=== PATIENT | female | born 1955 ===

== ENCOUNTER 2017-02-05 18:25 | Emergency (ER) | payer SELFPAY ==
[2017-02-05 18:55] VITALS: BP 118/72; PULSE 72; RESP 16; TEMP 98.2; O2SAT 100
--- NOTE | 2017-02-05 19:53 | ED PDOC ---
HPI: Back Time Seen by Provider: 02/05/17 19:06 Chief Complaint (Nursing): Back Pain Chief Complaint (Provider): Back Pain History/Exam Limitations: no limitations Additional Complaint(s): 61 y/o female with a past medical history of chronic back pain, presents to the emergency department with a complaint of severe chronic pain after lifting a laundry bag that had detergent inside. Patient states she cannot lift anything heavy because it starts the pain back up. Reports taking Tramadol and Percocet throughout about 4 hours ago with minimal relief of pain. Denies nausea, vomiting, abdominal pain, urinary symptoms such as bleeding, pain while urinating, or bloody stools. Of note, patient has a history of 3 herniated discs located in the lower back for 7 years. States she had a total of 4 epidural completed but the fourth one affected her appetite and the way she felt. Patient's pain management was Dr. Rizo but due to insurance complications she is no longer his patient. Pain management: Will be scheduled soon. Past Medical History Reviewed: Historical Data, Nursing Documentation, Vital Signs Vital Signs: Last Vital Signs Temp 98.2 F 02/05/17 18:51 Pulse 72 02/05/17 18:51 Resp 16 02/05/17 18:51 BP 118/72 02/05/17 18:51 Pulse Ox 100 02/05/17 18:51 - Medical History PMH: HTN Other PMH: Chronic back pain - Family History Family History: States: Unknown Family Hx - Social History Current smoker - smoking cessation education provided: Yes (Light Smoker < 10 Cigarettes Daily ) Alcohol: None Drugs: Denies - Home Medications Home Medications: Ambulatory Orders Medication Instructions Recorded Ketorolac Tromethamine [Toradol] 10 mg PO TID #30 tab 02/05/17 - Allergies Allergies/Adverse Reactions: Allergies Allergy/AdvReac Type Severity Reaction Status Date / Time No Known Allergies Allergy Verified 02/05/17 18:51 Review of Systems ROS Statement: Except As Marked, All Systems Reviewed And Found Negative Gastrointestinal: Negative for: Nausea, Vomiting, Abdominal Pain, Hematochezia, Hematemesis Genitourinary Female: Negative for: Dysuria, Frequency, Incontinence, Hematuria Musculoskeletal: Positive for: Back Pain, Other (Difficulty walking) Physical Exam - Reviewed Nursing Documentation Reviewed: Yes Vital Signs Reviewed: Yes - Physical Exam Appears: Positive for: Non-toxic, No Acute Distress Head Exam: Positive for: ATRAUMATIC, NORMOCEPHALIC Skin: Positive for: Normal Color, Warm, Dry Gastrointestinal/Abdominal: Positive for: Normal Exam, Soft. Negative for: Tenderness Back: Negative for: Vertebral Tenderness, Other (No midline tenderness) Extremity: Positive for: Normal ROM (Full). Negative for: Other (Negative straigt leg test) Neurologic/Psych: Positive for: Alert, Oriented - ECG O2 Sat by Pulse Oximetry: 100 (RA) Pulse Ox Interpretation: Normal Medical Decision Making Medical Decision Making: Time: 19:06 Initial impression: Exacerbation of chronic back pain Initial plan: --Toradol 30 mg IM --Urinalysis Stat --Revaluation Time: 19:56 --Patient feels relief of pain after medication. Upon provider reevaluation patient is feeling better, is medically stable, and requires no further treatment in the ED at this time. Patient will be discharged home with Rx for Toradol 10 mg. Counseling was provided and all questions were answered regarding diagnosis and need for follow up with pain management. There is agreement to discharge plan. Return if symptoms persist or worsen. Clinical Impression: Exacerbation of chronic back pain Scribe Attestation: Documented by Bren Clark, acting as a scribe for Negra Medina PA-C. Provider Scribe Attestation: All medical record entries made by the Scribe were at my direction and personally dictated by me. I have reviewed the chart and agree that the record accurately reflects my personal performance of the history, physical exam, medical decision making, and the department course for this patient. I have also personally directed, reviewed, and agree with the discharge instructions and disposition. Disposition - Clinical Impression Clinical Impression: Back pain Counseled Patient/Family Regarding: Studies Performed, Rx Given - Disposition Disposition: Routine/Home Disposition Time: 20:00 Condition: STABLE Prescriptions: Ketorolac Tromethamine [Toradol] 10 mg PO TID #30 tab Instructions: Back Pain (ED), Back Exercises (ED)
[2017-02-05 20:42] LABS: RBC URINE 6 /hpf (0-3); URINE BACTERIA FEW (<OCC); URINE BILIRUBIN NEGATIVE (NEGATIVE); URINE BLOOD NEGATIVE (NEGATIVE); URINE COLOR YELLOW (YELLOW); URINE GLUCOSE (UA) NEG (Normal); URINE KETONE NEGATIVE (NEGATIVE); URINE LEUKOCYTE ESTERASE SMALL Leu/uL (Negative); URINE PROTEIN 30 mg/dL (NEGATIVE); URINE UROBILINOGEN 0.2-1.0 mg/dL (0.2-1.0); WBC URINE 16 /hpf (0-5)
== END 2017-02-05 20:22 | disposition home or self-care (01) ==
LOC: H.ER 18:25
DX: M54.9 Dorsalgia, unspecified (principal); G89.29 Other chronic pain; I10 Essential (primary) hypertension
CPT/HCPCS: 81003; 96372; 99282; J1885

== ENCOUNTER 2017-05-27 13:47 | Emergency (ER) | payer MEDICAID ==
[2017-05-27 14:01] VITALS: BP 107/65; PULSE 74; RESP 18; TEMP 96.8; O2SAT 99
== END 2017-05-27 17:52 | disposition left against medical advice (07) ==
LOC: H.ER 13:47
DX: Z02.89 Encounter for other administrative examinations (principal)

== ENCOUNTER 2017-07-28 11:41 | Emergency (ER) | payer MEDICAID ==
[2017-07-28 11:54] VITALS: BP 119/83; PULSE 63; RESP 18; TEMP 97; O2SAT 99
[2017-07-28] MEDS ORDERED: Oxycodone/Acetaminophen 5/325 mg Tab PO STA (12:15)
--- NOTE | 2017-07-28 12:38 | ED PDOC ---
HPI: Back Time Seen by Provider: 07/28/17 12:15 Chief Complaint (Nursing): Back Pain Chief Complaint (Provider): Back pain History Per: Patient History/Exam Limitations: no limitations Onset/Duration Of Symptoms: Hrs (8) Current Symptoms Are (Timing): Still Present Pain Scale Rating Of: 8 Previous Symptoms: Chronic Pain (back) Associated Symptoms: None Additional Complaint(s): Roberta Velasco is a 61 year old female, with a past medical history of herniated disc and HTN, who presents to the emergency department complaining of a worsening chronic back pain onset since 8 hrs ago. She states she has been prescribed Percocet for the pain. Patient reports she spent the whole night taking care of her sick daughter. She also reports stubbing her toe and is concerned of having an injury. She denies any fever or chills. No further medical complaints. PMD: None provided. Past Medical History Vital Signs: Last Vital Signs Temp 97 F L 07/28/17 11:52 Pulse 63 07/28/17 11:52 Resp 18 07/28/17 11:52 BP 119/83 07/28/17 11:52 Pulse Ox 99 07/28/17 11:52 - Medical History PMH: HTN - Family History Family History: States: Unknown Family Hx - Home Medications Home Medications: Ambulatory Orders Medication Instructions Recorded Ketorolac Tromethamine [Toradol] 10 mg PO TID #30 tab 02/05/17 Naproxen 1 tab PO Q12 PRN #10 tab 07/28/17 diaZEpam [Valium] 5 mg PO Q8 PRN #3 tab 07/28/17 - Allergies Allergies/Adverse Reactions: Allergies Allergy/AdvReac Type Severity Reaction Status Date / Time No Known Allergies Allergy Verified 02/05/17 18:51 Review of Systems ROS Statement: Except As Marked, All Systems Reviewed And Found Negative Constitutional: Negative for: Fever, Chills Musculoskeletal: Positive for: Back Pain (chronic lower), Foot Pain (stubbed toe ) Physical Exam - Reviewed Nursing Documentation Reviewed: Yes Vital Signs Reviewed: Yes - Physical Exam Appears: Positive for: Well, Non-toxic, No Acute Distress Head Exam: Positive for: ATRAUMATIC, NORMAL INSPECTION, NORMOCEPHALIC Skin: Positive for: Normal Color, Warm, Dry Eye Exam: Positive for: Normal appearance Neck: Positive for: Normal, Painless ROM, Supple Respiratory: Negative for: Respiratory Distress Back: Positive for: Vertebral Tenderness (mild paralumbar. ) Extremity: Positive for: Other (Ecchymosis noted on 5th right foot) Neurologic/Psych: Positive for: Alert, Oriented - ECG O2 Sat by Pulse Oximetry: 99 (RA) Pulse Ox Interpretation: Normal - Progress ED Course And Treament: xry of foot: no fx Medical Decision Making Medical Decision Making: Initial Impression: Chronic back pain Initial Plan: --Percocet 5/325 mg Tab --Foot right 5th digit (Toe) [RAD] --reevaluation Scribe Attestation: Documented by Anders Bravo, acting as a scribe for Liset PRICE. Provider Scribe Attestation: All medical record entries made by the Scribe were at my direction and personally dictated by me. I have reviewed the chart and agree that the record accurately reflects my personal performance of the history, physical exam, medical decision making, and the department course for this patient. I have also personally directed, reviewed, and agree with the discharge instructions and disposition. Disposition - Clinical Impression Clinical Impression: Chronic back pain, Toe contusion - Patient ED Disposition Is Patient to be Admitted: No - Disposition Referrals: [facility] [Outside] [facility] [Outside] Disposition: Routine/Home Disposition Time: 13:18 Condition: FAIR Prescriptions: diaZEpam [Valium] 5 mg PO Q8 PRN #3 tab PRN Reason: Muscle Spasm Naproxen 1 tab PO Q12 PRN #10 tab PRN Reason: Pain, Moderate (4-7) Instructions: Chronic Back Pain (ED), Foot Contusion (ED) Forms: [employer] (Macedonian), [facility] School/Work Excuse
[2017-07-28] MEDS ORDERED: Oxycodone/Acetaminophen 5/325 mg Tab ONE (13:04)
--- NOTE | 2017-07-28 13:44 | RAD ---
PROCEDURE: Radiographs of the right 5th toe INDICATION: COMPARISON: None. FINDINGS: Bone alignment is normal. There is no evidence of bone destruction or acute fracture. The joint spaces are preserved. The visualized soft tissues are unremarkable. IMPRESSION: No acute fracture or dislocation.
== END 2017-07-28 13:40 | disposition home or self-care (01) ==
LOC: H.ER 11:41
DX: M54.5 Low back pain (principal); S90.112A Contusion of left great toe without damage to nail, initial encounter; W22.8XXA Striking against or struck by other objects, initial encounter; Y92.89 Other specified places as the place of occurrence of the external cause; G89.29 Other chronic pain; I10 Essential (primary) hypertension

== ENCOUNTER 2017-11-29 21:03 | Emergency (ER) | payer MEDICAID ==
[2017-11-29 21:11] VITALS: BP 117/73; PULSE 72; RESP 18; TEMP 98.8; O2SAT 98
--- NOTE | 2017-11-29 21:44 | ED PDOC ---
HPI: General Adult Time Seen by Provider: 11/29/17 21:13 Chief Complaint (Nursing): Back Pain Chief Complaint (Provider): Back pain, left eye discomfort History Per: Patient History/Exam Limitations: no limitations Onset/Duration Of Symptoms: Persistent Have you had recent travel within the past 21 days to any of the following countries: [place], [place], [place] or [place]?: No Additional History Per: Patient Additional Complaint(s): 62yo female, with chronic low back pain, herniated disks, presents to ER complaining of lower back pain. Patient states she took a Percocet tab earlier today with relief of pain however, pain presented again when the "medication wore off." She denies any new trauma, injury, bowel or bladder dysfunction. Patient has a secondary complaint of left eye redness and blurry vision. No other complaints. Past Medical History Reviewed: Historical Data, Nursing Documentation, Vital Signs Vital Signs: Last Vital Signs Temp 98.8 F 11/29/17 21:07 Pulse 72 11/29/17 21:07 Resp 18 11/29/17 21:07 BP 117/73 11/29/17 21:07 Pulse Ox 98 11/29/17 21:49 - Medical History PMH: HTN - Surgical History Surgical History: No Surg Hx - Family History Family History: States: Unknown Family Hx - Home Medications Home Medications: Ambulatory Orders Medication Instructions Recorded Ketorolac Tromethamine [Toradol] 10 mg PO TID #30 tab 02/05/17 diaZEpam [Valium] 5 mg PO Q8 PRN #3 tab 07/28/17 Polymyxin/Trimethoprim Sulfate 1 drop XX Q6H 10 Days bottle 11/29/17 [Polytrim Ophth Soln] oxyCODONE/Acetaminophen [Percocet 1 ea PO Q6H PRN #10 tab 11/29/17 5/325 mg Tab] - Allergies Allergies/Adverse Reactions: Allergies Allergy/AdvReac Type Severity Reaction Status Date / Time No Known Allergies Allergy Verified 02/05/17 18:51 Review of Systems ROS Statement: Except As Marked, All Systems Reviewed And Found Negative Genitourinary Female: Negative for: Dysuria, Incontinence, Hematuria Musculoskeletal: Positive for: Back Pain (lower) Physical Exam - Reviewed Nursing Documentation Reviewed: Yes Vital Signs Reviewed: Yes - Physical Exam Appears: Positive for: Non-toxic, No Acute Distress Head Exam: Positive for: NORMAL INSPECTION Skin: Positive for: Normal Color Eye Exam: Positive for: Normal appearance, EOMI, PERRL. Negative for: Conjunctival injection Neck: Positive for: Supple Cardiovascular/Chest: Positive for: Regular Rate, Rhythm Respiratory: Positive for: Normal Breath Sounds. Negative for: Respiratory Distress Back: Positive for: Other (lower back tenderness, diffuse) Neurologic/Psych: Positive for: Alert, Oriented. Negative for: Motor/Sensory Deficits - ECG O2 Sat by Pulse Oximetry: 98 (RA) Pulse Ox Interpretation: Normal Medical Decision Making Medical Decision Making: Impression: Chronic low back pain Plan: -- Pain medication - Percocet 5/325mg 1045 - PT reports feeling much better on re-revaluation. No recnet Rx on [place] Rx Scribe Attestation: Documented by Ines Spencer acting as a scribe for ALBERT Jeong Provider Attestation: All medical record entries made by the Scribe were at my direction and personally dictated by me. I have reviewed the chart and agree that the record accurately reflects my personal performance of the history, physical exam, medical decision making, and the department course for this patient. I have also personally directed, reviewed, and agree with the discharge instructions and disposition. Disposition - Clinical Impression Clinical Impression: Conjunctivitis, Chronic back pain - Disposition Disposition: Routine/Home Disposition Time: 22:46 Condition: GOOD Prescriptions: oxyCODONE/Acetaminophen [Percocet 5/325 mg Tab] 1 ea PO Q6H PRN #10 tab PRN Reason: Pain, Severe (8-10) Polymyxin/Trimethoprim Sulfate [Polytrim Ophth Soln] 1 drop XX Q6H 10 Days bottle Instructions: Conjunctivitis ([place]), Chronic Pain (DC) Forms: [employer] (Greenlandic)
[2017-11-29] MEDS ORDERED: Oxycodone/Acetaminophen 5/325 mg Tab PO STA (22:02)
== END 2017-11-29 22:50 | disposition home or self-care (01) ==
LOC: H.ER 21:03
DX: M54.9 Dorsalgia, unspecified (principal); H10.9 Unspecified conjunctivitis; G89.29 Other chronic pain; I10 Essential (primary) hypertension

== ENCOUNTER 2017-12-02 12:40 | Emergency (ER) | payer MEDICAID ==
[2017-12-02 12:40] VITALS: BMI 19.8
[2017-12-02 12:47] VITALS: BP 93/60; PULSE 75; RESP 16; TEMP 98.2; O2SAT 100
--- NOTE | 2017-12-02 13:47 | ED PDOC ---
HPI: Back Time Seen by Provider: 12/02/17 12:42 Chief Complaint (Nursing): Back Pain Chief Complaint (Provider): Back pain History Per: Patient History/Exam Limitations: no limitations Onset/Duration Of Symptoms: Days, Persistent Current Symptoms Are (Timing): Still Present Additional Complaint(s): 62yo female, with chronic low back pain, herniated disks, presents to ER complaining of lower back pain. Patient states she took a Percocet tab earlier today with relief of pain however, pain presented again when the "medication wore off." She denies any new trauma, injury, bowel or bladder dysfunction. Patient was seen in this facility on 11/29/17 and was given Percocet 1 tab PO in ER with immediate relief of symptoms. She is currently requesting an injection stating that is what alleviates her pain the best. Past Medical History Reviewed: Historical Data, Nursing Documentation, Vital Signs Vital Signs: Last Vital Signs Temp 98.2 F 12/02/17 12:44 Pulse 75 12/02/17 12:44 Resp 16 12/02/17 12:44 BP 93/60 L 12/02/17 12:44 Pulse Ox 100 12/02/17 12:44 - Medical History PMH: Arthritis (chronic, left knee), Back Problems (herniated discs x3 (low back )), HIV, HTN, Hypercholesterolemia, Hyperlipidemia, Osteoporosis Denies: Diabetes (patient denies), Chronic Kidney Disease - Surgical History Surgical History: (x1) - Family History Family History: States: Unknown Family Hx, Diabetes, Hypertension - Home Medications Home Medications: Ambulatory Orders Medication Instructions Recorded DULoxetine [Cymbalta] 60 mg PO DAILY 11/14/16 Darunavir [Prezista] 800 mg PO HS 11/14/16 Emtricitabine/Tenofovir Diso 1 tab PO HS 11/14/16 [Truvada 200 MG-300 MG] Enalapril Maleate [Vasotec] 5 mg PO DAILY 11/14/16 Ritonavir [Norvir] 100 mg PO HS 11/14/16 Cyclobenzaprine [Flexeril] 10 mg PO TID PRN #20 tab 11/28/16 Ascorbic Acid [Vitamin C] 1 tab PO DAILY 01/14/17 Gabapentin [Neurontin] 800 mg PO TID 01/14/17 QUEtiapine [Seroquel] 100 mg PO HS 01/14/17 traMADol [Ultram] 50 mg PO BID PRN 01/14/17 Aspirin/Dipyridamole [Aggrenox 1 ea PO BID #60 cap 01/17/17 25-200 mg] Atorvastatin [Lipitor] 40 mg PO HS #30 tab 01/17/17 Nicotine 21 mg/24 hr [Nicoderm Cq] 1 patch TD DAILY #30 patch 01/17/17 Nicotine Gum [Nicorette Gum] 2 mg PO Q2H #60 gum 01/17/17 oxyCODONE/Acetaminophen [Percocet 1 ea PO Q4H PRN #10 tab 01/17/17 5/325 mg Tab] valACYclovir [Valtrex] 1 gm PO DAILY #30 tab 01/17/17 oxyCODONE/Acetaminophen [Percocet 1 ea PO Q6H PRN #5 tab 03/17/17 5/325 mg Tab] Cyclobenzaprine [Cyclobenzaprine 10 mg PO BID #14 tab 05/05/17 HCl] Lidocaine 5% [Lidoderm] 1 patch TOP DAILY #7 patch 05/05/17 Naproxen [Naprosyn] 500 mg PO Q12 PRN #20 tablet 05/05/17 Polymyxin/Trimethoprim Sulfate 1 drop XX Q6H 10 Days bottle 06/18/17 [Polytrim Ophth Soln] oxyCODONE/Acetaminophen [Percocet 1 ea PO Q6H PRN #5 tab 06/18/17 5/325 mg Tab] - Allergies Allergies/Adverse Reactions: Allergies Allergy/AdvReac Type Severity Reaction Status Date / Time No Known Allergies Allergy Verified 12/02/17 12:44 Review of Systems ROS Statement: Except As Marked, All Systems Reviewed And Found Negative Constitutional: Negative for: Fever Musculoskeletal: Positive for: Back Pain Neurological: Negative for: Weakness, Numbness Physical Exam - Reviewed Nursing Documentation Reviewed: Yes Vital Signs Reviewed: Yes - Physical Exam Appears: Positive for: Non-toxic, No Acute Distress Head Exam: Positive for: ATRAUMATIC, NORMAL INSPECTION, NORMOCEPHALIC Skin: Positive for: Normal Color Eye Exam: Positive for: Normal appearance Neck: Positive for: Supple Cardiovascular/Chest: Positive for: Regular Rate, Rhythm. Negative for: Murmur Respiratory: Positive for: Normal Breath Sounds. Negative for: Respiratory Distress Back: Positive for: Other (mild tenderness to bilateral paralumbar area) Extremity: Positive for: Normal ROM. Negative for: Deformity, Swelling Neurologic/Psych: Positive for: Alert, Oriented. Negative for: Motor/Sensory Deficits - ECG O2 Sat by Pulse Oximetry: 100 (RA) Pulse Ox Interpretation: Normal Medical Decision Making Medical Decision Making: Impression: Chronic back pain Plan: -- Toradol 30 mg IM Time: 1349 Patient wants to call a cab immediately after she got Toradol IM. She reports feeling better and is eager to go home. Scribe Attestation: Documented by Ines Spencer acting as a scribe for ALBERT Jeong Provider Attestation: All medical record entries made by the Scribe were at my direction and personally dictated by me. I have reviewed the chart and agree that the record accurately reflects my personal performance of the history, physical exam, medical decision making, and the department course for this patient. I have also personally directed, reviewed, and agree with the discharge instructions and disposition. Disposition - Clinical Impression Clinical Impression: Chronic back pain - Disposition Disposition Time: 13:52 Condition: STABLE Instructions: Chronic Pain Forms: [employer] (Citizen [place])
== END 2017-12-02 14:14 | disposition home or self-care (01) ==
LOC: H.ER 12:40 → MERGE 12:40 → H.ER 14:14
DX: G89.29 Other chronic pain (principal); M54.5 Low back pain; I12.9 Hypertensive chronic kidney disease with stage 1 through stage 4 chronic kidney disease, or unspecified chronic kidney disease; Z79.82 Long term (current) use of aspirin; M81.0 Age-related osteoporosis without current pathological fracture; N18.9 Chronic kidney disease, unspecified
CPT/HCPCS: 96372; 99282; J1885

== ENCOUNTER 2017-12-12 18:23 | Emergency (ER) | payer MEDICAID ==
[2017-12-12 18:23] VITALS: BMI 19.8
[2017-12-12 18:28] VITALS: BP 100/65; PULSE 72; RESP 20; TEMP 98.4; O2SAT 99
--- NOTE | 2017-12-12 19:28 | ED PDOC ---
HPI: Back Time Seen by Provider: 12/12/17 19:15 Chief Complaint (Nursing): Back Pain Chief Complaint (Provider): Back Pain History Per: Patient History/Exam Limitations: no limitations Onset/Duration Of Symptoms: Days Current Symptoms Are (Timing): Still Present Quality Of Discomfort: "Pain" Severity: None Previous Symptoms: Chronic Pain Associated Symptoms: None Exacerbating Factor(s): Movement Additional Complaint(s): 62 year old female with a past medical history of herniated disc presents to the emergency department complaining of back pain. The patient states that she was seen here in [place] in last week and was given a shot for pain. She reports that she took percocet at 8am for relief of her symptoms. The patient states that her pain was triggered when she tried to prevent herself from falling the night before. Denies numbness, tingling. Of note: Patient states she will be going to her primary care provider to schedule a time to get a shot of epidural. - Risk Factors AAA Risk Factors: Pos: Older Than 49 Years Of Age, Hypertension Past Medical History Reviewed: Historical Data, Nursing Documentation, Vital Signs Vital Signs: Last Vital Signs Temp 98.4 F 12/12/17 18:25 Pulse 72 12/12/17 18:25 Resp 20 12/12/17 18:25 BP 100/65 12/12/17 18:25 Pulse Ox 99 12/12/17 18:25 - Medical History PMH: Arthritis (chronic, left knee), Back Problems (herniated discs x3 (low back )), HIV, HTN, Hypercholesterolemia, Hyperlipidemia, Osteoporosis, TIA Denies: Diabetes (patient denies), Chronic Kidney Disease - Surgical History Surgical History: (x1) - Family History Family History: States: Unknown Family Hx, Diabetes, Hypertension - Social History Current smoker - smoking cessation education provided: Yes (Heavy Smoker > 10 Cigarettes Daily) Ex-Smoker (has not smoked in the last 12 months): Yes Alcohol: None Drugs: Denies - Home Medications Home Medications: Ambulatory Orders Medication Instructions Recorded DULoxetine [Cymbalta] 60 mg PO DAILY 11/14/16 Darunavir [Prezista] 800 mg PO HS 11/14/16 Emtricitabine/Tenofovir Diso 1 tab PO HS 11/14/16 [Truvada 200 MG-300 MG] Enalapril Maleate [Vasotec] 5 mg PO DAILY 11/14/16 Ritonavir [Norvir] 100 mg PO HS 11/14/16 Cyclobenzaprine [Flexeril] 10 mg PO TID PRN #20 tab 11/28/16 Ascorbic Acid [Vitamin C] 1 tab PO DAILY 01/14/17 Gabapentin [Neurontin] 800 mg PO TID 01/14/17 QUEtiapine [Seroquel] 100 mg PO HS 01/14/17 traMADol [Ultram] 50 mg PO BID PRN 01/14/17 Aspirin/Dipyridamole [Aggrenox 1 ea PO BID #60 cap 01/17/17 25-200 mg] Atorvastatin [Lipitor] 40 mg PO HS #30 tab 01/17/17 Nicotine 21 mg/24 hr [Nicoderm Cq] 1 patch TD DAILY #30 patch 01/17/17 Nicotine Gum [Nicorette Gum] 2 mg PO Q2H #60 gum 01/17/17 oxyCODONE/Acetaminophen [Percocet 1 ea PO Q4H PRN #10 tab 01/17/17 5/325 mg Tab] valACYclovir [Valtrex] 1 gm PO DAILY #30 tab 01/17/17 Ketorolac Tromethamine [Toradol] 10 mg PO TID #30 tab 02/05/17 oxyCODONE/Acetaminophen [Percocet 1 ea PO Q6H PRN #5 tab 03/17/17 5/325 mg Tab] Cyclobenzaprine [Cyclobenzaprine 10 mg PO BID #14 tab 05/05/17 HCl] Lidocaine 5% [Lidoderm] 1 patch TOP DAILY #7 patch 05/05/17 Naproxen [Naprosyn] 500 mg PO Q12 PRN #20 tablet 05/05/17 Polymyxin/Trimethoprim Sulfate 1 drop XX Q6H 10 Days bottle 06/18/17 [Polytrim Ophth Soln] oxyCODONE/Acetaminophen [Percocet 1 ea PO Q6H PRN #5 tab 06/18/17 5/325 mg Tab] diaZEpam [Valium] 5 mg PO Q8 PRN #3 tab 07/28/17 Polymyxin/Trimethoprim Sulfate 1 drop XX Q6H 10 Days bottle 11/29/17 [Polytrim Ophth Soln] oxyCODONE/Acetaminophen [Percocet 1 ea PO Q6H PRN #10 tab 11/29/17 5/325 mg Tab] - Allergies Allergies/Adverse Reactions: Allergies Allergy/AdvReac Type Severity Reaction Status Date / Time No Known Allergies Allergy Verified 02/05/17 18:51 Review of Systems ROS Statement: Except As Marked, All Systems Reviewed And Found Negative Cardiovascular: Negative for: Chest Pain Gastrointestinal: Negative for: Abdominal Pain Musculoskeletal: Positive for: Back Pain Physical Exam - Reviewed Nursing Documentation Reviewed: Yes Vital Signs Reviewed: Yes - Physical Exam Appears: Positive for: Non-toxic, No Acute Distress Head Exam: Positive for: NORMAL INSPECTION Skin: Positive for: Normal Color, Warm, Dry. Negative for: Rash Eye Exam: Positive for: Normal appearance, EOMI, PERRL. Negative for: Nystagmus Back: Positive for: Other (right lower lumbar tenderness). Negative for: L CVA Tenderness, R CVA Tenderness Neurologic/Psych: Positive for: Alert, Oriented - ECG O2 Sat by Pulse Oximetry: 99 (RA) Pulse Ox Interpretation: Normal Medical Decision Making Medical Decision Makin Initial Impression 62 year old female presenting with back pain Initial Plan: * Toradol 30mg IM * Percocet 3/325 mg 1 tab PO * Reevaluation Documented by Charisse Marino acting as a scribe for Liset Downing PA-C. All medical record entries made by the Scribe were at my direction and personally dictated by me. I have reviewed the chart and agree that the record accurately reflects my personal performance of the history, physical exam, medical decision making, and the department course for this patient. I have also personally directed, reviewed, and agree with the discharge instructions and disposition. Disposition - Clinical Impression Clinical Impression: Chronic back pain - Patient ED Disposition Is Patient to be Admitted: No - Disposition Disposition: Routine/Home Disposition Time: 19:58 Condition: FAIR Instructions: Chronic Pain (DC), Low Back Pain (DC) Forms: [employer] (Bahamian)
[2017-12-12] MEDS ORDERED: Oxycodone/Acetaminophen 5/325 mg Tab PO STA (19:30)
== END 2017-12-12 20:23 | disposition home or self-care (01) ==
LOC: H.ER 18:23
DX: M54.9 Dorsalgia, unspecified (principal); E78.00 Pure hypercholesterolemia, unspecified; G89.29 Other chronic pain; I12.9 Hypertensive chronic kidney disease with stage 1 through stage 4 chronic kidney disease, or unspecified chronic kidney disease; Z86.73 Personal history of transient ischemic attack (TIA), and cerebral infarction without residual deficits
CPT/HCPCS: 96372; 99283; J1885

== ENCOUNTER 2018-01-19 15:36 | Emergency (ER) | payer MEDICAID ==
[2018-01-19 15:36] VITALS: BMI 19.8
[2018-01-19 15:42] VITALS: BP 103/62; PULSE 60; RESP 16; TEMP 98.5; O2SAT 99
[2018-01-19] MEDS ORDERED: Oxycodone/Acetaminophen 5/325 mg Tab PO STA (16:10)
--- NOTE | 2018-01-19 16:14 | ED PDOC ---
Upper Extremity Pain/Injury Time Seen by Provider: 01/19/18 15:45 Chief Complaint (Nursing): Upper Extremity Problem/Injury Chief Complaint (Provider): Right Shoulder and Right Hip Pain History Per: Patient History/Exam Limitations: no limitations Onset/Duration Of Symptoms: Other (chronic) Current Symptoms Are (Timing): Still Present Additional Complaint(s): 62 y/o female with a pmhx of arthritis, HIV, HTN, hypercholesterolemia, cardiomegaly, carpal tunnel, radiculopathy, herniated disc, foot drop, and polio , who presents to the ED for evaluation of acute on chronic bursitis pain of the right shoulder and right hip. Patient states she took 3 Ibuprofen prior to arrival without relief. She denies any recent falls or trauma. She states her current symptoms are consistent with past flare ups. Patient states she is compliant with her HIV medication. She also reports her last viral load was checked 2-3 months ago and was undetectable. PMD: Dr. Rizo Past Medical History Reviewed: Historical Data, Nursing Documentation, Vital Signs Vital Signs: Last Vital Signs Temp 98.5 F 01/19/18 15:40 Pulse 60 01/19/18 15:40 Resp 16 01/19/18 15:40 BP 103/62 01/19/18 15:40 Pulse Ox 99 01/19/18 15:40 - Medical History PMH: Arthritis (chronic, left knee), Back Problems (herniated discs x3 (low back )), HIV, HTN, Hypercholesterolemia, Hyperlipidemia, Osteoporosis, TIA Denies: Diabetes (patient denies), Chronic Kidney Disease - Surgical History Surgical History: (x1) Other surgeries: Procedure for polio - Family History Family History: States: Unknown Family Hx, Diabetes, Hypertension - Social History Current smoker - smoking cessation education provided: Yes (7 cigarettes a day) Alcohol: None Drugs: Denies - Home Medications Home Medications: Ambulatory Orders Medication Instructions Recorded DULoxetine [Cymbalta] 60 mg PO DAILY 11/14/16 Darunavir [Prezista] 800 mg PO HS 11/14/16 Emtricitabine/Tenofovir Diso 1 tab PO HS 11/14/16 [Truvada 200 MG-300 MG] Enalapril Maleate [Vasotec] 5 mg PO DAILY 11/14/16 Ritonavir [Norvir] 100 mg PO HS 11/14/16 Cyclobenzaprine [Flexeril] 10 mg PO TID PRN #20 tab 11/28/16 Ascorbic Acid [Vitamin C] 1 tab PO DAILY 01/14/17 Gabapentin [Neurontin] 800 mg PO TID 01/14/17 QUEtiapine [Seroquel] 100 mg PO HS 01/14/17 traMADol [Ultram] 50 mg PO BID PRN 01/14/17 Aspirin/Dipyridamole [Aggrenox 1 ea PO BID #60 cap 01/17/17 25-200 mg] Atorvastatin [Lipitor] 40 mg PO HS #30 tab 01/17/17 Nicotine 21 mg/24 hr [Nicoderm Cq] 1 patch TD DAILY #30 patch 01/17/17 Nicotine Gum [Nicorette Gum] 2 mg PO Q2H #60 gum 01/17/17 oxyCODONE/Acetaminophen [Percocet 1 ea PO Q4H PRN #10 tab 01/17/17 5/325 mg Tab] valACYclovir [Valtrex] 1 gm PO DAILY #30 tab 01/17/17 Ketorolac Tromethamine [Toradol] 10 mg PO TID #30 tab 02/05/17 oxyCODONE/Acetaminophen [Percocet 1 ea PO Q6H PRN #5 tab 03/17/17 5/325 mg Tab] Cyclobenzaprine [Cyclobenzaprine 10 mg PO BID #14 tab 05/05/17 HCl] Lidocaine 5% [Lidoderm] 1 patch TOP DAILY #7 patch 05/05/17 Naproxen [Naprosyn] 500 mg PO Q12 PRN #20 tablet 05/05/17 Polymyxin/Trimethoprim Sulfate 1 drop XX Q6H 10 Days bottle 06/18/17 [Polytrim Ophth Soln] oxyCODONE/Acetaminophen [Percocet 1 ea PO Q6H PRN #5 tab 06/18/17 5/325 mg Tab] diaZEpam [Valium] 5 mg PO Q8 PRN #3 tab 07/28/17 Polymyxin/Trimethoprim Sulfate 1 drop XX Q6H 10 Days bottle 11/29/17 [Polytrim Ophth Soln] oxyCODONE/Acetaminophen [Percocet 1 ea PO Q6H PRN #10 tab 11/29/17 5/325 mg Tab] Acetaminophen [Acetaminophen 8 650 mg PO Q8 #24 tablet.er 01/19/18 Hour] Meloxicam [Mobic] 15 mg PO DAILY #14 tab 01/19/18 - Allergies Allergies/Adverse Reactions: Allergies Allergy/AdvReac Type Severity Reaction Status Date / Time No Known Allergies Allergy Verified 02/05/17 18:51 Review of Systems ROS Statement: Except As Marked, All Systems Reviewed And Found Negative Musculoskeletal: Positive for: Shoulder Pain (right), Other (right hip) Physical Exam - Reviewed Nursing Documentation Reviewed: Yes Vital Signs Reviewed: Yes - Physical Exam Comments: GENERAL APPEARANCE: Patient is awake, alert, oriented x 3, in no acute distress. SKIN: Warm, dry; (-) cyanosis. NECK: Supple, FROM ENT: Mucus membranes moist. CHEST AND RESPIRATORY: (-) chest wall tenderness. Lungs: (-) rales, (-) rhonchi , (-) wheezes; breath sounds equal bilaterally. Speaking in full sentences, respirations even and nonlabored. HEART AND CARDIOVASCULAR: (-) irregularity; (-) murmur, (-) gallop. ABDOMEN AND GI: Soft; (-) tenderness (-) guarding (-) distention. EXTREMITIES: Right shoulder: (+) diffuse tenderness, (+) slighty limited extension and abduction ROM secondary to pain (-) erythema (-) overlying skin changes (-) ecchymosis (-) deformity. Sensation intact. 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 Right Hip: tenderness to lateral right hip (+) slightly limited ROM on flexion secondary to pain (-) erythema (-) overlying skin changes (-) ecchymosis (-) deformity. Sensation intact. NEURO AND PSYCH: Mental status as above. No focal deficit (-) slurred speech (- ) facial droop (-) aphasia. Tongue and uvula midline; (-) facial asymmetry. EOMI and painless. - ECG O2 Sat by Pulse Oximetry: 99 (RA) Pulse Ox Interpretation: Normal Medical Decision Making Medical Decision Makin:10 Initial Impression: Acute on chronic joint pain, bursitis Plan: --Percocet 1 tab --Toradol 30mg IM --Reevaluation 17:29 On reevaluation, patient is complaining of persistent pain. Will administer 5mg Valium PO. Patient reports she is not driving home. 18:11 On re-evaluation, patient reports improvement of symptoms. On exam, patient remains AAOx3, in no acute distress. On exam, neck is supple, lungs CTA, cardiac RRR, abdomen is soft and non-tender, neuro exam shows no focal findings. VSS, Patient is stable for discharge. Based on history and exam results, plan will be for discharge and outpatient follow up. Advised to follow up with primary care physician / referred physician (delia-Dr Steel) in 1-2 days without fail. Advised to take medication as prescribed. Return to the emergency room at any time for any new or worsening symptoms. Patient states she fully agrees with and understands discharge instructions. States that she agrees with the plan and disposition. Verbalized and repeated discharge instructions and plan. I have given the patient opportunity to ask any additional questions. Scribe Attestation: Documented by Orlando Sadler, acting as a scribe for DWAIN Dolan. Provider Scribe Attestation: All medical record entries made by the Scribe were at my direction and personally dictated by me. I have reviewed the chart and agree that the record accurately reflects my personal performance of the history, physical exam, medical decision making, and the department course for this patient. I have also personally directed, reviewed, and agree with the discharge instructions and disposition. Disposition - Clinical Impression Clinical Impression: Chronic pain, Shoulder pain, acute, Hip pain - Patient ED Disposition Is Patient to be Admitted: No Counseled Patient/Family Regarding: Diagnosis, Need For Followup, Rx Given - Disposition Referrals: Miguelito Steel III, MD [Staff Provider] - Disposition: Routine/Home Disposition Time: 18:16 Condition: STABLE Prescriptions: Acetaminophen [Acetaminophen 8 Hour] 650 mg PO Q8 #24 tablet.er Meloxicam [Mobic] 15 mg PO DAILY #14 tab Instructions: Chronic Pain, Hip Pain in Older People, Shoulder Pain (DC) Forms: [employer] (Palauan) Print Language: SCOTTISH - POA Present On Arrival: None
[2018-01-19] MEDS ORDERED: Oxycodone/Acetaminophen 5/325 mg Tab ONE (16:16)
== END 2018-01-19 19:28 | disposition home or self-care (01) ==
LOC: H.ER 15:36
DX: M25.511 Pain in right shoulder (principal); M25.551 Pain in right hip; E78.00 Pure hypercholesterolemia, unspecified; I10 Essential (primary) hypertension; Z86.73 Personal history of transient ischemic attack (TIA), and cerebral infarction without residual deficits; B20 Human immunodeficiency virus [HIV] disease; M81.0 Age-related osteoporosis without current pathological fracture; G89.29 Other chronic pain; Z79.82 Long term (current) use of aspirin
CPT/HCPCS: 96372; 99283; J1885

== ENCOUNTER 2018-08-22 17:19 | Emergency (ER) | payer MEDICAID ==
[2018-08-22 17:19] VITALS: BMI 19.8
[2018-08-22 17:42] VITALS: BP 122/70; PULSE 74; RESP 18; TEMP 98.3; O2SAT 98
--- NOTE | 2018-08-22 18:16 | ED PDOC ---
HPI: Back Time Seen by Provider: 08/22/18 17:43 Chief Complaint (Nursing): Back Pain Chief Complaint (Provider): Chronic Back Pain History Per: Patient History/Exam Limitations: no limitations Onset/Duration Of Symptoms: Days (worsening x2 but chronic x years) Current Symptoms Are (Timing): Still Present Previous Symptoms: Back Pain, Chronic Pain Additional Complaint(s): 62 year old female with history of neuropathy and 3 lumbar disc herniations presents to the ED for acute on chronic lower back pain, worsening for the past 48 hours. Patient states she had no medications at home, prompting visit. She states that she was supposed to get an epidural for her current symptoms but never followed up or went to pain management. She has a history of multiple ED visits secondary to back pain. Patient reports pain is unchanged from past flares and describes pain as a 10 out of 10. She denies fever, chills, urinary problems, chest pain, abdominal pain, nausea, vomiting, diarrhea, shortness of breath, cough, saddle anesthesia, numbness/weakness, or incontinence. PMD: Darrius Past Medical History Reviewed: Historical Data, Nursing Documentation, Vital Signs Vital Signs: Last Vital Signs Temp 98.3 F 08/22/18 17:39 Pulse 74 08/22/18 17:39 Resp 18 08/22/18 17:39 BP 122/70 08/22/18 17:39 Pulse Ox 98 08/22/18 17:39 - Medical History PMH: Arthritis (chronic, left knee), Back Problems (herniated discs x3 (low back)), HIV, HTN, Hypercholesterolemia, Hyperlipidemia, Osteoporosis, TIA - Surgical History Surgical History: (x1) - Family History Family History: States: Unknown Family Hx, Diabetes, Hypertension - Social History Current smoker - smoking cessation education provided: Yes (everyday, half a pack) Alcohol: None Drugs: Denies - Home Medications Home Medications: Ambulatory Orders Medication Instructions Recorded RX: DULoxetine [Cymbalta] 60 mg PO DAILY 11/14/16 RX: Darunavir [Prezista] 800 mg PO HS 11/14/16 RX: Emtricitabine/Tenofovir Diso 1 tab PO HS 11/14/16 [Truvada 200 MG-300 MG] RX: Enalapril Maleate [Vasotec] 5 mg PO DAILY 11/14/16 RX: Ritonavir [Norvir] 100 mg PO HS 11/14/16 RX: Cyclobenzaprine [Flexeril] 10 mg PO TID PRN #20 tab 11/28/16 RX: Ascorbic Acid [Vitamin C] 1 tab PO DAILY 01/14/17 RX: Gabapentin [Neurontin] 800 mg PO TID 01/14/17 RX: QUEtiapine [Seroquel] 100 mg PO HS 01/14/17 RX: traMADol [Ultram] 50 mg PO BID PRN 01/14/17 Nicotine Gum [Nicorette Gum] 2 mg PO Q2H #60 gum 01/17/17 RX: Aspirin/Dipyridamole [Aggrenox 1 ea PO BID #60 cap 01/17/17 25-200 mg] RX: Atorvastatin [Lipitor] 40 mg PO HS #30 tab 01/17/17 RX: Nicotine 21 mg/24 hr [Nicoderm 1 patch TD DAILY #30 patch 01/17/17 Cq] oxyCODONE/Acetaminophen [Percocet 1 ea PO Q4H PRN #10 tab 01/17/17 5/325 mg Tab] valACYclovir [Valtrex] 1 gm PO DAILY #30 tab 01/17/17 Ketorolac Tromethamine [Toradol] 10 mg PO TID #30 tab 02/05/17 oxyCODONE/Acetaminophen [Percocet 1 ea PO Q6H PRN #5 tab 03/17/17 5/325 mg Tab] Cyclobenzaprine [Cyclobenzaprine 10 mg PO BID #14 tab 05/05/17 HCl] Lidocaine 5% [Lidoderm] 1 patch TOP DAILY #7 patch 05/05/17 RX: Naproxen [Naprosyn] 500 mg PO Q12 PRN #20 tablet 05/05/17 Polymyxin/Trimethoprim Sulfate 1 drop XX Q6H 10 Days bottle 06/18/17 [Polytrim Ophth Soln] oxyCODONE/Acetaminophen [Percocet 1 ea PO Q6H PRN #5 tab 06/18/17 5/325 mg Tab] diaZEpam [Valium] 5 mg PO Q8 PRN #3 tab 07/28/17 Polymyxin/Trimethoprim Sulfate 1 drop XX Q6H 10 Days bottle 11/29/17 [Polytrim Ophth Soln] oxyCODONE/Acetaminophen [Percocet 1 ea PO Q6H PRN #10 tab 11/29/17 5/325 mg Tab] Acetaminophen [Acetaminophen 8 650 mg PO Q8 #24 tablet.er 01/19/18 Hour] Meloxicam [Mobic] 15 mg PO DAILY #14 tab 01/19/18 - Allergies Allergies/Adverse Reactions: Allergies Allergy/AdvReac Type Severity Reaction Status Date / Time No Known Allergies Allergy Verified 02/05/17 18:51 Review of Systems ROS Statement: Except As Marked, All Systems Reviewed And Found Negative Musculoskeletal: Positive for: Back Pain (lower) Physical Exam - Reviewed Nursing Documentation Reviewed: Yes Vital Signs Reviewed: Yes - Physical Exam Comments: GENERAL APPEARANCE: Patient is awake, alert, oriented x 3, in no acute distress. SKIN: Warm, dry; (-) cyanosis. ENMT: Mucous membranes moist. Airway patent, (-) stridor. NECK: Supple, FROM CHEST AND RESPIRATORY: (-) rales, (-) rhonchi, (-) wheezes; breath sounds equal bilaterally. Respirations even and nonlabored, speaking in full sentences. HEART AND CARDIOVASCULAR: (-) irregularity ABDOMEN AND GI: Soft; (-) tenderness (-) distention (-) guarding (-) palpable mass. BACK: (+) right paralumbar and sciatic notch tenderness, (-) spasm, (-) direct bony tenderness, (-) deformity. Straight leg raising (+) 15 degrees bilaterally. EXTREMITIES: (-) deformity. Distal pulses good bilaterally. NEURO AND PSYCH: Mental status as above. Intact sensation bilaterally; normal strength in extension of the knees, plantar and dorsiflexion of the toes. Gait: steady. Speech: clear. (-) facial asymmetry. - ECG O2 Sat by Pulse Oximetry: 98 (RA) Pulse Ox Interpretation: Normal Medical Decision Making Medical Decision Making: Time: 1799 Initial Impression: acute on chronic back pain Initial Plan: --Toradol 30 mg IM --Ultram 50 mg PO (not driving) --Re-evaluation 1849 On re-evaluation, patient with persistent pain. Tylenol 650mg PO ordered. 1914 Patient seen ambulating to and from the bathroom without difficulty. 1924 Patient found to have left ED prior to receiving Tylenol PO. Multiple attempts by ED staff to locate patient unsuccessful. Scribe Attestation: Documented by Kelly Du, acting as a scribe for Yoana Eldridge PA-C. Provider Scribe Attestation: All medical record entries made by the Scribe were at my direction and personally dictated by me. I have reviewed the chart and agree that the record accurately reflects my personal performance of the history, physical exam, medical decision making, and the department course for this patient. I have also personally directed, reviewed, and agree with the discharge instructions and disposition. Disposition - Clinical Impression Clinical Impression: Chronic back pain - Patient ED Disposition Is Patient to be Admitted: No - Disposition Disposition: Left W/O Treatment Disposition Time: 19:25 Condition: UNKNOWN - POA Present On Arrival: None
== END 2018-08-22 19:20 | disposition home or self-care (01) ==
LOC: H.ER 17:19
DX: M54.9 Dorsalgia, unspecified (principal)
CPT/HCPCS: 96372; 99282; J1885

== ENCOUNTER 2018-08-25 17:24 | Emergency (ER) | payer MEDICAID ==
[2018-08-25 17:24] VITALS: BMI 19.8
[2018-08-25 17:39] VITALS: RESP 16; O2SAT 100
[2018-08-25] MEDS ORDERED: Morphine 4 MG/ML VIAL IM ONE (18:46)
--- NOTE | 2018-08-25 18:49 | ED PDOC ---
HPI: General Adult Time Seen by Provider: 08/25/18 18:47 Chief Complaint (Nursing): Back Pain Chief Complaint (Provider): right hip pain History Per: Patient (62 y/o female here with right hip/gluteal region pain noted recent return x 1 week. Denies any falls. States she has h/o herniated lumbar discs but also has h/o bursitis trochanteric intermittent that reoccurs. Took tramadol today without relief.) Past Medical History Reviewed: Historical Data, Nursing Documentation, Vital Signs Vital Signs: Last Vital Signs Temp 96.8 F L 08/25/18 17:36 Pulse 83 08/25/18 17:36 Resp 16 08/25/18 17:36 BP 143/79 08/25/18 17:36 Pulse Ox 100 08/25/18 17:36 - Medical History PMH: Arthritis (chronic, left knee), Back Problems (herniated discs x3 (low back)), HIV, HTN, Hypercholesterolemia, Hyperlipidemia, Osteoporosis, TIA Denies: Diabetes (patient denies), Chronic Kidney Disease - Surgical History Surgical History: (x1) - Family History Family History: States: Unknown Family Hx, Diabetes, Hypertension - Home Medications Home Medications: Ambulatory Orders Medication Instructions Recorded DULoxetine [Cymbalta] 60 mg PO DAILY 11/14/16 Darunavir [Prezista] 800 mg PO HS 11/14/16 Emtricitabine/Tenofovir Diso 1 tab PO HS 11/14/16 [Truvada 200 MG-300 MG] Enalapril Maleate [Vasotec] 5 mg PO DAILY 11/14/16 Ritonavir [Norvir] 100 mg PO HS 11/14/16 Cyclobenzaprine [Flexeril] 10 mg PO TID PRN #20 tab 11/28/16 Ascorbic Acid [Vitamin C] 1 tab PO DAILY 01/14/17 Gabapentin [Neurontin] 800 mg PO TID 01/14/17 QUEtiapine [Seroquel] 100 mg PO HS 01/14/17 traMADol [Ultram] 50 mg PO BID PRN 01/14/17 Aspirin/Dipyridamole [Aggrenox 1 ea PO BID #60 cap 01/17/17 25-200 mg] Atorvastatin [Lipitor] 40 mg PO HS #30 tab 01/17/17 Nicotine 21 mg/24 hr [Nicoderm Cq] 1 patch TD DAILY #30 patch 01/17/17 Nicotine Gum [Nicorette Gum] 2 mg PO Q2H #60 gum 01/17/17 oxyCODONE/Acetaminophen [Percocet 1 ea PO Q4H PRN #10 tab 01/17/17 5/325 mg Tab] valACYclovir [Valtrex] 1 gm PO DAILY #30 tab 01/17/17 Ketorolac Tromethamine [Toradol] 10 mg PO TID #30 tab 02/05/17 oxyCODONE/Acetaminophen [Percocet 1 ea PO Q6H PRN #5 tab 03/17/17 5/325 mg Tab] Cyclobenzaprine [Cyclobenzaprine 10 mg PO BID #14 tab 05/05/17 HCl] Lidocaine 5% [Lidoderm] 1 patch TOP DAILY #7 patch 05/05/17 Naproxen [Naprosyn] 500 mg PO Q12 PRN #20 tablet 05/05/17 Polymyxin/Trimethoprim Sulfate 1 drop XX Q6H 10 Days bottle 06/18/17 [Polytrim Ophth Soln] oxyCODONE/Acetaminophen [Percocet 1 ea PO Q6H PRN #5 tab 06/18/17 5/325 mg Tab] diaZEpam [Valium] 5 mg PO Q8 PRN #3 tab 07/28/17 Polymyxin/Trimethoprim Sulfate 1 drop XX Q6H 10 Days bottle 11/29/17 [Polytrim Ophth Soln] oxyCODONE/Acetaminophen [Percocet 1 ea PO Q6H PRN #10 tab 11/29/17 5/325 mg Tab] Acetaminophen [Acetaminophen 8 650 mg PO Q8 #24 tablet.er 01/19/18 Hour] Meloxicam [Mobic] 15 mg PO DAILY #14 tab 01/19/18 Meloxicam [Mobic] 7.5 mg PO BID PRN #14 tab 08/25/18 - Allergies Allergies/Adverse Reactions: Allergies Allergy/AdvReac Type Severity Reaction Status Date / Time No Known Allergies Allergy Verified 02/05/17 18:51 Review of Systems ROS Statement: Except As Marked, All Systems Reviewed And Found Negative Physical Exam - Reviewed Nursing Documentation Reviewed: Yes Vital Signs Reviewed: Yes - Physical Exam Appears: Positive for: Well, Non-toxic, No Acute Distress Head Exam: Positive for: ATRAUMATIC, NORMAL INSPECTION, NORMOCEPHALIC Skin: Positive for: Normal Color, Warm, DRY Eye Exam: Positive for: EOMI, Normal appearance, PERRL ENT: Positive for: Normal ENT Inspection Neck: Positive for: Normal, Painless ROM Cardiovascular/Chest: Positive for: Regular Rate, Rhythm Respiratory: Positive for: CNT, Normal Breath Sounds Gastrointestinal/Abdominal: Positive for: Normal Exam, Soft Back: Positive for: Normal Inspection Extremity: Positive for: Normal ROM Neurologic/Psych: Positive for: Alert, Oriented - ECG O2 Sat by Pulse Oximetry: 100 - Progress ED Course And Treament: Morphine 4 mg IM x 1 dose PELVIC XRY: NO FX NOTED Disposition - Clinical Impression Clinical Impression: Hip pain - Patient ED Disposition Is Patient to be Admitted: No - Disposition Disposition: Routine/Home Disposition Time: 19:36 Condition: STABLE Prescriptions: Meloxicam [Mobic] 7.5 mg PO BID PRN #14 tab PRN Reason: Pain, Moderate (4-7) Instructions: Hip Pain
[2018-08-25] MEDS ORDERED: Morphine 4 MG/ML VIAL ONE (19:01)
[2018-08-25] MEDS ORDERED: Lidocaine 5% Patch TD STA (21:08)
[2018-08-25] MEDS ORDERED: Lidocaine 5% Patch TD ONE (21:50)
[2018-08-25 21:57] VITALS: BP 126/77; PULSE 60; TEMP 98.4
--- NOTE | 2018-08-26 13:59 | RAD ---
PROCEDURE: Right Hip Radiographs. HISTORY: right hip pain COMPARISON: None. FINDINGS: BONES: Normal. No fracture. JOINTS: Normal. SOFT TISSUES: Normal. OTHER FINDINGS: None. IMPRESSION: Normal radiographs of right hip.
== END 2018-08-25 22:08 | disposition home or self-care (01) ==
LOC: H.ER 17:24
DX: M25.551 Pain in right hip (principal)
CPT/HCPCS: 73502; 96372; 99283; J1885; J2270

== ENCOUNTER 2019-01-12 16:07 | Emergency (ER) | payer MEDICAID ==
[2019-01-12 16:07] VITALS: BMI 19.8
[2019-01-12 16:15] VITALS: RESP 16; O2SAT 97
[2019-01-12 18:13] LABS: ALB/GLOB RATIO 1.3 (1.0-2.1); ALBUMIN 4.4 g/dL (3.5-5.0); ALT/SGPT 23 U/L (9-52); AST/SGOT 30 U/L (14-36); BLOOD UREA NITROGEN 18 mg/dl (7-17); CALCIUM 9.6 mg/dL (8.4-10.2); GFR NON-AFRICAN AMERICAN > 60
[2019-01-12 18:15] LABS: BASO % 0.4 % (0.0-2.0); EOS % 0.3 % (0.0-4.0); HEMOGLOBIN 13.1 g/dL (12.0-16.0); LYMPH # 1.5 K/uL (1.0-4.3); LYMPH % 16.4 % (20.0-40.0); MEAN CELL VOLUME 100.2 fl (81.0-99.0); MEAN CORPUSCULAR HEMOGLOBIN 33.1 pg (27.0-31.0); MEAN PLATELET VOLUME 8.9 fl (7.2-11.7); NEUT # 6.7 K/uL (1.8-7.0); NEUT % 71.9 % (50.0-75.0); RBC 3.96 Mil/uL (3.80-5.20); RED CELL DISTRIBUTION WIDTH 15.7 % (11.5-14.5); WHITE BLOOD COUNT 9.3 K/uL (4.8-10.8)
--- NOTE | 2019-01-12 18:38 | ED PDOC ---
Lower Extremity Pain/Injury Time Seen by Provider: 01/12/19 17:12 Chief Complaint (Nursing): Lower Extremity Problem/Injury History Per: Patient History/Exam Limitations: no limitations Onset/Duration Of Symptoms: Days Additional Complaint(s): 63 yo F with h/o HTN, arthritis, pinched nerves presents for right foot pain, swelling and redness for 5 days. Originally started out as just pain, then got swollen, then red and has continues to get worse. Pt denies any injury, cuts, abrasions or falls. She reports the pain has been so bad she has trouble bearing weight and has to use a walker. She has been taking Advil with minimal improvement. Pt reports surgery to the foot when she was 9yo for polio, but no problems since. Denies fever, chills, numbness or tingling PMD: Dr. Rizo Past Medical History Reviewed: Historical Data, Nursing Documentation, Vital Signs Vital Signs: Last Vital Signs Temp 98.2 F 01/12/19 16:13 Pulse 57 L 01/12/19 16:13 Resp 16 01/12/19 16:13 BP 126/92 H 01/12/19 16:13 Pulse Ox 97 01/12/19 16:13 - Medical History PMH: Arthritis (chronic, left knee), Back Problems (herniated discs x3 (low back)), HIV, HTN, Hypercholesterolemia, Hyperlipidemia, Osteoporosis, TIA Denies: Diabetes (patient denies), Chronic Kidney Disease - Surgical History Surgical History: (x1) Other surgeries: R foot surgery - Family History Family History: States: Unknown Family Hx, Diabetes, Hypertension - Home Medications Home Medications: Ambulatory Orders Medication Instructions Recorded DULoxetine [Cymbalta] 60 mg PO DAILY 11/14/16 Darunavir [Prezista] 800 mg PO HS 11/14/16 Emtricitabine/Tenofovir Diso 1 tab PO HS 11/14/16 [Truvada 200 MG-300 MG] Enalapril Maleate [Vasotec] 5 mg PO DAILY 11/14/16 Ritonavir [Norvir] 100 mg PO HS 11/14/16 Cyclobenzaprine [Flexeril] 10 mg PO TID PRN #20 tab 11/28/16 Ascorbic Acid [Vitamin C] 1 tab PO DAILY 01/14/17 Gabapentin [Neurontin] 800 mg PO TID 01/14/17 QUEtiapine [Seroquel] 100 mg PO HS 01/14/17 traMADol [Ultram] 50 mg PO BID PRN 01/14/17 Aspirin/Dipyridamole [Aggrenox 1 ea PO BID #60 cap 01/17/17 25-200 mg] Atorvastatin [Lipitor] 40 mg PO HS #30 tab 01/17/17 Nicotine 21 mg/24 hr [Nicoderm Cq] 1 patch TD DAILY #30 patch 01/17/17 Ketorolac Tromethamine [Toradol] 10 mg PO TID #30 tab 02/05/17 Lidocaine 5% [Lidoderm] 1 patch TOP DAILY #7 patch 05/05/17 Naproxen [Naprosyn] 500 mg PO Q12 PRN #20 tablet 05/05/17 Polymyxin/Trimethoprim Sulfate 1 drop XX Q6H 10 Days bottle 06/18/17 [Polytrim Ophth Soln] diaZEpam [Valium] 5 mg PO Q8 PRN #3 tab 07/28/17 Acetaminophen [Acetaminophen 8 650 mg PO Q8 #24 tablet.er 01/19/18 Hour] Meloxicam [Mobic] 15 mg PO DAILY #14 tab 01/19/18 Meloxicam [Mobic] 7.5 mg PO BID PRN #14 tab 08/25/18 Cephalexin [Keflex] 500 mg PO BID 7 Days #14 capsule 01/12/19 Naproxen 500 mg PO BID #20 tab 01/12/19 - Allergies Allergies/Adverse Reactions: Allergies Allergy/AdvReac Type Severity Reaction Status Date / Time No Known Allergies Allergy Verified 01/12/19 16:13 Physical Exam - Reviewed Nursing Documentation Reviewed: Yes Vital Signs Reviewed: Yes - Physical Exam Comments: GENERAL APPEARANCE: Patient is awake, alert, oriented x 3, in mild-moderate obvious discomfort SKIN: Warm, dry; (-) cyanosis. LOWER EXTREMITY: pulses + 2, capillary refill <2sec, RLE: (+) mild to moderate swelling and tenderness to diffuse top of foot (+) erythema to diffuse top of foot (+)warm to touch, (+)decrease ROM due to pain, no abrasions/lacerations (+) well healed scar to posterior heel, Achilles tendon intact and nontender. Knee and foot: (-) injury (+)FROM, NVI CARDIOVASCULAR: (+) distal pulse. NEUROLOGIC: (+) distal sensation. - Laboratory Results Result Diagrams: 01/12/19 17:57 01/12/19 17:57 Lab Results: Total Bilirubin 0.7 mg/dl (0.2-1.3) 01/12/19 17:57 AST 30 U/L (14-36) 01/12/19 17:57 ALT 23 U/L (9-52) 01/12/19 17:57 Alkaline Phosphatase 91 U/L (38-126) 01/12/19 17:57 Total Protein 7.9 G/DL (6.3-8.2) 01/12/19 17:57 Albumin 4.4 g/dL (3.5-5.0) 01/12/19 17:57 Globulin 3.5 gm/dL (2.2-3.9) 01/12/19 17:57 Albumin/Globulin Ratio 1.3 (1.0-2.1) 01/12/19 17:57 - ECG O2 Sat by Pulse Oximetry: 97 Medical Decision Making Medical Decision Makin 63 yo F with foot pain, swelling, redness, likely cellulitis -- labs -- xray --toradol IV -- re eval 1829 XR reviewed by me - no acute fx, dislocation or concerns for osteo call placed to podiatry 1844 spoke to podiatry, recommends ESR be sent, and will come here shortly 1939 pt seen by podiatry, surgical shoe applied, ESR 42 so possible soft tissue infection vs gout, recommends keflex and Naproxen, f/u outpt with clinic or with pt's own automatic pilot mechanic Discussed results, diagnosis, treatment, return precautions and f/u with pt who is understanding, in agreement and stable for dc Disposition - Clinical Impression Clinical Impression: Cellulitis of foot - Patient ED Disposition Is Patient to be Admitted: No Counseled Patient/Family Regarding: Studies Performed, Diagnosis, Need For Followup, Rx Given - Disposition Referrals: Podiatry Clinic [Outside] Ned Man, [facility] [[facility]] - Frederick Gonzalez DPM [Non-Staff] - Disposition: Routine/Home Disposition Time: 19:42 Condition: IMPROVED Additional Instructions: Take medications as prescribed. Follow up with your automatic pilot mechanic or the one as referred. Thank you for letting us take care of you today. The emergency medical care you received today was directed at your acute symptoms. If you were prescribed any medication, please fill it and take as directed. It may take several days for your symptoms to resolve. Return to the Emergency Department if your symptoms worsen, do not improve, or if you have any other problems. Please contact your doctor in 2 days for re-evaluation and follow up / or call one of the physicians/clinics you have been referred to that are listed on the Patient Visit Information form that is included in your discharge packet. Bring any paperwork you were given at discharge with you along with any medications you are taking to your follow up visit. Our treatment cannot replace ongoing medical care by a primary care provider (PCP) outside of the emergency department. Prescriptions: Cephalexin [Keflex] 500 mg PO BID 7 Days #14 capsule Naproxen 500 mg PO BID #20 tab Instructions: Cellulitis (Skin Infection), Adult (DC) Forms: [employer] ([place]) Print Language: ROMANIAN - POA Present On Arrival: None
[2019-01-12 20:39] VITALS: BP 109/59; PULSE 72; TEMP 99.2
--- NOTE | 2019-01-13 07:34 | CP.PCM.CON ---
History of Present Illness - History of Present Illness History of Present Illness: Podiatry consult note for Dr. Man 63 year old female with PMHx of HTN, arthritis, pinched nerves presents for right foot pain, swelling and redness for 5 days. Patient states her pain originally started in the ankle and then moved to her toes. Patient reports the erythema gradually worsened. Pt denies any injury, cuts, abrasions or falls. She reports the pain has been so bad she has trouble bearing weight and has to use a walker. She has been taking Advil with minimal improvement. Pt reports surgery to the foot when she was 9yo for polio, but no problems since. 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 Rizo Review of Systems - Review of Systems All systems: reviewed and no additional remarkable complaints except Review of Systems: As per HPI Past Patient History - Infectious Disease Hx of Infectious Diseases: None - Tetanus Immunizations Tetanus Immunization: Unknown - Past Medical History & Family History Past Medical History?: Yes - Past Social History Smoking Status: Heavy Smoker > 10 Cigarettes Daily - CARDIAC Hx Hypercholesterolemia: Yes Hx Hypertension: Yes - PULMONARY Hx Respiratory Disorders: No - NEUROLOGICAL Hx Transient Ischemic Attacks (TIA): Yes - HEENT Hx HEENT Problems: Yes Other/Comment: Use contact lenses - RENAL Hx Chronic Kidney Disease: No - ENDOCRINE/METABOLIC Hx Endocrine Disorders: No - HEMATOLOGICAL/ONCOLOGICAL Hx Human Immunodeficiency Virus (HIV): Yes - INTEGUMENTARY Hx Dermatological Problems: No - MUSCULOSKELETAL/RHEUMATOLOGICAL Hx Arthritis: Yes (chronic, left knee) Hx Osteoporosis: Yes - GASTROINTESTINAL Hx Gastrointestinal Disorders: No - GENITOURINARY/GYNECOLOGICAL Hx Genitourinary Disorders: No - PSYCHIATRIC Hx Psychophysiologic Disorder: No Hx Substance Use: No - SURGICAL HISTORY Hx Surgeries: Yes Hx Section: Yes (x1) Hx Orthopedic Surgery: Yes - ANESTHESIA Hx Anesthesia: Yes Hx Anesthesia Reactions: No Hx Malignant Hyperthermia: No Meds Home Medications: Home Medication List Medication Instructions Recorded Confirmed Type Cephalexin [Keflex] 500 mg PO BID 7 Days #14 capsule 01/12/19 Rx Naproxen 500 mg PO BID #20 tab 01/12/19 Rx Allergies/Adverse Reactions: Allergies Allergy/AdvReac Type Severity Reaction Status Date / Time No Known Allergies Allergy Verified 01/12/19 16:13 Physical Exam - Constitutional Appears: Well, Non-toxic, No Acute Distress - Head Exam Head Exam: ATRAUMATIC, NORMOCEPHALIC - Extremities Exam Additional comments: lower Extremity Exam VASC: DP and PT 2/4 bilaterally, CFT less than 3 seconds X 10, TG warm to warm R, within normal limits on the left, no edema NEURO: grossly intact DERM: erythema noted from the level of the ankle and going distally to the digits, increased warmth noted, no wound, no open lesions, no purulence, no malodor, signs of skin infection noted ORTHO: diffuse pain on palpation to the right foot, no pain with ankle range of motion, MSK not assessed as patient guarding due to pain - Neurological Exam Neurological exam: Alert, Oriented x3 - Psychiatric Exam Psychiatric exam: Normal Affect, Normal Mood Results - Vital Signs Recent Vital Signs: Last Vital Signs Temp 99.2 F 01/12/19 20:00 Pulse 72 01/12/19 20:00 Resp 16 01/12/19 20:00 BP 109/59 L 01/12/19 20:00 Pulse Ox 97 01/12/19 20:06 - Labs Result Diagrams: 01/12/19 17:57 01/12/19 17:57 Labs: Laboratory Results - last 24 hr 01/12/19 01/12/19 01/12/19 17:57 17:57 18:58 WBC 9.3 RBC 3.96 Hgb 13.1 Hct 39.7 MCV 100.2 H MCH 33.1 H MCHC 33.0 RDW 15.7 H Plt Count 250 MPV 8.9 Neut % (Auto) 71.9 Lymph % (Auto) 16.4 L [place] % (Auto) 11.0 H Eos % (Auto) 0.3 Baso % (Auto) 0.4 Neut # (Auto) 6.7 Lymph # (Auto) 1.5 [place] # (Auto) 1.0 H Eos # (Auto) 0.0 Baso # (Auto) 0.0 ESR 42 H Sodium 135 Potassium 3.9 Chloride 101 Carbon Dioxide 26 Anion Gap 12 BUN 18 H Creatinine 0.6 L Est GFR ( Amer) > 60 Est GFR (Non-Af Amer) > 60 Random Glucose 103 Calcium 9.6 Total Bilirubin 0.7 AST 30 ALT 23 Alkaline Phosphatase 91 Total Protein 7.9 Albumin 4.4 Globulin 3.5 Albumin/Globulin Ratio 1.3 Assessment & Plan - Assessment and Plan (Free Text) Assessment: 63 y/o female seen and evaluated for right foot pain, gout vs. cellulitis Plan: Patient seen and evaluated Plan discussed with Dr. Man Chart, labs and vitals reviewed- afebrile, absent leukocytosis Patient explained symptoms secondary to either gout or cellulitis Patient will be discharged home on Rx Kelfex 500 mg BID 7 days and Naproxen for inflammation/pain Patient agreeable with plan Patient provided with surgical shoe for ambulation Patient advised she must follow up with Casing Worker within 1 week Patient to return to Ed if any signs of infection noted Patient demonstrated understanding Thank you for the consult - Date & Time Date: 01/13/19 Time: 14:52
--- NOTE | 2019-01-13 10:01 | RAD ---
Date of service: 01/12/2019 PROCEDURE: Right Foot Radiographs. HISTORY: cellulitis, r/o osteo COMPARISON: None. TECHNIQUE: 3 views obtained. FINDINGS: BONES: Bone alignment and mineralization are normal. There is no acute displaced fracture or bone destruction. JOINTS: Normal. SOFT TISSUES: There is linear calcification at the calcaneal attachment of the Achilles tendon. OTHER FINDINGS: None. IMPRESSION: No acute displaced fracture or dislocation. No radiographic evidence for osteomyelitis. Linear calcification at the calcaneal attachment of Achillis tendon.
== END 2019-01-12 20:00 | disposition home or self-care (01) ==
LOC: H.ER 16:07
DX: L03.115 Cellulitis of right lower limb (principal); B20 Human immunodeficiency virus [HIV] disease; E78.00 Pure hypercholesterolemia, unspecified; F17.210 Nicotine dependence, cigarettes, uncomplicated; I10 Essential (primary) hypertension; M81.0 Age-related osteoporosis without current pathological fracture; Z86.73 Personal history of transient ischemic attack (TIA), and cerebral infarction without residual deficits
CPT/HCPCS: 73630; 80053; 85025; 85651; 96374; 99285; J1885

== ENCOUNTER 2019-01-23 00:15 | Inpatient (IN) | payer MEDICAID ==
[2019-01-23 00:15] VITALS: BMI 19.8
[2019-01-23] MEDS ORDERED: DiphenhydrAMINE 50 mg/ml Inj IVP STA (00:51)
[2019-01-23] MEDS ORDERED: DiphenhydrAMINE 50 mg/ml Inj ONE (01:01)
--- NOTE | 2019-01-23 01:09 | ED PDOC ---
HPI: General Adult Time Seen by Provider: 01/23/19 00:40 Chief Complaint (Nursing): ENT Problem Chief Complaint (Provider): ENT Problem History Per: Patient History/Exam Limitations: no limitations, other Onset/Duration Of Symptoms: Hrs (@330pm ) Current Symptoms Are (Timing): Still Present Additional Complaint(s): Patient is a 63 year old female with a past medical history of HIV, HTN, and HLD, who presents to the emergency department complaining of swelling of her tongue and jaw with difficulty speaking and swallowing. She states at around 330pm she looked in the mirror and noticed that the right side of her tongue was inflamed and at around 5pm she noticed to have more swelling. Later in the day, she started to see it spread to her jaw. Patient then states that swelling went down on the right side but moved to the left side of her tongue and jaw that spread down her neck as well. She states it has become hard for her to swallow or speak. Patient states that she was here on Thursday complaining about her foot and was discharged with antibiotics. She has been taking Keflax that was prescribed to her but states that she stopped taking the drug a day or two ago. She denies having any other complaints. PMD: Dr. Rizo, infectious disease specialist Past Medical History Reviewed: Historical Data, Nursing Documentation, Vital Signs Vital Signs: Last Vital Signs Temp 98.3 F 01/23/19 00:37 Pulse 89 01/23/19 00:37 Resp 18 01/23/19 00:37 BP 156/83 H 01/23/19 00:37 Pulse Ox 100 01/23/19 00:37 - Medical History PMH: Arthritis (chronic, left knee), Back Problems (herniated discs x3 (low back)), HIV, HTN, Hypercholesterolemia, Hyperlipidemia, Osteoporosis, TIA Denies: Diabetes (patient denies), Chronic Kidney Disease - Surgical History Surgical History: (x1) - Family History Family History: States: Unknown Family Hx, Diabetes, Hypertension - Home Medications Home Medications: Ambulatory Orders Medication Instructions Recorded DULoxetine [Cymbalta] 60 mg PO DAILY 11/14/16 Darunavir [Prezista] 800 mg PO HS 11/14/16 Emtricitabine/Tenofovir Diso 1 tab PO HS 11/14/16 [Truvada 200 MG-300 MG] Enalapril Maleate [Vasotec] 5 mg PO DAILY 11/14/16 Ritonavir [Norvir] 100 mg PO HS 11/14/16 Ascorbic Acid [Vitamin C] 1 tab PO DAILY 01/14/17 Gabapentin [Neurontin] 800 mg PO TID 01/14/17 QUEtiapine [Seroquel] 100 mg PO HS 01/14/17 Aspirin/Dipyridamole [Aggrenox 1 ea PO BID #60 cap 01/17/17 25-200 mg] Atorvastatin [Lipitor] 40 mg PO HS #30 tab 01/17/17 Nicotine 21 mg/24 hr [Nicoderm Cq] 1 patch TD DAILY #30 patch 01/17/17 Meloxicam [Mobic] 15 mg PO DAILY #14 tab 01/19/18 Cephalexin [Keflex] 500 mg PO BID 7 Days #14 capsule 01/12/19 Cyclobenzaprine [Flexeril] 10 mg PO DAILY 01/23/19 - Allergies Allergies/Adverse Reactions: Allergies Allergy/AdvReac Type Severity Reaction Status Date / Time No Known Allergies Allergy Verified 01/23/19 00:36 Review of Systems ROS Statement: Except As Marked, All Systems Reviewed And Found Negative ENT: Positive for: Mouth Swelling, Throat Swelling, Other (difficulty speaking and swallowing) Physical Exam - Reviewed Nursing Documentation Reviewed: Yes Vital Signs Reviewed: Yes - Physical Exam Appears: Positive for: Non-toxic, No Acute Distress Head Exam: Positive for: ATRAUMATIC, NORMOCEPHALIC Skin: Positive for: Normal Color, Warm, Dry Eye Exam: Positive for: Normal appearance, EOMI, PERRL ENT: Positive for: Pharynx Is (clear with no pooling of secretion), Other (left side of tongue and soft tissue submandibular positive for swelling; (+) fluctuance and swelling ot the anterior neck) Neck: Positive for: Normal, Painless ROM, Supple Cardiovascular/Chest: Positive for: Regular Rate, Rhythm. Negative for: Murmur Respiratory: Positive for: Normal Breath Sounds. Negative for: Respiratory Distress Extremity: Positive for: Normal ROM. Negative for: Pedal Edema, Deformity Neurological/Psych: Positive for: Alert, Oriented - Laboratory Results Result Diagrams: 01/24/19 04:50 01/24/19 04:50 - ECG O2 Sat by Pulse Oximetry: 100 (RA) Pulse Ox Interpretation: Normal - Critical Care Total Time (In Min): 120 Notes:: Critical Care: The high probability of sudden, clinically significant deterioration in the patient's condition required the highest level of my preparedness to intervene urgently. The services I provided to this patient were to treat and/or prevent clinically significant deterioration that could result in: respiratory failure. Services included the following: chart data review, reviewing nursing notes and/or old charts, documentation time, clinical education consultant collaboration regarding findings and treatment options, medication orders and management, direct patient care, re-evaluations, vital sign assessments and ordering, interpreting and reviewing diagnostic studies/lab tests. Aggregate critical care time was 120 minutes which includes only time during which I was engaged in work directly related to the patient's care, as described above, whether at the bedside or elsewhere in the Emergency Department. It did not include time spent performing other reported procedures or the services of residents, students, nurses or physician assistants. Medical Decision Making Medical Decision Making: Time: 0049 A/P: Work up for changing swelling of the face. Located initially on the right side and now is only on the left side with anterior neck involvement. No signs of infection. Not typical anaphylactic picture with no signs of infection such as fever or erythema. Will get labs, CT maxillofacial and soft tissue neck. Pos sible ductile involvement. Will reassess patient. Patient will most likely be admitted for observation. --Venous blood gas --CT neck soft tissue with contrast --EKG --BMP --CBC with differential --Chest xray --Benadryl 50 mg IVP --SOLU-Medrol 125 mg IVP Time: 0358 CT neck soft tissue with contrast findings: PHARYNX: There is prominent soft tissue swelling and hypodensity in the right tonsillar region and right oropharynx and right nasopharynx, with deviation of the airway to the left. There is at least a question of right-sided thickening at the level of the vocal cords as well. There is retropharyngeal soft tissue swelling as well. It is difficult to exclude abscess, including the possibility of retropharyngeal abscess. However, a very well defined fluid collection is not seen. Therefore, this could simply represent retropharyngeal cellulitis. Surgical explanation could be considered if clinically indicated. LARYNX: Normal appearance of the larynx. Unremarkable epiglottis. RETROPHARYNGEAL SPACE: The retropharyngeal soft tissues appear within normal limits. SALIVARY GLANDS: Unremarkable appearance of the parotid, submandibular, and sublingual glands. LYMPH NODES: No significant neck adenopathy. THYROID: The thyroid gland is unremarkable. No nodule is evident. BONES: No acute osseous abnormality. No aggressive appearing osseous lesion. MISCELLANEOUS: There is mucosal thickening of multiple bilateral ethmoid air cells. Mucosal thickening of the right maxillary sinus with questionable tiny air fluid level in the right maxillary sinus. As noted above, there is moderate narrowing of the airway at the supraglottic and glottic levels. Please correlate clinically and if indicated intubation could be performed. IMPRESSION: 1. There is prominent soft tissue swelling and hypodensity in the right tonsillar region and right oropharynx and right nasopharynx, with deviation of the airway to the left. There is at least a question of right-sided thickening at the level of the vocal cords as well. There is retropharyngeal soft tissue swelling as well. It is difficult to exclude abscess, including the possibility of retropharyngeal abscess. However, a very well defined fluid collection is not seen. Therefore, this could simply represent retropharyngeal cellulitis. Surgical explanation could be considered if clinically indicated. 2. As noted above, there is moderate narrowing of the airway at the supraglottic and glottic levels. Please correlate clinically and if indicated intubation could be performed. 3. These findings are being telephoned to the referring clinician's at the time of interpretation. Time: 408 --Discussed findings with patient and patient states that she is now having difficulty swallowing secretions. Patient agrees for elective intubation. Time: 411 --Discussed case with Dr. Lea. Pt intubated with 7.5 ET tube and post sedation initiated with Propofol. BP dropped with inadequate sedation on Propofol so Fentanyl was added with improved sedation. CXR confirmed ET tube placement as well as good waveform on ETCO2 Capnography. Dr. Lea was present through intubation and agreed with the need for intubation and ICU admission. Pt started on clindamycin for possible infectious source of swelling and cultures sent. Pt to be admitted to the ICU and ENT consult has been placed. Scribe Attestation: Documented by Rishabh Willis, acting as a scribe Thad Hart MD. Provider Scribe Attestation: All medical record entries made by the Scribe were at my direction and personally dictated by me. I have reviewed the chart and agree that the record accurately reflects my personal performance of the history, physical exam, medical decision making, and the department course for this patient. I have also personally directed, reviewed, and agree with the discharge instructions and disposition. Procedures - Intubation Time of Intubation: 04:36 Intubation Method: orotracheal Tube Size (cm): 7.5 Medications: Succinylcholine Breath Sounds after Intubation: equal Intubation Complications: no complications (difficult intubation as right sided swelling from oropharynx to chords made ET tube placement challenging, however, no complications. ) Post Intubation Xray: Yes Disposition - Clinical Impression Clinical Impression: Dysphagia - Disposition Disposition Time: 04:55 Condition: GUARDED
[2019-01-23 01:14] LABS: BASO # 0.1 K/uL (0.0-0.2); BASO % 0.5 % (0.0-2.0); EOS % 0.1 % (0.0-4.0); HEMOGLOBIN 14.1 g/dL (12.0-16.0); LYMPH # 1.3 K/uL (1.0-4.3); LYMPH % 11.8 % (20.0-40.0); MEAN CELL VOLUME 97.4 fl (81.0-99.0); MEAN CORPUSCULAR HEMOGLOBIN 32.9 pg (27.0-31.0); MEAN CORPUSCULAR HGB CONC 33.8 g/dL (33.0-37.0); MEAN PLATELET VOLUME 8.4 fl (7.2-11.7); MONO # 0.8 K/uL (0.0-0.8); MONO % 6.7 % (0.0-10.0); NEUT # 9.2 K/uL (1.8-7.0); NEUT % 80.9 % (50.0-75.0); RBC 4.27 Mil/uL (3.80-5.20); RED CELL DISTRIBUTION WIDTH 15.2 % (11.5-14.5); WHITE BLOOD COUNT 11.3 K/uL (4.8-10.8)
[2019-01-23 01:26] LABS: VENOUS BLOOD GAS BASE EXCESS 3.2 mmol/L (0.0-2.0); VENOUS BLOOD GAS PCO2 45 mmHg (40-60); VENOUS BLOOD GAS PO2 22 mm/Hg (30-55); VENOUS BLOOD PH 7.41 (7.32-7.43)
[2019-01-23 01:26] LABS: BLOOD UREA NITROGEN 21 mg/dl (7-17); CALCIUM 10.1 mg/dL (8.4-10.2); GFR NON-AFRICAN AMERICAN > 60
[2019-01-23] MEDS ORDERED: Iohexol 300 100 ML IJ ONE (02:35)
[2019-01-23] MEDS ORDERED: Sodium Chloride 0.9% 50 ML IV ONE (02:35)
[2019-01-23] MEDS ORDERED: Succinylcholine 200 mg/10 ml Inj IV ONE ×2 (04:16→04:19)
[2019-01-23] MEDS ORDERED: Etomidate 20 mg/10ml Inj IV ONE ×2 (04:16→04:19)
[2019-01-23] MEDS ORDERED: Propofol 10 mg/ml 1,000 MG/100 ML VIAL ONE ×2 (04:22→21:38)
[2019-01-23] MEDS ORDERED: Propofol 10 mg/ml 1,000 MG/100 ML VIAL IV SCH ×2 (04:30→05:00)
[2019-01-23] MEDS ORDERED: Midazolam 2 MG/2 ML VIAL ONE (04:46)
[2019-01-23] MEDS ORDERED: Midazolam 2 MG/2 ML VIAL IV STA (04:50)
[2019-01-23] MEDS ORDERED: Clindamycin in NS 300 MG/50 ML BAG IVPB STA (04:57)
[2019-01-23] MEDS: Fentanyl Citrate 2,500 MCG in Dextrose 5% In Water 200 ML IV SCH (05:26)
[2019-01-23] MEDS ORDERED: Sodium Chloride 0.9% 1,000 ML IV STA (05:35)
--- NOTE | 2019-01-23 08:54 | CP.PCM.HP ---
<Govind Fernando - Last Filed: 01/23/19 10:32> History of Present Illness - History of Present Illness History of Present Illness: Hx taken from chart since patient is intubated and sedated at time of exam PMD: Dr Rizo [facility] 63 y/o F with Hx if HIV, Systolic CHF, HTN, Smoker, TIA presented to ED c/o tongue swelling and difficulty swallowing. Clinic notes reviewed and patient last CD4/Viral load were 864/<20 on Sep 2018, neg Hep C, GC/Chl and RPR. It seems also that patient was c/o tongue ulcer for the past few weeks. On ED WBC was 11s with slight left shift and a BMP was unremarkable. Neck CT report: There is prominent soft tissue swelling and hypodensity in the right tonsillar region and right oropharynx and right nasopharynx, with deviation of the airway to the left. There is at least a question of right-sided thickening at the level of the vocal cords as well. There is retropharyngeal soft tissue swelling as well. As per ER note patient started c/o difficulty swallowing saliva and agreed to elective intubation. Patient was given one dose of IV Clindamycin and posteriorly intubated and admitted to ICU. Vital signs were stable and patient was afebrile. Present on Admission - Present on Admission Any Indicators Present on Admission: No Review of Systems - Review of Systems Review of Systems: Deferred due to patient intubated Past Patient History - Infectious Disease Hx of Infectious Diseases: None - Tetanus Immunizations Tetanus Immunization: Unknown - Past Medical History & Family History Past Medical History?: Yes - Past Social History Smoking Status: Heavy Smoker > 10 Cigarettes Daily - CARDIAC Hx Cardiac Disorders: Yes Hx Hypercholesterolemia: Yes Hx Hypertension: Yes - PULMONARY Hx Respiratory Disorders: Yes Hx Emphysema: Yes - NEUROLOGICAL Hx Neurological Disorder: Yes - HEENT Hx HEENT Problems: Yes Hx Difficulty Chewing: Yes - RENAL Hx Chronic Kidney Disease: Yes Other/Comment: chronic kidney disease - ENDOCRINE/METABOLIC Hx Endocrine Disorders: No - HEMATOLOGICAL/ONCOLOGICAL Hx Blood Disorders: Yes Hx Human Immunodeficiency Virus (HIV): Yes - INTEGUMENTARY Hx Dermatological Problems: No - MUSCULOSKELETAL/RHEUMATOLOGICAL Hx Musculoskeletal Disorders: Yes Hx Arthritis: Yes Hx Back Pain: Yes Hx Herniated Disk: Yes - GASTROINTESTINAL Hx Gastrointestinal Disorders: No - GENITOURINARY/GYNECOLOGICAL Hx Genitourinary Disorders: No - PSYCHIATRIC Hx Psychophysiologic Disorder: No - SURGICAL HISTORY Hx Surgeries: Yes Hx Section: Yes (x1) Hx Orthopedic Surgery: Yes - ANESTHESIA Hx Anesthesia: Yes Hx Anesthesia Reactions: No (unable assess) Hx Malignant Hyperthermia: No (unable assess) Has any member of the family had a problem w/ anesthesia?: No Meds Allergies/Adverse Reactions: Allergies Allergy/AdvReac Type Severity Reaction Status Date / Time No Known Allergies Allergy Verified 01/23/19 00:36 Physical Exam - Constitutional Appears: Other (Intubated) - Eye Exam Eye Exam: PERRL - ENT Exam ENT Exam: Mucous Membranes Moist - Respiratory Exam Respiratory Exam: Clear to Auscultation Bilateral - Cardiovascular Exam Cardiovascular Exam: +S1, +S2. absent: Gallop - GI/Abdominal Exam GI & Abdominal Exam: Normal Bowel Sounds, Soft - Extremities Exam Extremities exam: Positive for: normal capillary refill. Negative for: pedal edema - Neurological Exam Additional comments: Responds slightly to verbal stimuli and pain. Intubated and sedated - Skin Skin Exam: Normal Color, Warm Results - Vital Signs Recent Vital Signs: Last Vital Signs Temp 96.4 F L 01/23/19 08:00 Pulse 54 L 01/23/19 08:00 Resp 12 01/23/19 08:00 BP 93/52 L 01/23/19 08:00 Pulse Ox 100 01/23/19 08:00 - Labs Result Diagrams: 01/23/19 01:05 01/23/19 01:05 Labs: Laboratory Results - last 24 hr 01/23/19 01/23/19 01/23/19 01:05 01:05 01:22 WBC 11.3 H RBC 4.27 Hgb 14.1 Hct 41.6 MCV 97.4 D MCH 32.9 H MCHC 33.8 RDW 15.2 H Plt Count 329 MPV 8.4 Neut % (Auto) 80.9 H Lymph % (Auto) 11.8 L Jerome % (Auto) 6.7 Eos % (Auto) 0.1 Baso % (Auto) 0.5 Neut # (Auto) 9.2 H Lymph # (Auto) 1.3 Jerome # (Auto) 0.8 Eos # (Auto) 0.0 Baso # (Auto) 0.1 pO2 22 L VBG pH 7.41 VBG pCO2 45 VBG HCO3 25.8 VBG Total CO2 29.9 H VBG O2 Sat (Calc) 38.5 L VBG Base Excess 3.2 H VBG Potassium 4.0 Glucose 150 H Lactate 1.5 FiO2 21.0 Sodium 136 137.0 Potassium 4.1 Chloride 99 99.0 Carbon Dioxide 28 Anion Gap 13 BUN 21 H Creatinine 0.9 Est GFR ( Amer) > 60 Est GFR (Non-Af Amer) > 60 Random Glucose 149 H Calcium 10.1 Venous Blood Potassium 4.0 Assessment & Plan - Assessment and Plan (Free Text) Assessment: -Retropharingeal abscess vs cellulitis Acute/Suspected CT: There is prominent soft tissue swelling and hypodensity in the right tonsillar region and right oropharynx and right nasopharynx, with deviation of the airway to the left. There is at least a question of right-sided thickening at the level of the vocal cords as well. There is retropharyngeal soft tissue swelling as well. Intubated last night Start Vanco and Unasyn IV ENT consulted: Recs appreciated ID consulted: Recs appreciated -HIV without AIDS Clinic notes reviewed Last CD4/Viral load 09/2018: 864/<20 Neg Hep C Ab, GC/Chl and RPR -Systolic congestive heart failure, unspecified congestive heart failure chronicity c/w same medications Last Echo 2017 EF 35 % Last stress test Lexicon 2017. Recently seen by Cardio as outpatient -Hypertension controlled with lisinopril 2,5 mg daily. -Pulmonary emphysema, unspecified emphysema type chronic, controlled c/w combivent respimat. -Hx of TIA Hold aggrenox for now -DVT prophylaxis Lovenox 40 mg daily <Muriel Domingo - Last Filed: 01/23/19 13:17> Results - Vital Signs Recent Vital Signs: Last Vital Signs Temp 96.8 F L 01/23/19 12:00 Pulse 50 L 01/23/19 12:00 Resp 12 01/23/19 12:00 BP 93/52 L 01/23/19 12:00 Pulse Ox 100 01/23/19 12:00 - Labs Result Diagrams: 01/23/19 01:05 01/23/19 01:05 Labs: Laboratory Results - last 24 hr 01/23/19 01/23/19 01/23/19 01:05 01:05 01:22 WBC 11.3 H RBC 4.27 Hgb 14.1 Hct 41.6 MCV 97.4 D MCH 32.9 H MCHC 33.8 RDW 15.2 H Plt Count 329 MPV 8.4 Neut % (Auto) 80.9 H Lymph % (Auto) 11.8 L Jerome % (Auto) 6.7 Eos % (Auto) 0.1 Baso % (Auto) 0.5 Neut # (Auto) 9.2 H Lymph # (Auto) 1.3 Jerome # (Auto) 0.8 Eos # (Auto) 0.0 Baso # (Auto) 0.1 pO2 22 L VBG pH 7.41 VBG pCO2 45 VBG HCO3 25.8 VBG Total CO2 29.9 H VBG O2 Sat (Calc) 38.5 L VBG Base Excess 3.2 H VBG Potassium 4.0 Glucose 150 H Lactate 1.5 FiO2 21.0 Sodium 136 137.0 Potassium 4.1 Chloride 99 99.0 Carbon Dioxide 28 Anion Gap 13 BUN 21 H Creatinine 0.9 Est GFR ( Amer) > 60 Est GFR (Non-Af Amer) > 60 Random Glucose 149 H Calcium 10.1 Venous Blood Potassium 4.0 Attending/Attestation - Attestation I have personally seen and examined this patient.: Yes I have fully participated in the care of the patient.: Yes I have reviewed all pertinent clinical information: Yes Notes (Text): Pharyngeal/Tonsillar and Retropharyngeal Swelling r/o Abscess -Hx obtained from med records as pt was intubated in ED . Pt was intubated for airway protection , unable to swallow saliva -start IV Vancitz Unasyn - ENT consult - Dr Gonsalves - rec to add IV Steroids - ID consult Dr Cowan - rec to add IV Clinda - will d/c JESSICA inhibitor in case it is contributing to edema Chronic CHF systolic dysfunction with EF 35% - Hold JESSICA inhibitor as may cause angioedema HIV asymptomatic - last CD4 count 800s with undetectable viral load - restart HAART Hx of TIA - hold Aggrenox as pt may need to undergo surgical drainage Depression - cont Cymbalta and Seroquel DVT proph - SCD for now
[2019-01-23] MEDS ORDERED: methylPREDNISolone 60 MG in Sodium Chloride 0.9% 50 ML IV SCH (09:00)
[2019-01-23] MEDS: Potassium Chl 20 mEq in NS 1,000 ML IV SCH (09:40)
[2019-01-23] MEDS: DiphenhydrAMINE 50 mg/ml Inj IVP SCH ×2 (09:47→16:16)
--- NOTE | 2019-01-23 12:20 | CT ---
Date of service: 01/23/2019 PROCEDURE: CT NECK WITH CONTRAST HISTORY: Anterior neck swelling. COMPARISON: None available. TECHNIQUE: CT of the neck with intravenous contrast. Coronal and sagittal reformats generated. Intravenous contrast dose: Radiation dose: Total exam DLP = 246.48 mGy-cm. This CT exam was performed using one or more of the following dose reduction techniques: Automated exposure control, adjustment of the mA and/or kV according to patient size, and/or use of iterative reconstruction technique. FINDINGS: Note that the examination is limited with obscuration of portions of the oral cavity due to significant streak and beam hardening artifact arising from multiple dental implants. NASOPHARYNX: Unremarkable. SUPRAHYOID NECK: There are nonspecific soft tissue swelling-edematous appearing changes seen in the region of the right palatine tonsil extending superiorly for short distance into the right posterior nasopharyngeal soft tissues the and inferiorly into the right retropharyngeal soft tissues including parapharyngeal. The changes result in compressive effects on the airway which is displaced to the right-side. There is also asymmetry of the vallecula and pyriform sinus on the right which are compressed.. Edema appears to cross midline at the level of the lingual tonsils and. Rule out angioedema. A diffuse cellulitis wall with retropharyngeal involvement cannot be excluded. Clinical correlation recommended. There is also slight medial position of the right true vocal cord possibly due to edematous changes as well.. Questionable left-sided sublingual-submandibular edema Mild infiltration seen within the anterior subcutaneous tissues of the neck at the submandibular region. There are multiple small to medium-sized bilateral level 1 and level 2 lymph nodes. GLANDS: Parotid and submandibular glands unremarkable. Normal size thyroid gland, without nodule. LYMPH NODES: There are multiple small to medium-sized level 1 and level 2 lymph nodes. CERVICAL SPINE: There is mild reversal of the normal cervical lordosis possibly due to patient positioning in the gantry however underlying element of muscle spasm may contribute. Clinical correlation recommended. VASCULAR STRUCTURES: There is calcified atherosclerotic plaque seen at the level of the distal aspect left common carotid artery extending superiorly into the posteromedial aspect of the carotid bifurcation and proximal internal carotid artery. Changes result in narrowing of the proximal internal carotid artery estimated at approximately the 65 % Mild calcified plaque seen at the right carotid bifurcation and proximal internal carotid artery with estimated narrowing at approximately 30% OTHER FINDINGS: Mild biapical pleural thickening and parenchymal scarring right greater than left.. Small bleb changes seen in the right lung apex IMPRESSION: There are nonspecific soft tissue swelling-edematous appearing changes seen in the region of the right palatine tonsil extending superiorly for short distance into the right posterior nasopharyngeal soft tissues the and inferiorly into the right retropharyngeal soft tissues including parapharyngeal. The changes result in compressive effects on the airway which is displaced to the right-side. There is also asymmetry of the vallecula and pyriform sinus on the right which are compressed.. Edema appears to cross midline at the level of the lingual tonsils and. Rule out angioedema. A diffuse cellulitis wall with retropharyngeal involvement cannot be excluded. Clinical correlation recommended. There is also slight medial position of the right true vocal cord possibly due to edematous changes as well. Questionable left-sided sublingual-submandibular edema.
[2019-01-23] MEDS ORDERED: Chlorhexidine Gluconate 1 APPL/PKT TP ONE (12:26)
--- NOTE | 2019-01-23 14:52 | RAD ---
Date of service: 01/23/2019 HISTORY: NGT tube COMPARISON: Comparison made with prior study 01/23/2019. TECHNIQUE: 1 view obtained. FINDINGS: In situ ETT, tip of which lies approximately 4.7 cm above grady. NGT is present,, the tip of which has not been included on this film though distal aspect does appear lie below EG junction. LUNGS: No active pulmonary disease. PLEURA: No significant pleural effusion identified, no pneumothorax apparent. CARDIOVASCULAR: Mild aortic atherosclerotic calcification present. Borderline cardiomegaly. No pulmonary vascular congestion. OSSEOUS STRUCTURES: No significant abnormalities. VISUALIZED UPPER ABDOMEN: Normal. OTHER FINDINGS: None. IMPRESSION: ETT and NGT as above. No acute consolidation.
--- NOTE | 2019-01-23 14:55 | RAD ---
Date of service: 01/23/2019 HISTORY: possible admission COMPARISON: Comparison chest dated 09/10/2017. TECHNIQUE: 1 view obtained. FINDINGS: LUNGS: No active pulmonary disease. PLEURA: No significant pleural effusion identified, no pneumothorax apparent. Minor biapical pleural thickening CARDIOVASCULAR: Mild aortic atherosclerotic calcification present. Borderline/mild cardiomegaly. No pulmonary vascular congestion. OSSEOUS STRUCTURES: No significant abnormalities. VISUALIZED UPPER ABDOMEN: Normal. OTHER FINDINGS: None. IMPRESSION: No acute consolidation
--- NOTE | 2019-01-23 14:56 | RAD ---
Date of service: 01/23/2019 HISTORY: post intubation COMPARISON: Comparison made with prior chest radiograph dated 01/23/2019 at 0158 hr TECHNIQUE: 1 view obtained. FINDINGS: Interval 5.2 cm above grady. Placement ETT, the tip of which lies approximately LUNGS: Low lung volumes common crowded bronchovascular markings and mild bibasilar atelectasis. PLEURA: No significant pleural effusion identified, no pneumothorax apparent. CARDIOVASCULAR: Mild aortic atherosclerotic calcification present. Heart size borderline enlarged no pulmonary vascular congestion. OSSEOUS STRUCTURES: No significant abnormalities. VISUALIZED UPPER ABDOMEN: Normal. OTHER FINDINGS: None. IMPRESSION: Interval placement ETT as described. Low lung volumes common crowded bronchovascular markings and mild bibasilar atelectasis.
--- NOTE | 2019-01-23 15:25 | CARD ---
APPROVED REPORT Date of service: 01/23/2019 EKG Measurement Heart [id number] <Conclusion> Sinus rhythm with frequent premature ventricular complexes Left axis deviation Abnormal ECG
[2019-01-23 16:55] LABS: ABG ALLEN TEST YES; ARTERIAL BLOOD GAS HCO3 24.5 mmol/L (21-28); ARTERIAL BLOOD GAS HEMOGLOBIN 12.3 g/dL (11.7-17.4); ARTERIAL BLOOD GAS O2 CAPACITY 17.7 mL/dL (16-24); ARTERIAL BLOOD GAS O2 CONTENT 17.3 ML/dL (15-23); ARTERIAL BLOOD GAS O2 SAT 97.5 % (95-98); ARTERIAL BLOOD GAS PCO2 46 mm/Hg (35-45); ARTERIAL BLOOD GAS PH 7.35 (7.35-7.45); ARTERIAL BLOOD GAS PO2 227 mm/Hg (80-100); ARTERIAL BLOOD GAS TCO2 26.8 mmol/L (22-28)
[2019-01-23] MEDS: Clindamycin 600mg/50ml NS 600 MG/50 ML BAG IVPB SCH (17:31)
--- NOTE | 2019-01-23 21:19 | PN ---
PROCEDURE DATE: 01/23/2019 CRITICAL CARE PROGRESS NOTE SUBJECTIVE: The patient is seen and evaluated at the bedside. PAST MEDICAL, SURGICAL, FAMILY AND SOCIAL HISTORY: Reviewed as noted in the history and physical. A 63-year-old female with history significant for HIV positive, hypertension, non-ischemic cardiomyopathy with an EF around 35%, normal CD4 count, undetected viral load, negative hepatitis C, and RPR. Was seen in ER on Thursday for infection in the foot, given Keflex, took medications for 2 days and returned to ER early this morning complaining of swelling of her tongue and jaw with difficulty speaking and swallowing. The patient was electively intubated for airway protection after a CAT scan of soft tissue and neck obtained showed prominent soft tissue swelling and hypodensity in the right tonsillar region, right oropharynx, and right nasopharynx with deviation of the airway to the left and admitted to ICU. Sedated on Diprivan drip and fentanyl and given IV fluids x1 liter. ALLERGIES: NONE DOCUMENTED. MEDICATIONS: Her medications at home reviewed and include lisinopril and Keflex in addition to the antiretrovirals medications. PHYSICAL EXAMINATION: GENERAL: Middle-aged female, orally intubated on mechanical ventilation. AC/PRBC rate 12, tidal volume 400 mL, FIO2 of 40%, saturating 100%, minute ventilation 5.1 liters, observed rate tidal volume 430, observed respiratory rate 12, peak airway pressure of 14, end-tidal CO2 32. VITAL SIGNS: Temperature 96.8, heart rate 50-58 regular, blood pressure 93/52, mean arterial pressure of 65. Intake and output to be done. Weight 123 pounds. HEAD, EYES, EARS, NOSE, AND THROAT: Endotracheal tube in place and position. NG tube placed. Repeat chest x-ray pending. CHEST: Bilateral breath sounds clear to auscultation. HEART: Rhythm regular. S1, S2 normal. ABDOMEN: Bowel sounds present. Soft. EXTREMITIES: No clubbing, cyanosis, or edema. Capillary refill less than 2 seconds. DP palpable. NEUROLOGIC: Intubated on mechanical ventilation, off the sedation now, and response to verbal commands. CURRENT MEDICATIONS: Ampicillin 1.5 g IV every 6 hours, vancomycin 1 g IV every 12 hours, clindamycin 600 mg IV every 8 hours, Darunavir 800 mg NG b.i.d., Benadryl 25 mg IV every 8 hours, Cymbalta 60 mg NG daily, Truvada 1 tablet p.o./NG tube daily, Lovenox 40 mg subcu daily, Pepcid 20 mg IV every 12 hours, fentanyl drip 2 mcg/kg per hour, Solu-Medrol 60 mg IV every 8 hours, nicotine patch one patch daily, potassium chloride, IV fluids, sodium chloride with 20 mEq KCl at 100 mL/hour, Seroquel 100 mg p.o. h.s., and Norvir 100 mg p.o. h.s. LABORATORY DATA: WBC 11.3, hemoglobin 14.1, hematocrit 41.6, platelet count 329 with neutrophils 80.9, lymphocytes 11.8, and monocytes 6.7. ABG; pH of 7.4, pO2 22, pCO2 of 45, lactate 1.5. SMA-7; sodium 136, potassium 4.1, chloride 99, CO2 28, blood urine nitrogen 21, creatinine 0.9, random glucose 149, calcium 10.1, and potassium 4. Microbiology none reported. DIAGNOSTIC DATA: Chest x-ray; endotracheal tube in place. No new infiltrate. A soft tissue neck CT report from in-hospital shows nonspecific soft tissue swelling, edematous appearing, changes seen in the region of the right palatine tonsil extending superiorly for short distance into the right posterior nasopharyngeal soft tissue and inferiorly into the right retropharyngeal soft tissues including parapharyngeal. The changes result in a compressive effects of the airway, which is displaced to the right. There is also asymmetry of the vallecula and piriform sinus on the right, which are compressed and edematous appears to cross midline at the level of the lingular tonsil. Rule out angioedema. Diffuse cellulitis wall with retropharyngeal involvement cannot be excluded. IMPRESSION: 1. Neurologic: Alert and awake with difficulty to swallow secretions at the presentation. Currently intubated and on mechanical ventilation and nonsedated. 2. Pulmonary: Intubated for airway protection. 3. Cardiac: History of HIV related cardiomyopathy. Negative ischemic heart disease with a EF of 35% on enalapril in the past. We will hold the enalapril until the angioedema or the anaphylaxis related to JESSICA inhibitor is ruled out. Once we resume, we will start with ARB. 4. Infectious Disease: To rule out retropharyngeal cellulitis versus the angioedema. Seen by ID consult. On vancomycin, clindamycin, and ampicillin empirically. HIV positive with good CD4 count and low viral load, on antiretrovirals medications. 5. Hematology: Mild leukocytosis likely reactive and due to steroids. Hemoglobin and hematocrit stable with normal platelet count and normal lactate level. 6. Chemistry: Normal. 7. Renal: No acute issues. Normal anion gap. No acute electrolyte abnormalities noted. 8. GI: No acute issues. Keep head of bed 30 degrees[address] in [address] for adequate intake and output. Continue DVT prophylaxis. Discussed with ENT and recommend a followup CT of the soft tissue neck in the morning. Toño Treviño MD
[2019-01-23] MEDS: Propofol 10 mg/ml 1,000 MG/100 ML VIAL IV SCH (21:44)
[2019-01-23] MEDS: Emtricitabine-Tenofovir 200 mg-300 mg Tab PO SCH (21:53)
[2019-01-24] MEDS: Clindamycin 600mg/50ml NS 600 MG/50 ML BAG IVPB SCH ×3 (00:04→16:29)
[2019-01-24] MEDS: DiphenhydrAMINE 50 mg/ml Inj IVP SCH ×3 (00:08→16:27)
[2019-01-24] MEDS: Fentanyl Citrate 2,500 MCG in Dextrose 5% In Water 200 ML IV SCH ×2 (00:21→17:53)
[2019-01-24] MEDS: Potassium Chl 20 mEq in NS 1,000 ML IV SCH (00:31)
--- NOTE | 2019-01-24 02:03 | CON ---
DATE: 01/23/2019 REASON FOR CONSULTATION: Possible throat abscess. HISTORY OF PRESENT ILLNESS: This is a 63-year-old female, admitted to the hospital yesterday with swelling of the throat and dysphagia. The patient had a CAT scan done, which revealed phlegmonous changes in the throat. The patient is currently intubated and cannot answer any questions. PAST MEDICAL HISTORY: As noted in the chart by me. MEDICATIONS: As noted in the chart by me. ALLERGIES: As noted in the chart by me. PHYSICAL EXAMINATION: HEAD: Atraumatic and normocephalic. FACE: Cannot be assessed since the patient is intubated and not following commands. CONSTITUTIONAL: Well fed, well nourished. COMMUNICATION: The patient cannot communicate secondary to ET tube. EXTERNAL NOSE AND EARS: No masses, no lesions, no erythema, no edema. INTERNAL NOSE AND EARS: Deviated septum, limited exam secondary to NG tube. No masses, no lesions, no erythema, no edema. ORAL CAVITY AND OROPHARYNX: Limited exam secondary to ET tube. No masses, no lesions. Mild erythema of the throat, almost no erythema. LIPS AND GUMS: No masses, no lesions, no erythema, no edema. NECK: Supple. THYROID: No thyromegaly, no goiter. LYMPH NODES: No lymphadenopathy of the neck. LABORATORY DATA: CAT scan was reviewed by me and revealed phlegmonous changes. No definite collection noted. ASSESSMENT: 1. Dysphagia. 2. Possible airway obstruction which is why the patient was intubated. 3. Deviated septum. 4. Possible allergic reaction. PLAN: We will continue steroids and IV antibiotics for now. We will redo the CAT scan tomorrow to see if the patient's throat has improved or not. If there is no improvement, the patient has to go to the operating room for exploration. If the patient's edema has subsided, then the patient can be extubated and discharged home on antibiotics and steroids. Tyrel Gonsalves MD
--- NOTE | 2019-01-24 03:40 | CON ---
DATE: 01/23/2019 INFECTIOUS DISEASE CONSULT HISTORY OF PRESENT ILLNESS: The patient is a 63-year-old female with history of HIV, congestive heart failure, HTN, smoker, and a past history of TIA. She came to the emergency room complaining of tongue swelling and difficulty swallowing. The patient had been in the ER previously in a week for some peripheral extremity difficulty and was put on antibiotics. This history was taken from the notes as the patient was intubated. There was always some complaint of a tongue ulcer for the past few weeks. The most recent CD4 count was 864 and viral load was less than 20 or undetectable. PAST MEDICAL HISTORY: Includes previously no HIV. She is being seen at the [facility], has problem with a herniated disc and is taking HIV medications, will be given to her later. ALLERGIES: SHE DOES NOT HAVE ANY ALLERGIES NOTED. PHYSICAL EXAMINATION: GENERAL: The patient was intubated. NECK: Noted on the CT report, there is a trauma and soft tissue swelling and hypodensity in the right tonsillar region and right oropharynx and also in the right nasopharynx with deviation of the airway to the left. There is at least a question of right sided thickening at the level of the vocal cords as well. There is a retropharyngeal soft tissue swelling as well. Noted in the emergency room notes, it shows that she started having difficult swallowing saliva and agreed to be intubated. The patient was given a dose of clindamycin in the ER and intubated and is in the ICU. LUNGS: There are some decreased breath sounds bilaterally. HEART: Regular sinus rhythm. ABDOMEN: Soft, positive bowel sounds. EXTREMITIES: No CCE. NEUROLOGIC: The patient responds to verbal stimuli even though she is intubated. LABORATORY DATA: There is no cultures from this admission. Previous one to that are positive. Creatinine is 0.9. GFR is greater than 60. White count 11.3 with a left shift. Platelets are 329. CT has already been noted. IMPRESSION AND PLAN: Retropharyngeal abscess versus cellulitis versus possibility of acute immune reaction or allergic reaction. She has been started on vancomycin, Unasyn, and I have added clindamycin to the treatment. Await discussion with Otolaryngology. She also has hypertension, congestive heart failure, and chronic obstructive pulmonary disease. Also, with history of transient ischemic attack. The patient is also on antiretroviral therapy. Rubén Cowan MD
[2019-01-24 05:38] LABS: BASO % 0.1 % (0.0-2.0); LYMPH # 0.6 K/uL (1.0-4.3); LYMPH % 6.4 % (20.0-40.0); MEAN CELL VOLUME 100.4 fl (81.0-99.0); MEAN CORPUSCULAR HGB CONC 32.8 g/dL (33.0-37.0); MEAN PLATELET VOLUME 8.6 fl (7.2-11.7); MONO # 0.3 K/uL (0.0-0.8); MONO % 3.1 % (0.0-10.0); NEUT # 8.5 K/uL (1.8-7.0); NEUT % 90.4 % (50.0-75.0); NRBC % 0.1 % (0.0-0.0); PLATELET COUNT 261 K/uL (130-400); RBC 3.59 Mil/uL (3.80-5.20); RED CELL DISTRIBUTION WIDTH 15.7 % (11.5-14.5); WHITE BLOOD COUNT 9.5 K/uL (4.8-10.8)
[2019-01-24 05:40] LABS: PROTHROMBIN TIME 11.2 Seconds (9.8-13.1)
[2019-01-24 05:43] LABS: PARTIAL THROMBOPLASTIN TIME 26.2 Seconds (25.6-37.1)
[2019-01-24 05:45] LABS: HEMOGLOBIN 11.8 g/dL (12.0-16.0)
[2019-01-24 05:45] LABS: ABG ALLEN TEST YES; ARTERIAL BLOOD GAS HCO3 24.9 mmol/L (21-28); ARTERIAL BLOOD GAS HEMOGLOBIN 11.4 g/dL (11.7-17.4); ARTERIAL BLOOD GAS O2 CAPACITY 16.3 mL/dL (16-24); ARTERIAL BLOOD GAS O2 CONTENT 15.8 ML/dL (15-23); ARTERIAL BLOOD GAS O2 SAT 97.2 % (95-98); ARTERIAL BLOOD GAS PCO2 40 mm/Hg (35-45); ARTERIAL BLOOD GAS PO2 174 mm/Hg (80-100)
[2019-01-24 05:51] LABS: ALB/GLOB RATIO 1.2 (1.0-2.1); ALBUMIN 3.8 g/dL (3.5-5.0); ALT/SGPT 28 U/L (9-52); AST/SGOT 30 U/L (14-36); BLOOD UREA NITROGEN 17 mg/dl (7-17); CALCIUM 8.9 mg/dL (8.4-10.2); GFR NON-AFRICAN AMERICAN > 60
--- NOTE | 2019-01-24 07:38 | RAD ---
Date of service: 01/24/2019 HISTORY: ETT placement COMPARISON: No prior. TECHNIQUE: 1 view obtained. FINDINGS: LUNGS: Endotracheal tube is unchanged in position with orogastric tube identified placed terminating at the left upper quadrant abdomen. No airspace disease identified bilaterally on acute basis. PLEURA: No significant pleural effusion identified, no pneumothorax apparent. CARDIOVASCULAR: No aortic atherosclerotic calcification present. Normal cardiac size. No pulmonary vascular congestion. OSSEOUS STRUCTURES: No significant abnormalities. VISUALIZED UPPER ABDOMEN: Normal. OTHER FINDINGS: None. IMPRESSION: Stable endotracheal intubation as well as orogastric tube placement. No acute cardiopulmonary disease in the interval.
--- NOTE | 2019-01-24 07:40 | CP.CCUPN ---
CCU Subjective - Physician Review Events Since Last Encounter (Free Text): 01/24/19 The patient was Seen and examined by me at the bedside during ICU round, Medical records reviewed and Management issues were discussed and formulated with the house staff. Events reviewed Patient is a 63 years old female with past medical history of hypertension, hyperlipidemia, nonischemic cardiomyopathy, HIV positive Who presented to the emergency room with complaint of tongue and jaw swelling with difficulty speaking and swallowing Patient was electively intubated with 7.5 ET tube in ER for airway protection Neck soft tissue CT scan revealed prominent soft tissue swelling and hypodensity in the right tonsillar region and right oropharynx and right nasopharynx, with deviation of the airway to the left. concerning for cellulitis Vs retropharyngeal abscess She is currently sedated and orally intubated Afebrile on broad-spectrum antibiotic coverage Scheduled for repeat CT scan of the neck today Due to possibility of angioedema as contributing to facial swelling, JESSICA inhibitor discontinued 01/24/19 18:[address] scan reviewed, would like to get ENT follow-up prior to extubation We will start tube feeding Critical Care Time Spent (in minutes): 45 CCU Objective - Vital Signs / Intake & Output Vital Signs (Last 4 hours): Vital Signs Temp Pulse Resp BP Pulse Ox 01/24/19 07:00 52 L 12 108/54 L 100 01/24/19 06:00 53 L 13 112/61 100 01/24/19 05:00 53 L 12 122/65 100 01/24/19 04:00 98.1 F 53 L 12 111/59 L 100 Intake and Output (Last 8hrs): Intake & Output 01/23/19 01/24/19 01/24/19 22:59 06:59 14:59 Intake Total 2146 1084 Output Total 9002 1000 Balance -6856 84 Intake: IV 1196 884 Intake, Piggyback 850 200 Oral 0 Tube Feeding 100 Output: Urine 9002 1000 Urethral (Dick) 9002 1000 Other: # Bowel Movements 0 - Physical Exam Physical Exam Limitations: Positive for: Clinical Condition Head: Positive for: Atraumatic, Normocephalic Pupils: Positive for: PERRL. Negative for: Sluggish, Non-Reactive Extroacular Muscles: Positive for: EOMI. Negative for: Gaze Palsy, Entrapment Conjunctiva: Positive for: Normal. Negative for: Injected, Icteric Ears: Positive for: Normal Mouth: Positive for: Moist Mucous Membranes Nose (Internal): Positive for: Normal Inspection Neck: Positive for: Normal Range of Motion, Trachea Midline. Negative for: Meningeal Signs, MIDLINE TENDERNESS, Paraspinal Tenderness, JVD, Lymphadenopathy, Bruit, Other Respiratory/Chest: Positive for: Clear to Auscultation, Good Air Exchange. Negative for: Respiratory Distress, Accessory Muscle Use, Rales, Rhonchi Cardiovascular: Positive for: Regular Rate and Rhythm, Normal S1, S2, Peripheal Pulses Present. Negative for: Murmurs, Tachycardic Abdomen: Positive for: Normal Bowel Sounds. Negative for: Tenderness, Distention Psychiatric: Positive for: Alert - Medications Active Medications: Active Medications Generic Name Dose Route Start Last Admin Trade Name Freq PRN Reason Stop Dose Admin Atorvastatin Calcium 40 mg 01/23/19 22:00 01/23/19 21:45 Lipitor PO 40 mg HS ELMER Administration Darunavir 800 mg 01/23/19 22:00 01/23/19 21:51 Prezista PO 800 mg HS ELMER Administration Protocol Diphenhydramine HCl 25 mg 01/23/19 09:00 01/24/19 00:08 Benadryl IVP 25 mg Q8 ELMER Administration Duloxetine HCl 60 mg 01/24/19 09:00 Cymbalta PO DAILY ELMER Emtricitabine/Tenofovir 1 tab 01/23/19 22:00 01/23/19 21:53 Truvada 200 Mg-300 Mg PO 1 tab HS ELMER Administration Protocol Enoxaparin Sodium 40 mg 01/24/19 09:00 Lovenox SC DAILY ELMER Protocol Famotidine 20 mg 01/23/19 09:00 01/23/19 20:14 Pepcid IVP 20 mg Q12 ELMER Administration Fentanyl Citrate 2,500 mcg/ 250 mls @ 10.7 mls/hr 01/23/19 05:15 01/24/19 00:21 Dextrose IV 3 mcg/kg/hr .[id number] ELMER 16.06 mls/hr Administration Protocol 2 MCG/KG/HR Ampicillin Sodium/Sulbactam 100 mls @ 100 mls/hr 01/23/19 10:00 01/24/19 04:16 Sodium 1.5 gm/ Sodium Chloride IVPB 100 mls/hr Q6 ELMER Administration Protocol Vancomycin HCl 1 gm/ Sodium 250 mls @ 166.667 mls/hr 01/23/19 09:00 01/23/19 20:08 Chloride IVPB 166.667 mls/hr Q12 ELMER Administration Protocol Potassium Chloride/Sodium Chloride 1,000 mls @ 100 mls/hr 01/23/19 08:45 01/24/19 00:31 Potassium Chl 20 Meq In Ns IV 01/24/19 08:36 100 mls/hr .Q10H [facility] Administration Clindamycin Phosphate 600 mg in 50 mls @ 100 mls/hr 01/23/19 17:00 01/24/19 00:04 Cleocin 600mg/50ml Ns IVPB 100 mls/hr Q8 ELMER Administration Protocol Propofol 1,000 mg in 100 mls @ 1.674 mls/hr 01/23/19 21:45 01/24/19 00:14 Diprivan IV 01/24/19 21:33 10 mcg/kg/min .Q24H ELMER 3.348 mls/hr Titration Protocol 5 MCG/KG/MIN Methylprednisolone 60 mg 01/23/19 09:00 01/24/19 00:29 Solu-Medrol IV 60 mg Q8 ELMER Administration Nicotine 1 patch 01/23/19 12:30 01/23/19 14:06 Nicoderm Cq TD 1 patch DAILY ELMER Administration Quetiapine Fumarate 100 mg 01/23/19 22:00 01/23/19 21:52 Seroquel PO 100 mg HS ELMER Administration Ritonavir 100 mg 01/23/19 22:00 01/23/19 21:51 Norvir PO 100 mg HS ELMER Administration Protocol - Patient Studies Lab Studies: Lab Studies 01/24/19 01/24/19 01/24/19 Range/Units 05:05 04:50 04:50 WBC (4.8-10.8) K/uL RBC (3.80-5.20) Mil/uL Hgb (12.0-16.0) g/dL Hct (34.0-47.0) % MCV (81.0-99.0) fl MCH (27.0-31.0) pg MCHC (33.0-37.0) g/dL RDW (11.5-14.5) % Plt Count (130-400) K/uL MPV (7.2-11.7) fl Neut % (Auto) (50.0-75.0) % Lymph % (Auto) (20.0-40.0) % [place] % (Auto) (0.0-10.0) % Eos % (Auto) (0.0-4.0) % Baso % (Auto) (0.0-2.0) % Neut # (Auto) (1.8-7.0) K/uL Lymph # (Auto) (1.0-4.3) K/uL [place] # (Auto) (0.0-0.8) K/uL Eos # (Auto) (0.0-0.7) K/uL Baso # (Auto) (0.0-0.2) K/uL PT 11.2 (9.8-13.1) Seconds INR 1.0 APTT 26.2 (25.6-37.1) Seconds pCO2 40 (35-45) mm/Hg pO2 174 H (80-100) mm/Hg HCO3 24.9 (21-28) mmol/L ABG pH 7.40 (7.35-7.45) ABG Total CO2 26.0 (22-28) mmol/L ABG O2 Saturation 97.2 (95-98) % ABG O2 Content 15.8 (15-23) ML/dL ABG Base Excess 0 (-2.0-3.0) mmol/L ABG Hemoglobin 11.4 L (11.7-17.4) g/dL ABG Carboxyhemoglobin 0 L (0.5-1.5) % POC ABG HHb (Measured) 2.8 (0.0-5.0) % ABG Methemoglobin 0.7 (0.0-3.0) % ABG O2 Capacity 16.3 (16-24) mL/dL Pancho Test Yes A-a O2 Difference 61.0 mm/Hg Hgb O2 Saturation 96.5 (95.0-98.0) % Vent Mode A/c Mechanical Rate 12 FiO2 40.0 % Tidal Volume 400 PEEP 5 Sodium 136 (132-148) mmol/l Potassium 4.6 (3.6-5.0) MMOL/L Chloride 106 (98-107) mmol/L Carbon Dioxide 25 (22-30) mmol/L Anion Gap 10 (10-20) BUN 17 (7-17) mg/dl Creatinine 0.6 L (0.7-1.2) mg/dl Est GFR ( Amer) > 60 Est GFR (Non-Af Amer) > 60 POC Glucose (mg/dL) (65-110) mg/dL Random Glucose 175 H (65-105) mg/dL Calcium 8.9 (8.4-10.2) mg/dL Total Bilirubin 0.3 (0.2-1.3) mg/dl AST 30 (14-36) U/L ALT 28 (9-52) U/L Alkaline Phosphatase 67 (38-126) U/L Total Protein 6.8 (6.3-8.2) G/DL Albumin 3.8 (3.5-5.0) g/dL Globulin 3.0 (2.2-3.9) gm/dL Albumin/Globulin Ratio 1.2 (1.0-2.1) 01/24/19 01/23/19 01/23/19 Range/Units 04:50 11:13 10:17 WBC 9.5 (4.8-10.8) K/uL RBC 3.59 L (3.80-5.20) Mil/uL Hgb 11.8 L D (12.0-16.0) g/dL Hct 36.0 (34.0-47.0) % MCV 100.4 H D (81.0-99.0) fl MCH 33.0 H (27.0-31.0) pg MCHC 32.8 L (33.0-37.0) g/dL RDW 15.7 H (11.5-14.5) % Plt Count 261 (130-400) K/uL MPV 8.6 (7.2-11.7) fl Neut % (Auto) 90.4 H (50.0-75.0) % Lymph % (Auto) 6.4 L (20.0-40.0) % [place] % (Auto) 3.1 (0.0-10.0) % Eos % (Auto) 0.0 (0.0-4.0) % Baso % (Auto) 0.1 (0.0-2.0) % Neut # (Auto) 8.5 H (1.8-7.0) K/uL Lymph # (Auto) 0.6 L (1.0-4.3) K/uL [place] # (Auto) 0.3 (0.0-0.8) K/uL Eos # (Auto) 0.0 (0.0-0.7) K/uL Baso # (Auto) 0.0 (0.0-0.2) K/uL PT (9.8-13.1) Seconds INR APTT (25.6-37.1) Seconds pCO2 46 H (35-45) mm/Hg pO2 227 H (80-100) mm/Hg HCO3 24.5 (21-28) mmol/L ABG pH 7.35 (7.35-7.45) ABG Total CO2 26.8 (22-28) mmol/L ABG O2 Saturation 97.5 (95-98) % ABG O2 Content 17.3 (15-23) ML/dL ABG Base Excess -0.6 (-2.0-3.0) mmol/L ABG Hemoglobin 12.3 (11.7-17.4) g/dL ABG Carboxyhemoglobin 0 L (0.5-1.5) % POC ABG HHb (Measured) 2.5 (0.0-5.0) % ABG Methemoglobin 0.7 (0.0-3.0) % ABG O2 Capacity 17.7 (16-24) mL/dL Pancho Test Yes A-a O2 Difference 72.0 mm/Hg Hgb O2 Saturation 96.8 (95.0-98.0) % Vent Mode Prvc/ac Mechanical Rate 12 FiO2 50.0 % Tidal Volume 400 PEEP 5 Sodium (132-148) mmol/l Potassium (3.6-5.0) MMOL/L Chloride (98-107) mmol/L Carbon Dioxide (22-30) mmol/L Anion Gap (10-20) BUN (7-17) mg/dl Creatinine (0.7-1.2) mg/dl Est GFR ( Amer) Est GFR (Non-Af Amer) POC Glucose (mg/dL) 190 H (65-110) mg/dL Random Glucose (65-105) mg/dL Calcium (8.4-10.2) mg/dL Total Bilirubin (0.2-1.3) mg/dl AST (14-36) U/L ALT (9-52) U/L Alkaline Phosphatase (38-126) U/L Total Protein (6.3-8.2) G/DL Albumin (3.5-5.0) g/dL Globulin (2.2-3.9) gm/dL Albumin/Globulin Ratio (1.0-2.1) Laboratory Results - last 24 hr 01/23/19 01/23/19 01/24/19 10:17 11:13 04:50 WBC 9.5 RBC 3.59 L Hgb 11.8 L D Hct 36.0 MCV 100.4 H D MCH 33.0 H MCHC 32.8 L RDW 15.7 H Plt Count 261 MPV 8.6 Neut % (Auto) 90.4 H Lymph % (Auto) 6.4 L [place] % (Auto) 3.1 Eos % (Auto) 0.0 Baso % (Auto) 0.1 Neut # (Auto) 8.5 H Lymph # (Auto) 0.6 L [place] # (Auto) 0.3 Eos # (Auto) 0.0 Baso # (Auto) 0.0 PT INR APTT pCO2 46 H pO2 227 H HCO3 24.5 ABG pH 7.35 ABG Total CO2 26.8 ABG O2 Saturation 97.5 ABG O2 Content 17.3 ABG Base Excess -0.6 ABG Hemoglobin 12.3 ABG Carboxyhemoglobin 0 L POC ABG HHb (Measured) 2.5 ABG Methemoglobin 0.7 ABG O2 Capacity 17.7 Pancho Test Yes A-a O2 Difference 72.0 Hgb O2 Saturation 96.8 Vent Mode Prvc/ac Mechanical Rate 12 FiO2 50.0 Tidal Volume 400 PEEP 5 Sodium Potassium Chloride Carbon Dioxide Anion Gap BUN Creatinine Est GFR ( Amer) Est GFR (Non-Af Amer) POC Glucose (mg/dL) 190 H Random Glucose Calcium Total Bilirubin AST ALT Alkaline Phosphatase Total Protein Albumin Globulin Albumin/Globulin Ratio 01/24/19 01/24/19 01/24/19 04:50 04:50 05:05 WBC RBC Hgb Hct MCV MCH MCHC RDW Plt Count MPV Neut % (Auto) Lymph % (Auto) [place] % (Auto) Eos % (Auto) Baso % (Auto) Neut # (Auto) Lymph # (Auto) [place] # (Auto) Eos # (Auto) Baso # (Auto) PT 11.2 INR 1.0 APTT 26.2 pCO2 40 pO2 174 H HCO3 24.9 ABG pH 7.40 ABG Total CO2 26.0 ABG O2 Saturation 97.2 ABG O2 Content 15.8 ABG Base Excess 0 ABG Hemoglobin 11.4 L ABG Carboxyhemoglobin 0 L POC ABG HHb (Measured) 2.8 ABG Methemoglobin 0.7 ABG O2 Capacity 16.3 Pancho Test Yes A-a O2 Difference 61.0 Hgb O2 Saturation 96.5 Vent Mode A/c Mechanical Rate 12 FiO2 40.0 Tidal Volume 400 PEEP 5 Sodium 136 Potassium 4.6 Chloride 106 Carbon Dioxide 25 Anion Gap 10 BUN 17 Creatinine 0.6 L Est GFR ( Amer) > 60 Est GFR (Non-Af Amer) > 60 POC Glucose (mg/dL) Random Glucose 175 H Calcium 8.9 Total Bilirubin 0.3 AST 30 ALT 28 Alkaline Phosphatase 67 Total Protein 6.8 Albumin 3.8 Globulin 3.0 Albumin/Globulin Ratio 1.2 Radiology Impressions: Radiology Impressions Chest X-Ray 01/23/19 00:49 IMPRESSION: No acute consolidation Soft Tissue Neck CT 01/23/19 00:55 IMPRESSION: There are nonspecific soft tissue swelling-edematous appearing changes seen in the region of the right palatine tonsil extending superiorly for short distance into the right posterior nasopharyngeal soft tissues the and inferiorly into the right retropharyngeal soft tissues including parapharyngeal. The changes result in compressive effects on the airway which is displaced to the right-side. There is also asymmetry of the vallecula and pyriform sinus on the right which are compressed.. Edema appears to cross midline at the level of the lingual tonsils and. Rule out angioedema. A diffuse cellulitis wall with retropharyngeal involvement cannot be excluded. Clinical correlation recommended. There is also slight medial position of the right true vocal cord possibly due to edematous changes as well. Questionable left-sided sublingual-submandibular edema. Chest X-Ray 01/23/19 05:10 IMPRESSION: Interval placement ETT as described. Low lung volumes common crowded bronchovascular markings and mild bibasilar atelectasis. Chest X-Ray 01/23/19 12:39 IMPRESSION: ETT and NGT as above. No acute consolidation. Chest X-Ray 01/24/19 06:00 IMPRESSION: Stable endotracheal intubation as well as orogastric tube placement. No acute cardiopulmonary disease in the interval. Review of Systems - Review of Systems Systems not reviewed;Unavailable: Intubated Critical Care Progress Note - Ventilator Checklist Head of Bed 30 Degrees: Yes Daily Sedation Vacation: Yes Daily Assessment of Readiness to Wean: Yes Daily Spontaneous Breathing Trial: Yes PUD Prophalyxis: Yes DVT Prophylaxis: Yes Oral Care with Chlorhexidine Gluconate {CHG}: Yes - Extremities/Vascular Does the Patient have a Central Venous Catheter?: No Does the Patient need a Central Venous Catheter?: No - Nutrition Nutrition: Nutrition Category Date Time Status NPO Diet [DIET] Diets 01/23/19 Breakfast Active Assessment/Plan (1) Retropharyngeal abscess Current Visit: Yes Status: Acute Priority: High Comment: Patient currently orally intubated for airway protection, patient with facial swelling inability to handle respiratory secretion on presentation Scheduled for repeat next CT scan today ENT and ID consultation appreciated Continue broad-spectrum antibiotic coverage with IV vancomycin, Unasyn and clindamycin Also JESSICA inhibitor discontinued (2) Systolic heart failure Current Visit: Yes Status: Chronic Priority: High (3) HIV infection, asymptomatic Current Visit: Yes Status: Chronic Priority: High Comment: Patient with history of HIV positive, Last CD4 count 864 and Viral load <20 on Sep 2018 Continue HAART (4) Cardiomyopathy Current Visit: Yes Status: Chronic Priority: Medium Comment: Nonischemic cardiomyopathy, possibly related to HIV status No evidence of fluid overload on exam Continue home medications Lipitor (5) Essential (primary) hypertension Current Visit: No Status: Chronic Priority: Medium
[2019-01-24 08:20] LABS: LYMPHOCYTE 8 % (20-50); MONOCYTE 3 % (0-10); NEUTROPHIL 89 % (42-75); PLATELET ESTIMATE NORMAL (NORMAL); TOTAL CELLS COUNTED 100
[2019-01-24 08:21] LABS: ANISOCYTOSIS SLIGHT; LARGE PLATELETS PRESENT; OVALOCYTES MODERATE
--- NOTE | 2019-01-24 09:29 | CP.PCM.PN ---
<Govind Fernando - Last Filed: 01/24/19 10:58> Subjective - Date & Time of Evaluation Date of Evaluation: 01/24/19 Time of Evaluation: 08:50 - Subjective Subjective: Seen at bedside. Intubated. No acute events overnight. Sedated and responsive to verbal commands opening eyes. Afebrile. No acute changes in urinatio or stools. Objective - Vital Signs/Intake and Output Vital Signs (last 24 hours): Temp Pulse Resp BP Pulse Ox 98.1 F 50 L 12 116/56 L 100 01/24/19 08:00 01/24/19 09:00 01/24/19 09:00 01/24/19 09:00 01/24/19 09:00 Intake and Output: 01/24/19 01/24/19 06:59 18:59 Intake Total 2078 20 Output Total 1000 Balance 1078 20 - Medications Medications: Current Medications Atorvastatin Calcium (Lipitor) 40 mg PO HS ELMER Last Admin: 01/23/19 21:45 Dose: 40 mg Darunavir (Prezista) 800 mg PO HS ELMER; Protocol Last Admin: 01/23/19 21:51 Dose: 800 mg Diphenhydramine HCl (Benadryl) 25 mg IVP Q8 ELMER Last Admin: 01/24/19 00:08 Dose: 25 mg Duloxetine HCl (Cymbalta) 60 mg PO DAILY ELMER Emtricitabine/Tenofovir (Truvada 200 Mg-300 Mg) 1 tab PO HS ELMER; Protocol Last Admin: 01/23/19 21:53 Dose: 1 tab Enoxaparin Sodium (Lovenox) 40 mg SC DAILY ELMER; Protocol Famotidine (Pepcid) 20 mg IVP Q12 ELMER Last Admin: 01/24/19 09:27 Dose: 20 mg Fentanyl Citrate 2,500 mcg/ (Dextrose) 250 mls @ 10.7 mls/hr IV .[id number] ELMER; Protocol Last Titration: 01/24/19 07:42 Dose: 2.5 mcg/kg/hr, 13.38 mls/hr Ampicillin Sodium/Sulbactam (Sodium 1.5 gm/ Sodium Chloride) 100 mls @ 100 mls/hr IVPB Q6 ELMER; Protocol Last Admin: 01/24/19 04:16 Dose: 100 mls/hr Vancomycin HCl 1 gm/ Sodium (Chloride) 250 mls @ 166.667 mls/hr IVPB Q12 ELMER; Protocol Last Admin: 01/23/19 20:08 Dose: 166.667 mls/hr Clindamycin Phosphate (Cleocin 600mg/50ml Ns) 600 mg in 50 mls @ 100 mls/hr IVPB Q8 ELMER; Protocol Last Admin: 01/24/19 00:04 Dose: 100 mls/hr Propofol (Diprivan) 1,000 mg in 100 mls @ 1.674 mls/hr IV .Q24H ELMER; Protocol Stop: 01/24/19 21:33 Last Titration: 01/24/19 00:14 Dose: 10 mcg/kg/min, 3.348 mls/hr Methylprednisolone (Solu-Medrol) 60 mg IV Q8 ELMER Last Admin: 01/24/19 00:29 Dose: 60 mg Nicotine (Nicoderm Cq) 1 patch TD DAILY [facility]MER Last Admin: 01/23/19 14:06 Dose: 1 patch Quetiapine Fumarate (Seroquel) 100 mg PO HS ELMER Last Admin: 01/23/19 21:52 Dose: 100 mg Ritonavir (Norvir) 100 mg PO HS ELMER; Protocol Last Admin: 01/23/19 21:51 Dose: 100 mg - Labs Labs: 01/24/19 04:50 01/24/19 04:50 PT 11.2 Seconds (9.8-13.1) 01/24/19 04:50 INR 1.0 01/24/19 04:50 APTT 26.2 Seconds (25.6-37.1) 01/24/19 04:50 - Constitutional Appears: Non-toxic, Other (Intubated.) - Head Exam Head Exam: ATRAUMATIC - Eye Exam Eye Exam: EOMI - ENT Exam ENT Exam: Mucous Membranes Moist - Respiratory Exam Respiratory Exam: Clear to Ausculation Bilateral Additional comments: Intubated. - Cardiovascular Exam Cardiovascular Exam: REGULAR RHYTHM, +S1, +S2. absent: Gallop - GI/Abdominal Exam GI & Abdominal Exam: Soft, Normal Bowel Sounds - Extremities Exam Extremities Exam: Normal Capillary Refill. absent: Pedal Edema - Neurological Exam Additional comments: Sedated but responds to verbal command opening her eyes. - Skin Skin Exam: Warm Assessment and Plan - Assessment and Plan (Free Text) Assessment: -Retropharingeal edema. Celullitis vs angioedema. Less likely abscess Acute CT: There are nonspecific soft tissue swelling-edematous appearing changes seen in the region of the right palatine tonsil extending superiorly for short distance into the right posterior nasopharyngeal soft tissues the and inferiorly into the right retropharyngeal soft tissues including parapharyngeal. The changes result in compressive effects on the airway which is displaced to the right-side. There is also asymmetry of the vallecula and pyriform sinus on the right which are compressed. Please see full report ID recs appreciated: Started on Clinda IV day 2 C/w Vanco and Unasyn IV day 2 ENT consulted: Recs appreciated F/U repeat CT neck today Intubated and sedated as per ICU. Management expectant pending CT results DC ACEi Vent settings as per ICU -HIV without AIDS Clinic notes reviewed Last CD4/Viral load 09/2018: 864/<20 Neg Hep C Ab, GC/Chl and RPR c/w home meds -Systolic congestive heart failure, unspecified congestive heart failure chronicity c/w same medications Last Echo 2017 EF 35 % Last stress test Lexicon 2017. Recently seen by Cardio as outpatient -Hypertension controlled with lisinopril 2,5 mg daily. -Pulmonary emphysema, unspecified emphysema type chronic, controlled monitor VS -Hx of TIA Hold aggrenox for now -DVT prophylaxis Lovenox 40 mg daily <Muriel Domingo - Last Filed: 01/24/19 14:44> Objective - Vital Signs/Intake and Output Vital Signs (last 24 hours): Temp Pulse Resp BP Pulse Ox 98.8 F 53 L 12 143/62 100 01/24/19 12:00 01/24/19 14:00 01/24/19 14:00 01/24/19 14:00 01/24/19 14:00 Intake and Output: 01/24/19 01/24/19 06:59 18:59 Intake Total 2078 540 Output Total 1000 Balance 1078 540 - Medications Medications: Current Medications Artificial Tears (Artificial Tears) 2 drop OU Q4 PRN PRN Reason: Dry eyes Last Admin: 01/24/19 10:59 Dose: 2 d Atorvastatin Calcium (Lipitor) 40 mg PO HS ELMER Last Admin: 01/23/19 21:45 Dose: 40 mg Darunavir (Prezista) 800 mg PO HS ELMER; Protocol Last Admin: 01/23/19 21:51 Dose: 800 mg Diphenhydramine HCl (Benadryl) 25 mg IVP Q8 [facility] Last Admin: 01/24/19 09:29 Dose: 25 mg Duloxetine HCl (Cymbalta) 60 mg PO DAILY ELMER Emtricitabine/Tenofovir (Truvada 200 Mg-300 Mg) 1 tab PO HS ELMER; Protocol Last Admin: 01/23/19 21:53 Dose: 1 tab Enoxaparin Sodium (Lovenox) 40 mg SC DAILY ELMER; Protocol Last Admin: 01/24/19 09:30 Dose: 40 mg Famotidine (Pepcid) 20 mg IVP Q12 [facility]MER Last Admin: 01/24/19 09:27 Dose: 20 mg Fentanyl Citrate 2,500 mcg/ (Dextrose) 250 mls @ 10.7 mls/hr IV .[id number] [facility]; Protocol Last Titration: 01/24/19 07:42 Dose: 2.5 mcg/kg/hr, 13.38 mls/hr Ampicillin Sodium/Sulbactam (Sodium 1.5 gm/ Sodium Chloride) 100 mls @ 100 mls/hr IVPB Q6 [facility]MER; Protocol Last Admin: 01/24/19 10:34 Dose: 100 mls/hr Vancomycin HCl 1 gm/ Sodium (Chloride) 250 mls @ 166.667 mls/hr IVPB Q12 [facility]; Protocol Last Admin: 01/24/19 12:18 Dose: 166.667 mls/hr Clindamycin Phosphate (Cleocin 600mg/50ml Ns) 600 mg in 50 mls @ 100 mls/hr IVPB Q8 [facility]MER; Protocol Last Admin: 01/24/19 09:34 Dose: 100 mls/hr Propofol (Diprivan) 1,000 mg in 100 mls @ 1.674 mls/hr IV .Q24H [facility]; Protocol Stop: 01/24/19 21:33 Last Titration: 01/24/19 00:14 Dose: 10 mcg/kg/min, 3.348 mls/hr Methylprednisolone (Solu-Medrol) 60 mg IV Q8 [facility] Last Admin: 01/24/19 11:18 Dose: 60 mg Nicotine (Nicoderm Cq) 1 patch TD DAILY [facility] Last Admin: 01/24/19 09:30 Dose: 1 patch Quetiapine Fumarate (Seroquel) 100 mg PO HS ELMER Last Admin: 01/23/19 21:52 Dose: 100 mg Ritonavir (Norvir) 100 mg PO HS ELMER; Protocol Last Admin: 01/23/19 21:51 Dose: 100 mg - Labs Labs: 01/24/19 04:50 01/24/19 04:50 PT 11.2 Seconds (9.8-13.1) 01/24/19 04:50 INR 1.0 01/24/19 04:50 APTT 26.2 Seconds (25.6-37.1) 01/24/19 04:50 Attending/Attestation - Attestation I have personally seen and examined this patient.: Yes I have fully participated in the care of the patient.: Yes I have reviewed all pertinent clinical information, including history, physical exam and plan: Yes Notes (Text): Pharyngeal/Tonsillar and Retropharyngeal Swelling r/o Abscess -Pt was intubated for airway protection , was unable to swallow saliva - awake , alert , and able to communicate by writing - remains intubated on Vent -Cont IV Vanco , Unasyn and Clinda - ENT consult - Dr Gonsalves - rec to add IV Steroids- cont IV Solumedrol 60 mg q 8 - ID consulted- Dr Cowan - will d/c JESSICA inhibitor in case it is contributing to edema -rpt CT scan of the Neck :Likely stable parapharyngeal edema without abscess evident. Artifact from dental hardware as well as endotracheal and nasogastric tubes limit evaluation somewhat. Trace upper retropharyngeal soft tissue edema is not completely exclude but is minimal if present. Limited lower facial subcutaneous edema again evident suggestive of cellulitis. Chronic CHF systolic dysfunction with EF 35% - Hold JESSICA inhibitor as may cause angioedema HIV asymptomatic - last CD4 count 800s with undetectable viral load - cont HAART Hx of TIA - hold Aggrenox for now as pt may need to undergo surgical drainage Depression - cont Cymbalta and Seroquel DVT proph - SCD for now
[2019-01-24] MEDS: Enoxaparin 40 mg Syringe SC SCH (09:30)
[2019-01-24] MEDS ORDERED: Artificial Tears Opht Soln OU PRN (10:00)
[2019-01-24] MEDS ORDERED: Iohexol 300 100 ML IJ ONE (11:18)
[2019-01-24] MEDS ORDERED: Sodium Chloride 0.9% 50 ML IV ONE (11:19)
--- NOTE | 2019-01-24 12:22 | CT ---
Date of service: 01/24/2019 PROCEDURE: CT NECK WITH CONTRAST HISTORY: Retropharingeal edema COMPARISON: None available. TECHNIQUE: CT of the neck with intravenous contrast. Coronal and sagittal reformats generated. Intravenous contrast dose: Radiation dose: Total exam DLP = 282.42 mGy-cm. This CT exam was performed using one or more of the following dose reduction techniques: Automated exposure control, adjustment of the mA and/or kV according to patient size, and/or use of iterative reconstruction technique. FINDINGS: Repeat CT of the neck with contrast remarkable for interval endotracheal intubation with right nasogastric tube insertion with the tip of the endotracheal tube terminating in the lower trachea well above the grady. Nasogastric tube termination is not identified but is identified within the esophagus at the right side of the pharynx. Prior marked right-sided parapharyngeal edematous soft tissue changes are obscured by extensive dental hardware related artifacts as well as the aforementioned tubes with limited persistent edema felt to be present. Trace upper retropharyngeal edema is not completely excluded. Reticular changes in the subcutaneous fat of the submandibular skin and superficial soft tissues is reiterated and is not significantly changed in the interval. GLANDS: Parotid and submandibular glands unremarkable. Normal size thyroid gland, without nodule. LYMPH NODES: No significant lymphadenopathy appreciable denopathy. CERVICAL SPINE: No fracture or focal lesion. VASCULAR STRUCTURES: Unremarkable. OTHER FINDINGS: Biapical fibrotic changes reiterated including limited bilateral emphysema. IMPRESSION: Likely stable parapharyngeal edema without abscess evident. Artifact from dental hardware as well as endotracheal and nasogastric tubes limit evaluation somewhat. Trace upper retropharyngeal soft tissue edema is not completely exclude but is minimal if present. Limited lower facial subcutaneous edema again evident suggestive of cellulitis.
[2019-01-24] MEDS: Propofol 10 mg/ml 1,000 MG/100 ML VIAL IV SCH ×2 (16:56→20:39)
[2019-01-24] MEDS: Emtricitabine-Tenofovir 200 mg-300 mg Tab PO SCH (21:21)
[2019-01-25] MEDS: Clindamycin 600mg/50ml NS 600 MG/50 ML BAG IVPB SCH ×3 (00:12→16:09)
[2019-01-25] MEDS: DiphenhydrAMINE 50 mg/ml Inj IVP SCH ×3 (00:40→16:09)
[2019-01-25 05:19] LABS: ABG ALLEN TEST YES; ARTERIAL BLOOD GAS HCO3 28.5 mmol/L (21-28); ARTERIAL BLOOD GAS HEMOGLOBIN 9.8 g/dL (11.7-17.4); ARTERIAL BLOOD GAS O2 CAPACITY 14.2 mL/dL (16-24); ARTERIAL BLOOD GAS O2 CONTENT 13.9 ML/dL (15-23); ARTERIAL BLOOD GAS O2 SAT 97.6 % (95-98); ARTERIAL BLOOD GAS PCO2 23 mm/Hg (35-45); ARTERIAL BLOOD GAS PH 7.64 (7.35-7.45); ARTERIAL BLOOD GAS PO2 195 mm/Hg (80-100); ARTERIAL BLOOD GAS TCO2 25.5 mmol/L (22-28)
[2019-01-25 05:20] LABS: MEAN CELL VOLUME 100.1 fl (81.0-99.0); MEAN CORPUSCULAR HEMOGLOBIN 32.6 pg (27.0-31.0); MEAN CORPUSCULAR HGB CONC 32.6 g/dL (33.0-37.0); RBC 3.37 Mil/uL (3.80-5.20); RED CELL DISTRIBUTION WIDTH 15.1 % (11.5-14.5); WHITE BLOOD COUNT 8.7 K/uL (4.8-10.8)
[2019-01-25 05:56] LABS: BLOOD UREA NITROGEN 21 mg/dl (7-17); CALCIUM 9.1 mg/dL (8.4-10.2); GFR NON-AFRICAN AMERICAN > 60
[2019-01-25] MEDS: Enoxaparin 40 mg Syringe SC SCH (08:27)
--- NOTE | 2019-01-25 09:15 | RAD ---
Date of service: 01/25/2019 HISTORY: ETT placement COMPARISON: 01/24/2019 at 5:04 a.m.l TECHNIQUE: 1 view obtained. FINDINGS: LUNGS: No active pulmonary disease. PLEURA: No significant pleural effusion identified, no pneumothorax apparent. CARDIOVASCULAR: No aortic atherosclerotic calcification present. Normal cardiac size. ET tube tip approximately 6.3 cm above the tracheal grady. Nasogastric tube extends to the left upper quadrant of the abdomen. OSSEOUS STRUCTURES: No significant abnormalities. VISUALIZED UPPER ABDOMEN: Normal. OTHER FINDINGS: None. IMPRESSION: ET tube positioned with its tip 6.3 cm above the tracheal grady.
--- NOTE | 2019-01-25 09:29 | CP.PCM.PN ---
<Govind Fernando - Last Filed: 01/25/19 10:36> Subjective - Date & Time of Evaluation Date of Evaluation: 01/25/19 Time of Evaluation: 08:30 - Subjective Subjective: Seen on ICU ventilated and sedated. Alert at times as per nurse. Stable. No events overnight. No BM yesterday. Possible balance. Afebrile. Objective - Vital Signs/Intake and Output Vital Signs (last 24 hours): Temp Pulse Resp BP Pulse Ox 99.7 F H 56 L 12 106/56 L 98 01/25/19 08:00 01/25/19 08:00 01/25/19 08:00 01/25/19 08:00 01/25/19 08:00 Intake and Output: 01/25/19 01/25/19 06:59 18:59 Intake Total 995 Balance 995 - Medications Medications: Current Medications Artificial Tears (Artificial Tears) 2 drop OU Q4 PRN PRN Reason: Dry eyes Last Admin: 01/24/19 10:59 Dose: 2 d Atorvastatin Calcium (Lipitor) 40 mg PO HS [facility] Last Admin: 01/24/19 21:12 Dose: 40 mg Darunavir (Prezista) 800 mg PO HS [facility]; Protocol Last Admin: 01/24/19 21:25 Dose: 800 mg Diphenhydramine HCl (Benadryl) 25 mg IVP Q8 [facility] Last Admin: 01/25/19 08:33 Dose: 25 mg Duloxetine HCl (Cymbalta) 60 mg PO DAILY [facility] Last Admin: 01/25/19 08:27 Dose: 60 mg Emtricitabine/Tenofovir (Truvada 200 Mg-300 Mg) 1 tab PO HS [facility]; Protocol Last Admin: 01/24/19 21:21 Dose: 1 tab Enoxaparin Sodium (Lovenox) 40 mg SC DAILY [facility]; Protocol Last Admin: 01/25/19 08:27 Dose: 40 mg Famotidine (Pepcid) 20 mg IVP Q12 [facility] Last Admin: 01/25/19 08:33 Dose: 20 mg Fentanyl Citrate 2,500 mcg/ (Dextrose) 250 mls @ 10.7 mls/hr IV .[id number] [facility]; Protocol Last Admin: 01/24/19 17:53 Dose: 2.5 mcg/kg/hr, 13.38 mls/hr Ampicillin Sodium/Sulbactam (Sodium 1.5 gm/ Sodium Chloride) 100 mls @ 100 mls/hr IVPB Q6 [facility]; Protocol Last Admin: 01/25/19 04:41 Dose: 100 mls/hr Vancomycin HCl 1 gm/ Sodium (Chloride) 250 mls @ 166.667 mls/hr IVPB Q12 [facility]; Protocol Last Admin: 01/24/19 20:13 Dose: 166.667 mls/hr Clindamycin Phosphate (Cleocin 600mg/50ml Ns) 600 mg in 50 mls @ 100 mls/hr IVPB Q8 [facility]; Protocol Last Admin: 01/25/19 08:27 Dose: 100 mls/hr Propofol (Diprivan) 1,000 mg in 100 mls @ 3.361 mls/hr IV .Q24H [facility]; Protocol Stop: 01/25/19 19:48 Last Admin: 01/24/19 20:39 Dose: 10 mcg/kg/min, 3.361 mls/hr Methylprednisolone (Solu-Medrol) 60 mg IV Q8 [facility] Last Admin: 01/25/19 08:28 Dose: 60 mg Nicotine (Nicoderm Cq) 1 patch TD DAILY [facility] Last Admin: 01/25/19 08:28 Dose: 1 patch Quetiapine Fumarate (Seroquel) 100 mg PO HS [facility] Last Admin: 01/24/19 21:14 Dose: 100 mg Ritonavir (Norvir) 100 mg PO HS [facility]; Protocol Last Admin: 01/24/19 21:17 Dose: 100 mg - Labs Labs: 01/25/19 04:38 01/25/19 04:38 PT 11.2 Seconds (9.8-13.1) 01/24/19 04:50 INR 1.0 01/24/19 04:50 APTT 26.2 Seconds (25.6-37.1) 01/24/19 04:50 - Constitutional Appears: Non-toxic, Other (Intubated/sedated) - Eye Exam Eye Exam: PERRL - ENT Exam ENT Exam: Mucous Membranes Moist - Respiratory Exam Respiratory Exam: Clear to Ausculation Bilateral, NORMAL BREATHING PATTERN - Cardiovascular Exam Cardiovascular Exam: Bradycardia, REGULAR RHYTHM, +S1, +S2. absent: Gallop - GI/Abdominal Exam GI & Abdominal Exam: Soft, Normal Bowel Sounds - Neurological Exam Additional comments: Intubated/sedated - Skin Skin Exam: Normal Color, Warm Assessment and Plan - Assessment and Plan (Free Text) Assessment: -Retropharingeal edema. Celullitis vs angioedema. Less likely abscess Acute Continues intubated/ventilated/sedated Responds to stimuli and alert at times. Repeat neck CT Yesterday no significant changes compared to initial. Please see full report ID recs appreciated: Clinda IV day 3 C/w Vanco and Unasyn IV day 3 ENT consulted: Recs appreciated Intubated and sedated as per ICU: Case discussed today with Dr Treviño. Plan is to wait for ENT recs regarding possible extubation trial today. C/w Solumedrol q8h -HIV without AIDS Clinic notes reviewed Last CD4/Viral load 09/2018: 864/<20 Neg Hep C Ab, GC/Chl and RPR c/w home meds -Systolic congestive heart failure, unspecified congestive heart failure chronicity c/w same medications Last Echo 2017 EF 35 % Last stress test Lexicon 2017. Recently seen by Cardio as outpatient -Hypertension controlled with lisinopril 2,5 mg daily. -Pulmonary emphysema, unspecified emphysema type chronic, controlled monitor VS -Hx of TIA Hold aggrenox for now -DVT prophylaxis Lovenox 40 mg daily <Muriel Domingo - Last Filed: 01/25/19 17:13> Objective - Vital Signs/Intake and Output Vital Signs (last 24 hours): Temp Pulse Resp BP Pulse Ox 99.3 F 54 L 12 129/70 100 01/25/19 16:00 01/25/19 16:00 01/25/19 16:00 01/25/19 16:00 01/25/19 16:00 Intake and Output: 01/25/19 01/25/19 06:59 18:59 Intake Total 995 1196 Balance 995 1196 - Medications Medications: Current Medications Acetaminophen (Tylenol 325mg Tab) 650 mg NG Q6 PRN PRN Reason: Fever >100.4 F Last Admin: 01/25/19 10:47 Dose: 650 mg Artificial Tears (Artificial Tears) 2 drop OU Q4 PRN PRN Reason: Dry eyes Last Admin: 01/24/19 10:59 Dose: 2 d Atorvastatin Calcium (Lipitor) 40 mg PO HS [facility] Last Admin: 01/24/19 21:12 Dose: 40 mg Darunavir (Prezista) 800 mg PO HS [facility]; Protocol Last Admin: 01/24/19 21:25 Dose: 800 mg Diphenhydramine HCl (Benadryl) 25 mg IVP Q8 [facility] Last Admin: 01/25/19 16:09 Dose: 25 mg Duloxetine HCl (Cymbalta) 60 mg PO DAILY [facility] Last Admin: 01/25/19 08:27 Dose: 60 mg Emtricitabine/Tenofovir (Truvada 200 Mg-300 Mg) 1 tab PO HS [facility]; Protocol Last Admin: 01/24/19 21:21 Dose: 1 tab Enoxaparin Sodium (Lovenox) 40 mg SC DAILY [facility]; Protocol Last Admin: 01/25/19 08:27 Dose: 40 mg Famotidine (Pepcid) 20 mg IVP Q12 [facility] Last Admin: 01/25/19 08:33 Dose: 20 mg Fentanyl Citrate 2,500 mcg/ (Dextrose) 250 mls @ 10.7 mls/hr IV .[id number] [facility]; Protocol Last Admin: 01/25/19 10:02 Dose: 2.5 mcg/kg/hr, 13.38 mls/hr Ampicillin Sodium/Sulbactam (Sodium 1.5 gm/ Sodium Chloride) 100 mls @ 100 mls/hr IVPB Q6 [facility]; Protocol Last Admin: 01/25/19 16:10 Dose: 100 mls/hr Vancomycin HCl 1 gm/ Sodium (Chloride) 250 mls @ 166.667 mls/hr IVPB Q12 [facility]; Protocol Last Admin: 01/25/19 10:02 Dose: 166.667 mls/hr Clindamycin Phosphate (Cleocin 600mg/50ml Ns) 600 mg in 50 mls @ 100 mls/hr IVPB Q8 [facility]; Protocol Last Admin: 01/25/19 16:09 Dose: 100 mls/hr Propofol (Diprivan) 1,000 mg in 100 mls @ 3.361 mls/hr IV .Q24H [facility]; Protocol Stop: 01/25/19 19:48 Last Admin: 01/24/19 20:39 Dose: 10 mcg/kg/min, 3.361 mls/hr Methylprednisolone (Solu-Medrol) 40 mg IVP Q12H [facility] Nicotine (Nicoderm Cq) 1 patch TD DAILY [facility] Last Admin: 01/25/19 08:28 Dose: 1 patch Quetiapine Fumarate (Seroquel) 100 mg PO HS [facility] Last Admin: 01/24/19 21:14 Dose: 100 mg Ritonavir (Norvir) 100 mg PO HS [facility]; Protocol Last Admin: 01/24/19 21:17 Dose: 100 mg - Labs Labs: 01/25/19 04:38 01/25/19 04:38 PT 11.2 Seconds (9.8-13.1) 01/24/19 04:50 INR 1.0 01/24/19 04:50 APTT 26.2 Seconds (25.6-37.1) 01/24/19 04:50 Attending/Attestation - Attestation I have personally seen and examined this patient.: Yes I have fully participated in the care of the patient.: Yes I have reviewed all pertinent clinical information, including history, physical exam and plan: Yes Notes (Text): Pharyngeal/Tonsillar and Retropharyngeal Swelling r/o Abscess -Pt was intubated for airway protection , she came with neck swelling and was unable to swallow saliva - had dental works done in the [facility] 2 week prior to admission accdg to a pt's ssister who visited today - sedated - remains intubated on Vent -Cont IV Vanco , Unasyn and Clinda - ENT consult - Dr Gonsalves - rec to add IV Steroids- cont IV Solumedrol - slowly taper - ID consulted- Dr Cowan - will d/c JESSICA inhibitor in case it is contributing to edema -rpt CT scan of the Neck :Likely stable parapharyngeal edema without abscess evident. Artifact from dental hardware as well as endotracheal and nasogastric tubes limit evaluation somewhat. Trace upper retropharyngeal soft tissue edema is not completely exclude but is minimal if present. Limited lower facial subcutaneous edema again evident suggestive of cellulitis. Chronic CHF systolic dysfunction with EF 35% - Hold JESSICA inhibitor as may cause angioedema - no BB due to bradycardia HIV asymptomatic - last CD4 count 800s with undetectable viral load - cont HAART Hx of TIA - restart Aggrenox if no plan for any surgical intervention Depression - cont Cymbalta and Seroquel DVT proph -Lovenox 01/25/19 17:09 01/25/19 17:10
[2019-01-25] MEDS: Fentanyl Citrate 2,500 MCG in Dextrose 5% In Water 200 ML IV SCH (10:02)
[2019-01-25] MEDS ORDERED: MethylPREDNISolone 40 mg Vial IVP SCH (10:30)
[2019-01-25] MEDS ORDERED: methylPREDNISolone 40 MG in Sodium Chloride 0.9% 50 ML IVPB SCH (10:30)
--- NOTE | 2019-01-25 15:59 | PN ---
DATE: 01/25/2019 CRITICAL CARE PROGRESS NOTE LOCATION: The patient in ICU, bed 426. TIME SPENT: 35 minutes. SUBJECTIVE: The patient is seen, evaluated at the bedside. Past medical, surgical, family and social history reviewed. Case was discussed in multidisciplinary ICU rounds this morning. A 63-year-old female with history significant for HIV positive, hypertension, known ischemic cardiomyopathy, normal CD 4 cell count, undetected viral load, negative hepatitis C and RPR; admitted through emergency room on 01/23/2019; reported complaining of swelling of the tongue and jaw with difficulty speaking and swallowing. CT scan of the soft tissue and neck obtained on admission showed prominent soft tissue swelling, hypodensity in the right tonsillar region, right oropharynx, right nasopharynx with deviation of the airway to left, intubated for airway protection and admitted to ICU. Sedated on Diprivan drip and fentanyl. On steroid, Benadryl and Pepcid. Overnight, afebrile, normotensive, telemetry sinus rhythm, no distress noted. Alert and awake, opens eyes on request. Vent setting, AC/PRVC, rate 12 with tidal volume 400, FiO2 of 40%, observed rate 12, observed tidal volume 320, minute ventilation 4.7 liters, end-tidal CO2 47, peak airway pressure 40. PHYSICAL EXAMINATION: VITAL SIGNS: Temperature 99.7, heart rate 56-58 regular, blood pressure 106-115/56-64. Mean arterial pressure 72-81, saturation 98%, FiO2 40%. Intake 2774, output 700, positive balance 2074. Urine output 700. HEAD, EYES, EARS, NOSE AND THROAT: Pupils are reactive. Conjunctivae pink. Sclerae are white. NECK: Supple. Trachea central. Endotracheal tube in place. No secretions noted. CHEST: Bilateral breath sounds. Clear to auscultation anteriorly and laterally. HEART: Rhythm regular. S1, S2 normal intensity. No S3 or S4 gallop. No audible murmur or rub. ABDOMEN: Bowel sounds present. Soft. Liver and spleen not palpable. Bladder not distended. EXTREMITIES: Trace dependent edema. DP palpable. SKIN: Without any drug rash. NEUROLOGIC: Sedated on Diprivan, being weaned off, also on fentanyl drip. CURRENT MEDICATIONS: Tylenol 650 every 6 hours p.r.n. clindamycin 600 mg IV every 8 hours, ampicillin with sulbactam 1.5 g IV every 6 hours, vancomycin 1 g IV every 12 hours, ritonavir 100 mg at night, Seroquel 100 mg p.o. at bedtime, Diprivan titrated to [place] scale sedation, nicotine patch daily, Solu-Medrol 40 mg IV every 12 hours, fentanyl drip at 2 mcg/Kg per hour, Pepcid 20 mg IV every 12 hours, Lovenox 40 mg subcutaneous daily, Truvada 1 tablet p.o. at bedtime, Cymbalta 60 mg p.o. daily, Benadryl 25 mg IV every 8 hours, Darunavir 800 mg p.o. at bedtime, Lipitor 40 mg daily, artificial tears two drops OU every four hours p.r.n. LABORATORY DATA: WBC 8.7, hemoglobin 11, hematocrit 33.8, platelet count of 262. PT 11.2, INR 1, PTT 26.2. ABG; pH 7.64, pCO2 of 23, pO2 of 195, saturation 97.6 on AC 12, 400, 40% with a PEEP of 5 consistent with respiratory alkalosis. SMA-7; sodium 136, potassium 4.4, chloride 104, CO2 of 25, blood urea nitrogen 21, creatinine 0.5, random glucose 185, calcium 9.1. Microbiology, nasal smear methicillin-resistant Staphylococcus aureus negative. Blood culture, no growth reported. DIAGNOSTIC DATA: Chest x-ray done this morning, ET tube 6.3 cm above the grady, pleura; no significant pleural effusion. Lungs, no active pulmonary disease. CT of soft tissue neck repeated on 01/24/2019, stable parapharyngeal edema without abscess, evident artifact from dental hardware as well as endotracheal and nasogastric tubes limit evaluation, trace upper retropharyngeal soft tissue edema not completely excluded, minimal limited lower facial subcutaneous edema evident, suggestive of cellulitis. IMPRESSION AND PLAN: 1. Neuro: Alert, awake, intubated, sedated on Diprivan drip and fentanyl. Repeat CT soft tissue neck still with retropharyngeal edema and edema suggesting possible cellulitis. Continue Diprivan to facilitate the mechanical ventilation. After seen by ENT, if feasible, try spontaneous breathing trial and extubation. 2. Pulmonary: Intubated for airway protection. X-ray without any acute infiltrate. 3. Cardiac: History of human immunodeficiency virus related cardiomyopathy. Repeat echo shows normal ejection fraction. No history of ischemic heart disease. The patient was on enalapril, on hold now. Her blood pressure is stable. 4. Infectious Disease: To rule out retropharyngeal cellulitis versus angioedema, seen by ID consult. Recommended vancomycin, clindamycin and Unasyn empirically. The soft tissue swelling/edema improved on steroid, Pepcid and Benadryl. Human immunodeficiency virus positive with good CD-4 count and low viral load. Continue antiretroviral medications. 5. Hematology: Leukocytosis improved. Still on Solu-Medrol. 6. Gastroenterology: Normal liver enzymes, on feeding through the NG tube. No diarrhea noted. 7. Renal, no acute issues. Keep head of bed at [address] in [address] for adequate measurement of intake and output. Toño Treviño MD
[2019-01-25] MEDS ORDERED: Neostigmine 1:1000 (1 mg/ml) Inj ONE (19:09)
[2019-01-25] MEDS ORDERED: Propofol 10 mg/ml Inj (20 ML) ONE (19:09)
[2019-01-25] MEDS ORDERED: Rocuronium 10 mg/ml (5 ml) ONE (19:09)
[2019-01-25] MEDS: MethylPREDNISolone 40 mg Vial IVP SCH (20:17)
[2019-01-25] MEDS: Emtricitabine-Tenofovir 200 mg-300 mg Tab PO SCH (21:03)
[2019-01-26] MEDS: DiphenhydrAMINE 50 mg/ml Inj IVP SCH ×3 (00:19→16:30)
[2019-01-26] MEDS: Clindamycin 600mg/50ml NS 600 MG/50 ML BAG IVPB SCH ×3 (00:19→16:31)
[2019-01-26] MEDS: Propofol 10 mg/ml 1,000 MG/100 ML VIAL IV SCH (01:12)
[2019-01-26] MEDS: Fentanyl Citrate 2,500 MCG in Dextrose 5% In Water 200 ML IV SCH (03:03)
--- NOTE | 2019-01-26 05:03 | OP ---
PROCEDURE DATE: 01/25/2019 PREOPERATIVE DIAGNOSIS: Possible airway obstruction. POSTOPERATIVE DIAGNOSIS: Possible airway obstruction. PROCEDURE: Direct laryngoscopy. SIGNIFICANT FINDINGS: No masses, no lesions. DESCRIPTION OF PROCEDURE: The patient was brought into the room, placed in the supine position. Anesthesia was initiated through an ET tube. Shoulder roll was placed. Neck extended. The patient was draped in usual manner. The patient was re-intubated. The patient was already intubated in the ICU and anesthesia was initiated. The patient had her neck extended. Tooth guard was placed over the upper teeth in order to protect them and removed at the end of the case. Direct laryngoscope was inserted into the oral cavity and passed through the oropharynx and hypopharynx, and pharyngeal wall, space of tongue, vallecula, AE folds, false cords, true cords, arytenoids. Piriform sinuses were brought into view. No masses or lesions were noted. No erythema or edema were noted. The direct laryngoscope was removed. Tyrel Gonsalves MD
[2019-01-26 05:09] LABS: ABG ALLEN TEST YES; ARTERIAL BLOOD GAS HCO3 31.3 mmol/L (21-28); ARTERIAL BLOOD GAS O2 SAT 97.5 % (95-98); ARTERIAL BLOOD GAS PCO2 58 mm/Hg (35-45); ARTERIAL BLOOD GAS PH 7.39 (7.35-7.45); ARTERIAL BLOOD GAS PO2 141 mm/Hg (80-100); ARTERIAL BLOOD GAS TCO2 36.9 mmol/L (22-28)
[2019-01-26 05:36] LABS: HEMOGLOBIN 11.2 g/dL (12.0-16.0); LYMPH # 0.2 K/uL (1.0-4.3); MEAN CELL VOLUME 99.6 fl (81.0-99.0); MEAN CORPUSCULAR HEMOGLOBIN 33.1 pg (27.0-31.0); MEAN CORPUSCULAR HGB CONC 33.2 g/dL (33.0-37.0); MEAN PLATELET VOLUME 9.1 fl (7.2-11.7); MONO # 0.3 K/uL (0.0-0.8); NEUT # 5.2 K/uL (1.8-7.0); RBC 3.39 Mil/uL (3.80-5.20); RED CELL DISTRIBUTION WIDTH 15.1 % (11.5-14.5); WHITE BLOOD COUNT 5.7 K/uL (4.8-10.8)
[2019-01-26 05:52] LABS: BLOOD UREA NITROGEN 22 mg/dl (7-17); CALCIUM 8.9 mg/dL (8.4-10.2); GFR NON-AFRICAN AMERICAN > 60
[2019-01-26] MEDS: Enoxaparin 40 mg Syringe SC SCH (08:13)
[2019-01-26] MEDS: MethylPREDNISolone 40 mg Vial IVP SCH ×2 (08:14→21:25)
--- NOTE | 2019-01-26 10:07 | CP.CCUPN ---
<Aurelia Mi - Last Filed: 01/26/19 12:27> CCU Subjective - Physician Review Events Since Last Encounter (Free Text): Pt discussed on rounds today and seen and examined at bedside. She was admitted on 01/23/19 for throat swelling of unknown etiology. CT showed prominent soft tissue swelling and possible cellulitis, and patient was having trouble swallowing secretions. She was electively intubated in ED for airway protection and she is sedated with propofol and fentanyl. Repeat CT showed continued edema, after which direct laryngoscopy was done by ENT Dr. Gonsalves yesterday; reported as no edema/erythema visualized (see full separate report). This am, pt intubated and sedated. Vent settings: PRVC/AC, TV 400, Rate 12, FiO2 40%, PEEP 5. Physical Exam: General: thin female, intubated and sedated HEENT: atraumatic, normocephalic, no visible edema seen from inspection of face/neck Cardiovascular: S1S2, RRR Resp: clear to auscultation bilaterally Abd: soft, nondistended, +BS Ext: no edema, venodyne boots in place Assessment: 63 yo F with medical hx HIV, hypertension, hyperlipidemia, non-ischemic cardiomyopathy, admitted due to airway edema of unknown etiology. Pt currently intubated and sedated; s/p direct laryngoscopy by ENT. Plan: Upper Airway Edema due to retropharyngeal cellulitis vs allergic reaction - Intubated, sedated; reported awake/alert during sedation vacations; NG tube for feeding - s/p direct laryngoscopy by ENT no edema reported - Plan to wean off sedation today and possibly extubate - Continue solumedrol 40 mg Q12 hrs - Continue Benadryl Q8hrs - ID consulted for possible abscess vs cellulitis: on clindamycin, unasyn, vancomycin HIV without AIDS, asymptomatic -Has regular follow up [facility] -Last CD4 count 864 and viral load <20 in Sep 2018 -Continue HAART Hypertension -JESSICA inhibitor held -Stable Cardiomyopathy - Has hx of HIV related cardiomyopathy - JESSICA inhibitor held DVT prophylaxis -Lovenox 40 mg SC daily Pt seen/examined/discussed w/ Dr. Ortiz. 01/26/19 11:23 CCU Objective - Vital Signs / Intake & Output Vital Signs (Last 4 hours): Vital Signs Temp Pulse Resp BP Pulse Ox 01/26/19 08:00 98.4 F 58 L 12 124/65 100 Intake and Output (Last 8hrs): Intake & Output 01/25/19 01/26/19 01/26/19 22:59 06:59 14:59 Intake Total 1100 1114 Output Total 500 700 Balance 600 414 Weight 130 lb Intake: IV 64 434 Intake, Piggyback 556 200 Tube Feeding 480 480 Output: Urine 500 700 Urethral (Dick) 500 700 Other: # Bowel Movements 0 - Medications Active Medications: Active Medications Generic Name Dose Route Start Last Admin Trade Name Freq PRN Reason Stop Dose Admin Acetaminophen 650 mg 01/25/19 10:10 01/25/19 10:47 Tylenol 325mg Tab NG 650 mg Q6 PRN Administration Fever >100.4 F Artificial Tears 2 drop 01/24/19 10:00 01/24/19 10:59 Artificial Tears OU 2 d Q4 PRN Administration Dry eyes Atorvastatin Calcium 40 mg 01/23/19 22:00 01/25/19 21:03 Lipitor PO 40 mg HS ELMER Administration Darunavir 800 mg 01/23/19 22:00 01/25/19 21:02 Prezista PO 800 mg HS ELMER Administration Protocol Diphenhydramine HCl 25 mg 01/23/19 09:00 01/26/19 00:19 Benadryl IVP 25 mg Q8 ELMER Administration Duloxetine HCl 60 mg 01/24/19 09:00 01/26/19 08:13 Cymbalta PO 60 mg DAILY ELMER Administration Emtricitabine/Tenofovir 1 tab 01/23/19 22:00 01/25/19 21:03 Truvada 200 Mg-300 Mg PO 1 tab HS ELMER Administration Protocol Enoxaparin Sodium 40 mg 01/24/19 09:00 01/26/19 08:13 Lovenox SC 40 mg DAILY ELMER Administration Protocol Famotidine 20 mg 01/23/19 09:00 01/26/19 08:18 Pepcid IVP 20 mg Q12 ELMER Administration Fentanyl Citrate 2,500 mcg/ 250 mls @ 10.7 mls/hr 01/23/19 05:15 01/26/19 03:37 Dextrose IV 2.5 mcg/kg/hr .[id number] ELMER 13.38 mls/hr Titration Protocol 2 MCG/KG/HR Ampicillin Sodium/Sulbactam 100 mls @ 100 mls/hr 01/23/19 10:00 01/26/19 03:08 Sodium 1.5 gm/ Sodium Chloride IVPB 100 mls/hr Q6 ELMER Administration Protocol Vancomycin HCl 1 gm/ Sodium 250 mls @ 166.667 mls/hr 01/23/19 09:00 01/25/19 20:13 Chloride IVPB 166.667 mls/hr Q12 ELMER Administration Protocol Clindamycin Phosphate 600 mg in 50 mls @ 100 mls/hr 01/23/19 17:00 01/26/19 08:13 Cleocin 600mg/50ml Ns IVPB 100 mls/hr Q8 ELMER Administration Protocol Methylprednisolone 40 mg 01/25/19 21:00 01/26/19 08:14 Solu-Medrol IVP 40 mg Q12H ELMER Administration Nicotine 1 patch 01/23/19 12:30 01/26/19 08:13 Nicoderm Cq TD 1 patch DAILY ELMER Administration Quetiapine Fumarate 100 mg 01/23/19 22:00 01/25/19 21:02 Seroquel PO 100 mg HS ELMER Administration Ritonavir 100 mg 01/23/19 22:00 01/25/19 21:02 Norvir PO 100 mg HS ELMER Administration Protocol - Patient Studies Lab Studies: Microbiology Studies 01/23/19 13:37 Blood Culture - Preliminary Blood-Venous NO GROWTH AFTER 48 HOURS 01/23/19 13:37 Blood Culture - Preliminary Blood-Venous NO GROWTH AFTER 48 HOURS Lab Studies 01/26/19 01/26/19 01/26/19 Range/Units 05:06 04:22 04: WBC (4.8-10.8) K/uL RBC (3.80-5.20) Mil/uL Hgb (12.0-16.0) g/dL Hct (34.0-47.0) % MCV (81.0-99.0) fl MCH (27.0-31.0) pg MCHC (33.0-37.0) g/dL RDW (11.5-14.5) % Plt Count (130-400) K/uL MPV (7.2-11.7) fl Neut % (Auto) (50.0-75.0) % Lymph % (Auto) (20.0-40.0) % [place] % (Auto) (0.0-10.0) % Eos % (Auto) (0.0-4.0) % Baso % (Auto) (0.0-2.0) % Neut # (Auto) (1.8-7.0) K/uL Lymph # (Auto) (1.0-4.3) K/uL [place] # (Auto) (0.0-0.8) K/uL Eos # (Auto) (0.0-0.7) K/uL Baso # (Auto) (0.0-0.2) K/uL Total Counted Neutrophils % (Manual) Band Neutrophils % Lymphocytes % (Manual) Reactive Lymphs % Monocytes % (Manual) Eosinophils % (Manual) Basophils % (Manual) Metamyelocytes % Myelocytes % Promyelocytes % Blast Cells % Plasma Cell % (Manual) Nucleated RBC % Hypersegmented Polys Smudge Cells Toxic Granulation Dohle Bodies Rina Rods Platelet Estimate Plt Clumps, EDTA Large Platelets Giant Platelets RBC Morphology Polychromasia Hypochromasia (manual) Poikilocytosis (manual Basophilic Stippling Anisocytosis (manual) Microcytosis (manual) Macrocytosis (manual) Spherocytes Sickle Cells Target Cells Tear Drop Cells Ovalocytes Stomatocytes Helmet Cells [place] Bodies Janette Cells Acanthocytes (Spur) Rouleaux Schistocytes pCO2 58 H (35-45) mm/Hg pO2 141 H (80-100) mm/Hg HCO3 31.3 H (21-28) mmol/L ABG pH 7.39 (7.35-7.45) ABG Total CO2 36.9 H (22-28) mmol/L ABG O2 Saturation 97.5 (95-98) % ABG Base Excess 8.1 H (-2.0-3.0) mmol/L Pancho Test Yes ABG Potassium 4.6 (3.6-5.2) mmol/L A-a O2 Difference 72.0 mm/Hg Glucose 218 H (65-105) mg/dL Lactate 1.8 (0.7-2.1) mmol/L Vent Mode A/c Mechanical Rate 12 FiO2 40.0 % Tidal Volume 400 PEEP 5 Sodium 138.0 (132-148) mmol/l Potassium (3.6-5.0) MMOL/L Chloride 108.0 H (98-107) mmol/L Carbon Dioxide (22-30) mmol/L Anion Gap (10-20) BUN (7-17) mg/dl Creatinine (0.7-1.2) mg/dl Est GFR ( Amer) Est GFR (Non-Af Amer) POC Glucose (mg/dL) 204 H (65-110) mg/dL Random Glucose (65-105) mg/dL Calcium (8.4-10.2) mg/dL Arterial Blood Potassium 4.6 (3.6-5.2) mmol/L Vancomycin Trough 9.6 (5.0-10.0) ug/mL 01/26/19 01/26/19 01/25/19 Range/Units 04:19 04: 20:47 WBC 5.7 (4.8-10.8) K/uL RBC 3.39 L (3.80-5.20) Mil/uL Hgb 11.2 L (12.0-16.0) g/dL Hct 33.8 L (34.0-47.0) % MCV 99.6 H (81.0-99.0) fl MCH 33.1 H (27.0-31.0) pg MCHC 33.2 (33.0-37.0) g/dL RDW 15.1 H (11.5-14.5) % Plt Count 265 (130-400) K/uL MPV 9.1 (7.2-11.7) fl Neut % (Auto) 91.0 H (50.0-75.0) % Lymph % (Auto) 3.0 L (20.0-40.0) % [place] % (Auto) 6.0 (0.0-10.0) % Eos % (Auto) 0.0 (0.0-4.0) % Baso % (Auto) 0.0 (0.0-2.0) % Neut # (Auto) 5.2 (1.8-7.0) K/uL Lymph # (Auto) 0.2 L (1.0-4.3) K/uL [place] # (Auto) 0.3 (0.0-0.8) K/uL Eos # (Auto) 0.0 (0.0-0.7) K/uL Baso # (Auto) 0.0 (0.0-0.2) K/uL Total Counted Cancelled Neutrophils % (Manual) Cancelled Band Neutrophils % Cancelled Lymphocytes % (Manual) Cancelled Reactive Lymphs % Cancelled Monocytes % (Manual) Cancelled Eosinophils % (Manual) Cancelled Basophils % (Manual) Cancelled Metamyelocytes % Cancelled Myelocytes % Cancelled Promyelocytes % Cancelled Blast Cells % Cancelled Plasma Cell % (Manual) Cancelled Nucleated RBC % Cancelled Hypersegmented Polys Cancelled Smudge Cells Cancelled Toxic Granulation Cancelled Dohle Bodies Cancelled Rina Rods Cancelled Platelet Estimate Cancelled Plt Clumps, EDTA Cancelled Large Platelets Cancelled Giant Platelets Cancelled RBC Morphology Cancelled Polychromasia Cancelled Hypochromasia (manual) Cancelled Poikilocytosis (manual Cancelled Basophilic Stippling Cancelled Anisocytosis (manual) Cancelled Microcytosis (manual) Cancelled Macrocytosis (manual) Cancelled Spherocytes Cancelled Sickle Cells Cancelled Target Cells Cancelled Tear Drop Cells Cancelled Ovalocytes Cancelled Stomatocytes Cancelled Helmet Cells Cancelled [place] Bodies Cancelled Erving Cells Cancelled Acanthocytes (Spur) Cancelled Rouleaux Cancelled Schistocytes Cancelled pCO2 (35-45) mm/Hg pO2 (80-100) mm/Hg HCO3 (21-28) mmol/L ABG pH (7.35-7.45) ABG Total CO2 (22-28) mmol/L ABG O2 Saturation (95-98) % ABG Base Excess (-2.0-3.0) mmol/L Pancho Test ABG Potassium (3.6-5.2) mmol/L A-a O2 Difference mm/Hg Glucose (65-105) mg/dL Lactate (0.7-2.1) mmol/L Vent Mode Mechanical Rate FiO2 % Tidal Volume PEEP Sodium 138 (132-148) mmol/l Potassium 4.5 (3.6-5.0) MMOL/L Chloride 101 (98-107) mmol/L Carbon Dioxide 29 (22-30) mmol/L Anion Gap 13 (10-20) BUN 22 H (7-17) mg/dl Creatinine 0.5 L (0.7-1.2) mg/dl Est GFR ( Amer) > 60 Est GFR (Non-Af Amer) > 60 POC Glucose (mg/dL) 214 H (65-110) mg/dL Random Glucose 213 H (65-105) mg/dL Calcium 8.9 (8.4-10.2) mg/dL Arterial Blood Potassium (3.6-5.2) mmol/L Vancomycin Trough (5.0-10.0) ug/mL 01/25/19 Range/Units 16:38 WBC (4.8-10.8) K/uL RBC (3.80-5.20) Mil/uL Hgb (12.0-16.0) g/dL Hct (34.0-47.0) % MCV (81.0-99.0) fl MCH (27.0-31.0) pg MCHC (33.0-37.0) g/dL RDW (11.5-14.5) % Plt Count (130-400) K/uL MPV (7.2-11.7) fl Neut % (Auto) (50.0-75.0) % Lymph % (Auto) (20.0-40.0) % [place] % (Auto) (0.0-10.0) % Eos % (Auto) (0.0-4.0) % Baso % (Auto) (0.0-2.0) % Neut # (Auto) (1.8-7.0) K/uL Lymph # (Auto) (1.0-4.3) K/uL [place] # (Auto) (0.0-0.8) K/uL Eos # (Auto) (0.0-0.7) K/uL Baso # (Auto) (0.0-0.2) K/uL Total Counted Neutrophils % (Manual) Band Neutrophils % Lymphocytes % (Manual) Reactive Lymphs % Monocytes % (Manual) Eosinophils % (Manual) Basophils % (Manual) Metamyelocytes % Myelocytes % Promyelocytes % Blast Cells % Plasma Cell % (Manual) Nucleated RBC % Hypersegmented Polys Smudge Cells Toxic Granulation Dohle Bodies Rina Rods Platelet Estimate Plt Clumps, EDTA Large Platelets Giant Platelets RBC Morphology Polychromasia Hypochromasia (manual) Poikilocytosis (manual Basophilic Stippling Anisocytosis (manual) Microcytosis (manual) Macrocytosis (manual) Spherocytes Sickle Cells Target Cells Tear Drop Cells Ovalocytes Stomatocytes Helmet Cells [place] Bodies Janette Cells Acanthocytes (Spur) Rouleaux Schistocytes pCO2 (35-45) mm/Hg pO2 (80-100) mm/Hg HCO3 (21-28) mmol/L ABG pH (7.35-7.45) ABG Total CO2 (22-28) mmol/L ABG O2 Saturation (95-98) % ABG Base Excess (-2.0-3.0) mmol/L Pancho Test ABG Potassium (3.6-5.2) mmol/L A-a O2 Difference mm/Hg Glucose (65-105) mg/dL Lactate (0.7-2.1) mmol/L Vent Mode Mechanical Rate FiO2 % Tidal Volume PEEP Sodium (132-148) mmol/l Potassium (3.6-5.0) MMOL/L Chloride (98-107) mmol/L Carbon Dioxide (22-30) mmol/L Anion Gap (10-20) BUN (7-17) mg/dl Creatinine (0.7-1.2) mg/dl Est GFR ( Amer) Est GFR (Non-Af Amer) POC Glucose (mg/dL) 203 H (65-110) mg/dL Random Glucose (65-105) mg/dL Calcium (8.4-10.2) mg/dL Arterial Blood Potassium (3.6-5.2) mmol/L Vancomycin Trough (5.0-10.0) ug/mL Laboratory Results - last 24 hr 01/25/19 01/25/19 01/26/19 16:38 20:47 04:19 WBC 5.7 RBC 3.39 L Hgb 11.2 L Hct 33.8 L MCV 99.6 H MCH 33.1 H MCHC 33.2 RDW 15.1 H Plt Count 265 MPV 9.1 Neut % (Auto) 91.0 H Lymph % (Auto) 3.0 L [place] % (Auto) 6.0 Eos % (Auto) 0.0 Baso % (Auto) 0.0 Neut # (Auto) 5.2 Lymph # (Auto) 0.2 L [place] # (Auto) 0.3 Eos # (Auto) 0.0 Baso # (Auto) 0.0 Total Counted Cancelled Neutrophils % (Manual) Cancelled Band Neutrophils % Cancelled Lymphocytes % (Manual) Cancelled Reactive Lymphs % Cancelled Monocytes % (Manual) Cancelled Eosinophils % (Manual) Cancelled Basophils % (Manual) Cancelled Metamyelocytes % Cancelled Myelocytes % Cancelled Promyelocytes % Cancelled Blast Cells % Cancelled Plasma Cell % (Manual) Cancelled Nucleated RBC % Cancelled Hypersegmented Polys Cancelled Smudge Cells Cancelled Toxic Granulation Cancelled Dohle Bodies Cancelled Rina Rods Cancelled Platelet Estimate Cancelled Plt Clumps, EDTA Cancelled Large Platelets Cancelled Giant Platelets Cancelled RBC Morphology Cancelled Polychromasia Cancelled Hypochromasia (manual) Cancelled Poikilocytosis (manual Cancelled Basophilic Stippling Cancelled Anisocytosis (manual) Cancelled Microcytosis (manual) Cancelled Macrocytosis (manual) Cancelled Spherocytes Cancelled Sickle Cells Cancelled Target Cells Cancelled Tear Drop Cells Cancelled Ovalocytes Cancelled Stomatocytes Cancelled Helmet Cells Cancelled [place] Bodies Cancelled Janette Cells Cancelled Acanthocytes (Spur) Cancelled Rouleaux Cancelled Schistocytes Cancelled pCO2 pO2 HCO3 ABG pH ABG Total CO2 ABG O2 Saturation ABG Base Excess Pancho Test ABG Potassium A-a O2 Difference Glucose Lactate Vent Mode Mechanical Rate FiO2 Tidal Volume PEEP Sodium Potassium Chloride Carbon Dioxide Anion Gap BUN Creatinine Est GFR ( Amer) Est GFR (Non-Af Amer) POC Glucose (mg/dL) 203 H 214 H Random Glucose Calcium Arterial Blood Potassium Vancomycin Trough 01/26/19 01/26/19 01/26/19 04:19 04:19 04:22 WBC RBC Hgb Hct MCV MCH MCHC RDW Plt Count MPV Neut % (Auto) Lymph % (Auto) [place] % (Auto) Eos % (Auto) Baso % (Auto) Neut # (Auto) Lymph # (Auto) [place] # (Auto) Eos # (Auto) Baso # (Auto) Total Counted Neutrophils % (Manual) Band Neutrophils % Lymphocytes % (Manual) Reactive Lymphs % Monocytes % (Manual) Eosinophils % (Manual) Basophils % (Manual) Metamyelocytes % Myelocytes % Promyelocytes % Blast Cells % Plasma Cell % (Manual) Nucleated RBC % Hypersegmented Polys Smudge Cells Toxic Granulation Dohle Bodies Rina Rods Platelet Estimate Plt Clumps, EDTA Large Platelets Giant Platelets RBC Morphology Polychromasia Hypochromasia (manual) Poikilocytosis (manual Basophilic Stippling Anisocytosis (manual) Microcytosis (manual) Macrocytosis (manual) Spherocytes Sickle Cells Target Cells Tear Drop Cells Ovalocytes Stomatocytes Helmet Cells [place] Bodies Janette Cells Acanthocytes (Spur) Rouleaux Schistocytes pCO2 pO2 HCO3 ABG pH ABG Total CO2 ABG O2 Saturation ABG Base Excess Pancho Test ABG Potassium A-a O2 Difference Glucose Lactate Vent Mode Mechanical Rate FiO2 Tidal Volume PEEP Sodium 138 Potassium 4.5 Chloride 101 Carbon Dioxide 29 Anion Gap 13 BUN 22 H Creatinine 0.5 L Est GFR ( Amer) > 60 Est GFR (Non-Af Amer) > 60 POC Glucose (mg/dL) 204 H Random Glucose 213 H Calcium 8.9 Arterial Blood Potassium Vancomycin Trough 9.6 01/26/19 05:06 WBC RBC Hgb Hct MCV MCH MCHC RDW Plt Count MPV Neut % (Auto) Lymph % (Auto) [place] % (Auto) Eos % (Auto) Baso % (Auto) Neut # (Auto) Lymph # (Auto) [place] # (Auto) Eos # (Auto) Baso # (Auto) Total Counted Neutrophils % (Manual) Band Neutrophils % Lymphocytes % (Manual) Reactive Lymphs % Monocytes % (Manual) Eosinophils % (Manual) Basophils % (Manual) Metamyelocytes % Myelocytes % Promyelocytes % Blast Cells % Plasma Cell % (Manual) Nucleated RBC % Hypersegmented Polys Smudge Cells Toxic Granulation Dohle Bodies Rina Rods Platelet Estimate Plt Clumps, EDTA Large Platelets Giant Platelets RBC Morphology Polychromasia Hypochromasia (manual) Poikilocytosis (manual Basophilic Stippling Anisocytosis (manual) Microcytosis (manual) Macrocytosis (manual) Spherocytes Sickle Cells Target Cells Tear Drop Cells Ovalocytes Stomatocytes Helmet Cells [place] Bodies Janette Cells Acanthocytes (Spur) Rouleaux Schistocytes pCO2 58 H pO2 141 H HCO3 31.3 H ABG pH 7.39 ABG Total CO2 36.9 H ABG O2 Saturation 97.5 ABG Base Excess 8.1 H Pancho Test Yes ABG Potassium 4.6 A-a O2 Difference 72.0 Glucose 218 H Lactate 1.8 Vent Mode A/c Mechanical Rate 12 FiO2 40.0 Tidal Volume 400 PEEP 5 Sodium 138.0 Potassium Chloride 108.0 H Carbon Dioxide Anion Gap BUN Creatinine Est GFR ( Amer) Est GFR (Non-Af Amer) POC Glucose (mg/dL) Random Glucose Calcium Arterial Blood Potassium 4.6 Vancomycin Trough Fingerstick Blood Sugar Results: 204 Critical Care Progress Note - Nutrition Nutrition: Nutrition Category Date Time Status NPO Diet [DIET] Diets 01/23/19 Breakfast Active <Mike Ortiz - Last Filed: 01/26/19 16:20> Assessment/Plan - Assessment and Plan (Free Text) Plan: Patient successfully extubated, ETT removed without difficulty, no immediate stridor noted, stable spontaneous resp pattern noted, 100% SPO2 on 40% CAM. Attestation: Patient seen and examined at the bedside with Resident Dr. Mike Mi; and I agree with her outline of plans and management documented above as discussed on AM rounds; reflecting my review of all applicable clinical data, and participation in the care of the patient throughout the day in ICU; today, January 26, 2019.
--- NOTE | 2019-01-26 10:23 | RAD ---
Date of service: 01/26/2019 HISTORY: intubated COMPARISON: 01/25/2019 CT neck soft tissue report 01/23/2019 noted TECHNIQUE: 1 view obtained. FINDINGS: LUNGS: Vague increased opacity right lung apex and right paratracheal location. May be pleural parenchymal-slightly increased in conspicuity currently. CT neck soft tissue study 01/23/2019 references bi apical pleural parenchymal changes greater on the right. No dense consolidation seen here. Endotracheal tube tip clavicle level approximately 6 cm cephalad to grady. PLEURA: No significant pleural effusion identified, no pneumothorax apparent. CARDIOVASCULAR: There is presence of aortic atherosclerotic calcification on x-ray. Heart size borderline enlarged. No change appreciated. No pulmonary vascular congestion. OSSEOUS STRUCTURES: No significant abnormalities. VISUALIZED UPPER ABDOMEN: Nasogastric tube tip in gastric cardia distal segment coiling in gastric fundus. OTHER FINDINGS: None. IMPRESSION: No interval acute cardiopulmonary pathology noted. Other findings as above.
--- NOTE | 2019-01-26 11:46 | CP.PCM.PN ---
Subjective - Date & Time of Evaluation Date of Evaluation: 01/26/19 Time of Evaluation: 10:00 - Subjective Subjective: Patient seen and examined at bedside. Patient remains intubated/mechanically ventilated and sedated. Afebrile. No events overnight. No BM. Respiratory at bedside for CPAP trial. Objective - Vital Signs/Intake and Output Vital Signs (last 24 hours): Temp Pulse Resp BP Pulse Ox 98.4 F 58 L 12 124/65 100 01/26/19 08:00 01/26/19 08:00 01/26/19 08:00 01/26/19 08:00 01/26/19 08:00 Intake and Output: 01/26/19 01/26/19 06:59 18:59 Intake Total 1768 Output Total 700 Balance 1068 - Medications Medications: Current Medications Acetaminophen (Tylenol 325mg Tab) 650 mg NG Q6 PRN PRN Reason: Fever >100.4 F Last Admin: 01/25/19 10:47 Dose: 650 mg Artificial Tears (Artificial Tears) 2 drop OU Q4 PRN PRN Reason: Dry eyes Last Admin: 01/24/19 10:59 Dose: 2 d Atorvastatin Calcium (Lipitor) 40 mg PO HS ELMER Last Admin: 01/25/19 21:03 Dose: 40 mg Darunavir (Prezista) 800 mg PO HS ELMER; Protocol Last Admin: 01/25/19 21:02 Dose: 800 mg Diphenhydramine HCl (Benadryl) 25 mg IVP Q8 ELMER Last Admin: 01/26/19 10:16 Dose: Not Given Duloxetine HCl (Cymbalta) 60 mg PO DAILY ELMER Last Admin: 01/26/19 08:13 Dose: 60 mg Emtricitabine/Tenofovir (Truvada 200 Mg-300 Mg) 1 tab PO HS ELMER; Protocol Last Admin: 01/25/19 21:03 Dose: 1 tab Enoxaparin Sodium (Lovenox) 40 mg SC DAILY ELMER; Protocol Last Admin: 01/26/19 08:13 Dose: 40 mg Famotidine (Pepcid) 20 mg IVP Q12 ELMER Last Admin: 01/26/19 08:18 Dose: 20 mg Fentanyl Citrate 2,500 mcg/ (Dextrose) 250 mls @ 10.7 mls/hr IV .[id number] ELMER; Protocol Last Titration: 01/26/19 03:37 Dose: 2.5 mcg/kg/hr, 13.38 mls/hr Ampicillin Sodium/Sulbactam (Sodium 1.5 gm/ Sodium Chloride) 100 mls @ 100 mls/hr IVPB Q6 ELMER; Protocol Last Admin: 01/26/19 10:13 Dose: 100 mls/hr Vancomycin HCl 1 gm/ Sodium (Chloride) 250 mls @ 166.667 mls/hr IVPB Q12 ELMER; Protocol Last Admin: 01/26/19 10:15 Dose: 166.667 mls/hr Clindamycin Phosphate (Cleocin 600mg/50ml Ns) 600 mg in 50 mls @ 100 mls/hr IVPB Q8 ELMER; Protocol Last Admin: 01/26/19 08:13 Dose: 100 mls/hr Methylprednisolone (Solu-Medrol) 40 mg IVP Q12H ELMER Last Admin: 01/26/19 08:14 Dose: 40 mg Nicotine (Nicoderm Cq) 1 patch TD DAILY ELMER Last Admin: 01/26/19 08:13 Dose: 1 patch Quetiapine Fumarate (Seroquel) 100 mg PO HS ELMER Last Admin: 01/25/19 21:02 Dose: 100 mg Ritonavir (Norvir) 100 mg PO HS ELMER; Protocol Last Admin: 01/25/19 21:02 Dose: 100 mg - Labs Labs: 01/26/19 04:19 01/26/19 04:19 PT 11.2 Seconds (9.8-13.1) 01/24/19 04:50 INR 1.0 01/24/19 04:50 APTT 26.2 Seconds (25.6-37.1) 01/24/19 04:50 - Constitutional Appears: Non-toxic, Other (intubated, sedated) - Eye Exam Eye Exam: PERRL - Respiratory Exam Respiratory Exam: Clear to Ausculation Bilateral. absent: Rales, Rhonchi, Wheezes - Cardiovascular Exam Cardiovascular Exam: REGULAR RHYTHM, +S1, +S2. absent: Gallop, Murmur - GI/Abdominal Exam GI & Abdominal Exam: Soft, Normal Bowel Sounds - Extremities Exam Extremities Exam: absent: Pedal Edema - Neurological Exam Additional comments: sedated - Skin Skin Exam: Normal Color, Warm Assessment and Plan - Assessment and Plan (Free Text) Assessment: 63 yr old F admitted for retropharyngeal edema , intubated on mechanical ventilation. Patient remains stable. Direct laryngoscopy negative for masses or lesions. Plan to wean off mechanical ventilation and extubate. -Retropharyngeal edema. Celullitis vs angioedema. Less likely abscess Acute Continues intubated/ventilated/sedated, plan to wean off mechanical ventilation and extubate today Responds to stimuli and alert at times. Repeat neck CT Yesterday no significant changes compared to initial. Please see full report ID recs appreciated: Clinda IV day 4 C/w Vanco and Unasyn IV day 4 ENT consulted: Direct laryngoscopy negative for masses or lesions C/w Solumedrol q8h -HIV without AIDS Clinic notes reviewed Last CD4/Viral load 09/2018: 864/<20 Neg Hep C Ab, GC/Chl and RPR c/w home meds -Systolic congestive heart failure, unspecified congestive heart failure chronicity c/w same medications Last Echo 2017 EF 35 % Last stress test Lexicon 2017. Recently seen by Cardio as outpatient -Hypertension controlled off of medication at this time -Pulmonary emphysema, unspecified emphysema type chronic, controlled monitor VS -Hx of TIA Hold aggrenox for now -DVT prophylaxis Lovenox 40 mg daily
--- NOTE | 2019-01-26 16:21 | PCM.PROC ---
Procedures Attestation:: I certify that I have explained the specified Operation(s) or Procedure(s), risks, benefits and reasonable alternatives to the Patient and/or other person responsible. The opportunity was given to ask questions and all questions answered - Extubation Clinical Parameters: Resolution/Stabilization of disease process, Hemodynamically Stable, Intact Cough/Gag Reflex, Spontaneous Respirations, Acceptable Vent Settings (FIO2<50%, PEEP<8, PaO2>75, pH>7.25) Weaning Criteria Met: Yes General Weaning Approaches: Pressure Support Ventilation (PSV) Weaning Patient Condition: Patient has been successfully extubated and assessed Oxygen Therapy: O2 via Aerosol Mask Patient Tolerated Procedure: Well
[2019-01-26] MEDS: Emtricitabine-Tenofovir 200 mg-300 mg Tab PO SCH (21:25)
[2019-01-26] MEDS ORDERED: DiphenhydrAMINE 50 mg/ml Inj IVP STA (22:21)
[2019-01-27] MEDS: Clindamycin 600mg/50ml NS 600 MG/50 ML BAG IVPB SCH ×3 (01:04→16:04)
[2019-01-27] MEDS: DiphenhydrAMINE 50 mg/ml Inj IVP SCH (01:05)
[2019-01-27 06:19] LABS: HEMOGLOBIN 11.4 g/dL (12.0-16.0); MEAN CELL VOLUME 98.7 fl (81.0-99.0); MEAN CORPUSCULAR HGB CONC 33.4 g/dL (33.0-37.0); RBC 3.45 Mil/uL (3.80-5.20); RED CELL DISTRIBUTION WIDTH 15.3 % (11.5-14.5); WHITE BLOOD COUNT 6.4 K/uL (4.8-10.8)
[2019-01-27 06:32] LABS: BLOOD UREA NITROGEN 17 mg/dl (7-17); CALCIUM 8.4 mg/dL (8.4-10.2); GFR NON-AFRICAN AMERICAN > 60
[2019-01-27] MEDS: Enoxaparin 40 mg Syringe SC SCH (08:58)
[2019-01-27] MEDS: MethylPREDNISolone 40 mg Vial IVP SCH (09:01)
--- NOTE | 2019-01-27 10:25 | CP.PCM.PN ---
Subjective - Date & Time of Evaluation Date of Evaluation: 01/27/19 Time of Evaluation: 09:30 - Subjective Subjective: Patient seen and examined at bedside. In no acute distress, awake, drowsy and responsive. Afebrile, no events overnight. Reports decreased appetite. Denies chest pain, SOB or dizziness. Objective - Vital Signs/Intake and Output Vital Signs (last 24 hours): Temp Pulse Resp BP Pulse Ox 98.4 F 69 10 L 136/78 96 01/27/19 07:49 01/27/19 07:49 01/27/19 07:49 01/27/19 07:49 01/27/19 07:49 Intake and Output: 01/27/19 01/27/19 06:59 18:59 Intake Total 1030 0 Output Total 1650 100 Balance -620 -100 - Medications Medications: Current Medications Acetaminophen (Tylenol 325mg Tab) 650 mg NG Q6 PRN PRN Reason: Fever >100.4 F Last Admin: 01/25/19 10:47 Dose: 650 mg Amlodipine Besylate (Norvasc) 5 mg PO DAILY ELMER Atorvastatin Calcium (Lipitor) 40 mg PO HS ELMER Last Admin: 01/26/19 21:25 Dose: 40 mg Darunavir (Prezista) 800 mg PO HS ELMER; Protocol Last Admin: 01/26/19 21:24 Dose: 800 mg Duloxetine HCl (Cymbalta) 60 mg PO DAILY ELMER Last Admin: 01/27/19 08:58 Dose: 60 mg Emtricitabine/Tenofovir (Truvada 200 Mg-300 Mg) 1 tab PO HS ELMER; Protocol Last Admin: 01/26/19 21:25 Dose: 1 tab Enoxaparin Sodium (Lovenox) 40 mg SC DAILY ELMER; Protocol Last Admin: 01/27/19 08:58 Dose: 40 mg Ampicillin Sodium/Sulbactam (Sodium 1.5 gm/ Sodium Chloride) 100 mls @ 100 mls/hr IVPB Q6 ELMER; Protocol Last Admin: 01/27/19 09:06 Dose: 100 mls/hr Vancomycin HCl 1 gm/ Sodium (Chloride) 250 mls @ 166.667 mls/hr IVPB Q12 ELMER; Protocol Last Admin: 01/27/19 09:01 Dose: 166.667 mls/hr Clindamycin Phosphate (Cleocin 600mg/50ml Ns) 600 mg in 50 mls @ 100 mls/hr IVPB Q8 ELMER; Protocol Last Admin: 01/27/19 08:56 Dose: 100 mls/hr Nicotine (Nicoderm Cq) 1 patch TD DAILY ELMER Last Admin: 01/27/19 08:59 Dose: 1 patch Ondansetron HCl (Zofran Inj) 4 mg IVP Q4 PRN PRN Reason: Nausea/Vomiting Last Admin: 01/26/19 22:17 Dose: 4 mg Quetiapine Fumarate (Seroquel) 100 mg PO HS ELMER Last Admin: 01/26/19 21:25 Dose: 100 mg Ritonavir (Norvir) 100 mg PO HS ELMER; Protocol Last Admin: 01/26/19 21:25 Dose: 100 mg - Labs Labs: 01/27/19 05:30 01/27/19 05:30 PT 11.2 Seconds (9.8-13.1) 01/24/19 04:50 INR 1.0 01/24/19 04:50 APTT 26.2 Seconds (25.6-37.1) 01/24/19 04:50 - Constitutional Appears: No Acute Distress, Other (drowsy) - Head Exam Head Exam: ATRAUMATIC, NORMOCEPHALIC - Eye Exam Eye Exam: EOMI - ENT Exam ENT Exam: Mucous Membranes Moist - Respiratory Exam Respiratory Exam: Clear to Ausculation Bilateral, NORMAL BREATHING PATTERN - Cardiovascular Exam Cardiovascular Exam: REGULAR RHYTHM, +S1, +S2 - GI/Abdominal Exam GI & Abdominal Exam: Soft, Normal Bowel Sounds - Exam Additional comments: easley catheter in place - Extremities Exam Extremities Exam: absent: Calf Tenderness, Pedal Edema Additional comments: left hand IV in place - Neurological Exam Neurological Exam: Awake (drowsy) - Psychiatric Exam Psychiatric exam: Normal Affect, Normal Mood - Skin Skin Exam: Dry, Normal Color, Warm Assessment and Plan - Assessment and Plan (Free Text) Assessment: 63 yr old F admitted for retropharyngeal edema. Patient remains stable. Direct laryngoscopy negative for masses or lesions. Patient was extubated yesterday and is on supplemental O2 2L via nasal cannula. Tolerating PO diet. Plan for transfer to telemetry and physical therapy evaluation and treatment. Retropharyngeal edema. Celullitis vs angioedema. Less likely abscess -improving, likely angioedema secondary to allergic reaction -extubated yesterday, normal O2 sat on nasal cannula 2L, tolerating PO diet -awake and drowsy today, discontinue benadryl -ID recs appreciated: Clinda IV day 5 -C/w Vanco and Unasyn IV day 5 -ENT consulted: Direct laryngoscopy negative for masses or lesions -discontinued Solumedrol, benadryl and easley catheter HIV without AIDS Clinic notes reviewed Last CD4/Viral load 09/2018: 864/<20 -Neg Hep C Ab, GC/Chl and RPR -continue home meds Systolic congestive heart failure, unspecified congestive heart failure chronicity -chronic, stable -Last Echo 2017 EF 35 % -Last stress test Lexicon 2017. -Recently seen by Cardio as outpatient Hypertension -start norvasc 5 mg PO QD -do not resume prior home med: enalapril, may have caused to angioedema -monitor BP Pulmonary emphysema, unspecified emphysema type -chronic, controlled -monitor VS Hx of TIA -Hold aggrenox for now -DVT prophylaxis -Lovenox 40 mg daily
[2019-01-27] MEDS ORDERED: Lidocaine 5% Patch TD PRN (12:45)
[2019-01-27 15:33] LABS: ABG ALLEN TEST YES; ARTERIAL BLOOD GAS HCO3 35.2 mmol/L (21-28); ARTERIAL BLOOD GAS HEMOGLOBIN 11.7 g/dL (11.7-17.4); ARTERIAL BLOOD GAS O2 CAPACITY 16.3 mL/dL (16-24); ARTERIAL BLOOD GAS O2 SAT 92.2 % (95-98); ARTERIAL BLOOD GAS PCO2 57 mm/Hg (35-45); ARTERIAL BLOOD GAS PH 7.45 (7.35-7.45); ARTERIAL BLOOD GAS PO2 60 mm/Hg (80-100); ARTERIAL BLOOD GAS TCO2 41.3 mmol/L (22-28)
[2019-01-27] MEDS: Emtricitabine-Tenofovir 200 mg-300 mg Tab PO SCH (21:16)
[2019-01-28] MEDS: Clindamycin 600mg/50ml NS 600 MG/50 ML BAG IVPB SCH ×2 (00:11→08:28)
[2019-01-28 05:50] LABS: BLOOD UREA NITROGEN 14 mg/dl (7-17); CALCIUM 8.4 mg/dL (8.4-10.2); GFR NON-AFRICAN AMERICAN > 60
[2019-01-28] MEDS ORDERED: Potassium Chloride 20 mEq ER Tab PO ONE (07:53)
[2019-01-28] MEDS: Enoxaparin 40 mg Syringe SC SCH (08:28)
[2019-01-28] MEDS ORDERED: MethylPREDNISolone 40 mg Vial IVP SCH (09:00)
--- NOTE | 2019-01-28 11:56 | CP.PCM.DIS ---
<Nancie Silva - Last Filed: 01/28/19 11:54> Provider - Provider Date of Admission: 01/23/19 04:55 Attending physician: Mikal Lea Primary care physician: Sue Wright Consults: 01/23/19 04:51 Critical Care Consult Stat Comment: Consulting Provider: Mikal Lea Consulting Physician: Mikal Lea Reason for Consult: airway compromise 01/23/19 04:59 Otolaryngology Consult Stat Consulting Provider: Tyrel Gonsalves Consulting Physician: Tyrel Gonsalves Reason for Consult: tonsillar and throat swelling with airway compromise Additional Comments: Intubated for airway protection 01/23/19 07:39 Nursing Referral for Wound Care Routine Comment: Physician Instructions: Reason For Exam: protocol 01/23/19 08:40 Infectious Disease Consult Routine Comment: Consulting Provider: Rubén Cowan Consulting Physician: Rubén Cowan Reason for Consult: HIV +, ? retropharyngeal celluitis 01/23/19 10:30 Pastoral Care Referral Routine Comment: Physician Instructions: Reason For Exam: protocol Time Spent in preparation of Discharge (in minutes): 30 Diagnosis - Discharge Diagnosis (1) Angioedema Status: Acute Priority: Low (2) Pharyngeal edema Status: Resolved Priority: Low (3) Dysphagia Status: Resolved Priority: Low (4) HIV infection, asymptomatic Status: Chronic Priority: Low (5) Systolic heart failure Status: Chronic Priority: Low (6) HTN (hypertension) Status: Chronic Priority: Low Hospital Course - Lab Results Lab Results: Micro Results 01/23/19 13:37 Blood-Venous Blood Culture - Preliminary NO GROWTH AFTER 4 DAYS 01/23/19 13:37 Blood-Venous Blood Culture - Preliminary NO GROWTH AFTER 4 DAYS 01/23/19 17:01 Nose MRSA Culture (Admit) - Final MRSA NOT DETECTED Most Recent Lab Values WBC 6.4 K/uL (4.8-10.8) 01/27/19 05:30 RBC 3.45 Mil/uL (3.80-5.20) L 01/27/19 05:30 Hgb 11.4 g/dL (12.0-16.0) L 01/27/19 05:30 Hct 34.1 % (34.0-47.0) 01/27/19 05:30 MCV 98.7 fl (81.0-99.0) 01/27/19 05:30 MCH 33.0 pg (27.0-31.0) H 01/27/19 05:30 MCHC 33.4 g/dL (33.0-37.0) 01/27/19 05:30 RDW 15.3 % (11.5-14.5) H 01/27/19 05:30 Plt Count 242 K/uL (130-400) 01/27/19 05:30 MPV 9.1 fl (7.2-11.7) 01/26/19 04:19 Neut % (Auto) 91.0 % (50.0-75.0) H 01/26/19 04:19 Lymph % (Auto) 3.0 % (20.0-40.0) L 01/26/19 04:19 [place] % (Auto) 6.0 % (0.0-10.0) 01/26/19 04:19 Eos % (Auto) 0.0 % (0.0-4.0) 01/26/19 04:19 Baso % (Auto) 0.0 % (0.0-2.0) 01/26/19 04:19 Neut # (Auto) 5.2 K/uL (1.8-7.0) 01/26/19 04:19 Lymph # (Auto) 0.2 K/uL (1.0-4.3) L 01/26/19 04:19 [place] # (Auto) 0.3 K/uL (0.0-0.8) 01/26/19 04:19 Eos # (Auto) 0.0 K/uL (0.0-0.7) 01/26/19 04:19 Baso # (Auto) 0.0 K/uL (0.0-0.2) 01/26/19 04:19 Total Counted Cancelled 01/26/19 04:19 Neutrophils % (Manual) 89 % (42-75) H 01/24/19 04:50 Band Neutrophils % Cancelled 01/26/19 04:19 Lymphocytes % (Manual) 8 % (20-50) L 01/24/19 04:50 Reactive Lymphs % Cancelled 01/26/19 04:19 Monocytes % (Manual) 3 % (0-10) 01/24/19 04:50 Eosinophils % (Manual) Cancelled 01/26/19 04:19 Basophils % (Manual) Cancelled 01/26/19 04:19 Metamyelocytes % Cancelled 01/26/19 04:19 Myelocytes % Cancelled 01/26/19 04:19 Promyelocytes % Cancelled 01/26/19 04:19 Blast Cells % Cancelled 01/26/19 04:19 Plasma Cell % (Manual) Cancelled 01/26/19 04:19 Nucleated RBC % Cancelled 01/26/19 04:19 Hypersegmented Polys Cancelled 01/26/19 04:19 Smudge Cells Cancelled 01/26/19 04:19 Toxic Granulation Cancelled 01/26/19 04:19 Dohle Bodies Cancelled 01/26/19 04:19 Rina Rods Cancelled 01/26/19 04:19 Platelet Estimate Normal (NORMAL) 01/24/19 04:50 Plt Clumps, EDTA Cancelled 01/26/19 04:19 Large Platelets Present 01/24/19 04:50 Giant Platelets Cancelled 01/26/19 04:19 RBC Morphology Cancelled 01/26/19 04:19 Polychromasia Cancelled 01/26/19 04:19 Hypochromasia (manual) Cancelled 01/26/19 04:19 Poikilocytosis (manual Cancelled 01/26/19 04:19 Basophilic Stippling Cancelled 01/26/19 04:19 Anisocytosis (manual) Slight 01/24/19 04:50 Microcytosis (manual) Cancelled 01/26/19 04:19 Macrocytosis (manual) Cancelled 01/26/19 04:19 Spherocytes Cancelled 01/26/19 04:19 Sickle Cells Cancelled 01/26/19 04:19 Target Cells Cancelled 01/26/19 04:19 Tear Drop Cells Cancelled 01/26/19 04:19 Ovalocytes Moderate 01/24/19 04:50 Stomatocytes Cancelled 01/26/19 04:19 Helmet Cells Cancelled 01/26/19 04:19 [place] Bodies Cancelled 01/26/19 04:19 Janette Cells Cancelled 01/26/19 04:19 Acanthocytes (Spur) Cancelled 01/26/19 04:19 Rouleaux Cancelled 01/26/19 04:19 Schistocytes Cancelled 01/26/19 04:19 PT 11.2 Seconds (9.8-13.1) 01/24/19 04:50 INR 1.0 01/24/19 04:50 APTT 26.2 Seconds (25.6-37.1) 01/24/19 04:50 pCO2 57 mm/Hg (35-45) H 01/27/19 15:20 pO2 60 mm/Hg (80-100) L 01/27/19 15:20 HCO3 35.2 mmol/L (21-28) H 01/27/19 15:20 ABG pH 7.45 (7.35-7.45) 01/27/19 15:20 ABG Total CO2 41.3 mmol/L (22-28) H 01/27/19 15:20 ABG O2 Saturation 92.2 % (95-98) L 01/27/19 15:20 ABG O2 Content 15.0 ML/dL (15-23) 01/27/19 15:20 ABG Base Excess 13.4 mmol/L (-2.0-3.0) H 01/27/19 15:20 ABG Hemoglobin 11.7 g/dL (11.7-17.4) 01/27/19 15:20 ABG Carboxyhemoglobin 0.5 % (0.5-1.5) 01/27/19 15:20 POC ABG HHb (Measured) 7.7 % (0.0-5.0) H 01/27/19 15:20 ABG Methemoglobin 0.5 % (0.0-3.0) 01/27/19 15:20 ABG O2 Capacity 16.3 mL/dL (16-24) 01/27/19 15:20 Pancho Test Yes 01/27/19 15:20 ABG Potassium 4.6 mmol/L (3.6-5.2) 01/26/19 05:06 VBG pH 7.41 (7.32-7.43) 01/23/19 01:22 VBG pCO2 45 mmHg (40-60) 01/23/19 01:22 VBG HCO3 25.8 mmol/L 01/23/19 01:22 VBG Total CO2 29.9 mmol/L (22-28) H 01/23/19 01:22 VBG O2 Sat (Calc) 38.5 % (40-65) L 01/23/19 01:22 VBG Base Excess 3.2 mmol/L (0.0-2.0) H 01/23/19 01:22 VBG Potassium 4.0 mmol/L (3.6-5.2) 01/23/19 01:22 A-a O2 Difference 68.0 mm/Hg 01/27/19 15:20 Hgb O2 Saturation 91.2 % (95.0-98.0) L 01/27/19 15:20 Sodium 138.0 mmol/L (132-148) 01/26/19 05:06 Chloride 108.0 mmol/L (98-107) H 01/26/19 05:06 Glucose 218 mg/dL (65-105) H 01/26/19 05:06 Lactate 1.8 mmol/L (0.7-2.1) 01/26/19 05:06 Vent Mode A/c 01/26/19 05:06 Mechanical Rate 12 01/26/19 05:06 FiO2 28.0 % 01/27/19 15:20 Tidal Volume 400 01/26/19 05:06 PEEP 5 01/26/19 05:06 Crit Value Called To Isak hicks rn 01/25/19 05:01 Crit Value Called By 333 01/25/19 05:01 Crit Value Read Back Y 01/25/19 05:01 Blood Gas Notified Time 519 01/25/19 05:01 Sodium 132 mmol/l (132-148) 01/28/19 04:50 Potassium 3.4 MMOL/L (3.6-5.0) L 01/28/19 04:50 Chloride 94 mmol/L (98-107) L 01/28/19 04:50 Carbon Dioxide 36 mmol/L (22-30) H 01/28/19 04:50 Anion Gap 5 (10-20) L 01/28/19 04:50 BUN 14 mg/dl (7-17) 01/28/19 04:50 Creatinine 0.4 mg/dl (0.7-1.2) L 01/28/19 04:50 Est GFR ( Amer) > 60 01/28/19 04:50 Est GFR (Non-Af Amer) > 60 01/28/19 04:50 POC Glucose (mg/dL) 170 mg/dL (65-110) H 01/28/19 05:06 Random Glucose 163 mg/dL (65-105) H 01/28/19 04:50 Calcium 8.4 mg/dL (8.4-10.2) 01/28/19 04:50 Total Bilirubin 0.3 mg/dl (0.2-1.3) 01/24/19 04:50 AST 30 U/L (14-36) 01/24/19 04:50 ALT 28 U/L (9-52) 01/24/19 04:50 Alkaline Phosphatase 67 U/L (38-126) 01/24/19 04:50 Total Protein 6.8 G/DL (6.3-8.2) 01/24/19 04:50 Albumin 3.8 g/dL (3.5-5.0) 01/24/19 04:50 Globulin 3.0 gm/dL (2.2-3.9) 01/24/19 04:50 Albumin/Globulin Ratio 1.2 (1.0-2.1) 01/24/19 04:50 Procalcitonin < 0.05 NG/ML (0.19-0.49) L 01/23/19 13:37 Arterial Blood Potassium 4.6 mmol/L (3.6-5.2) 01/26/19 05:06 Venous Blood Potassium 4.0 mmol/L (3.6-5.2) 01/23/19 01:22 Vancomycin Trough 9.6 ug/mL (5.0-10.0) 01/26/19 04:19 - Hospital Course Hospital Course: 63 yr old F admitted for tongue swelling and difficulty swallowing. Patient was intubated electively for airway protection. CT neck showed retropharyngeal edema with compressive effects on the airway displaced to the right side, possible cellulitis/abscess. Patient was treated with IV antibiotics (clindamycin, vancomycin, unasyn) for 6 days. ENT was consulted and Direct laryngoscopy was negative for masses or lesions. Patients home medication of Enalapril was discontinued as it may have caused the angioedema. Norvasc 5mg PO QD was started. Patient was successfully extubated on day 4 of admission, remained on supplemental oxygen via nasal cannula x 2 days and weaned off. Patient currently has normal O2 saturation on room air and is tolerating PO diet. Patient was evaluated by physical therapy and recommendation is for TCU. Patient is stable for transfer to TCU. - Date & Time of H&P Date of H&P: 01/23/19 Time of H&P: 08:54 Discharge Exam - Head Exam Head Exam: ATRAUMATIC, NORMOCEPHALIC - Eye Exam Eye Exam: EOMI - ENT Exam ENT Exam: Mucous Membranes Moist - Respiratory Exam Respiratory Exam: NORMAL BREATHING PATTERN. absent: Rales, Rhonchi - Cardiovascular Exam Cardiovascular Exam: REGULAR RHYTHM, +S1, +S2 - GI/Abdominal Exam GI & Abdominal Exam: Normal Bowel Sounds, Soft. absent: Tenderness - Extremities Exam Extremities exam: pedal pulses present Additional comments: mild swelling in area of right medial malleolus - Neurological Exam Neurological exam: Alert, CN II-XII Intact, Oriented x3 - Psychiatric Exam Psychiatric exam: Normal Affect, Normal Mood - Skin Skin Exam: Dry, Warm Discharge Plan - Discharge Medications Prescriptions: amLODIPine [Norvasc] 5 mg PO DAILY #30 tab Aspirin/Dipyridamole [Aggrenox 25-200 mg] 1 ea PO BID #60 cap Atorvastatin [Lipitor] 40 mg PO HS #30 tab Darunavir [Prezista] 800 mg PO HS #30 tab DULoxetine [Cymbalta] 60 mg PO DAILY #30 ecc Emtricitabine/Tenofovir Diso [Truvada 200 MG-300 MG] 1 tab PO HS #30 tab Gabapentin [Neurontin] 800 mg PO TID #90 tab QUEtiapine [Seroquel] 100 mg PO HS #30 tab Ritonavir [Norvir] 100 mg PO HS #30 tab - Follow Up Plan Condition: GUARDED Disposition: REHAB FACILITY/REHAB UNIT Patient education suggested?: Yes Instructions: Angioedema (DC), Hypertension (DC), Hypertension (GEN) Additional Instructions: Patient stable for transfer to TCU for continued PT/OT Referrals: Sue Rizo MD [Provisional Staff] - Frederick Gonzalez DPM [Non-Staff] - Clinical Quality Measures - CQM - Heart Failure Ejection Fraction: Less Than 40 % JESSICA Inhibitor Prescribed: No Contraindication/Reason for not providing: possible cause of angioedema Beta-Vy Prescribed: None (hx of bradycardia) Contraindication/Reason for not providing: hx bradycardia Angiotensin II Receptor Vy Prescribed: No Contraindication/Reason for not providing: possible adverse effect of angioedema AnticoagulationTherapy for Atrial Fibrillation/Atrialflutter: No Contraindication/Reason for not providing: not indicated Aldosterone Antagonist Prescribed: No Contraindication/Reason for not providing: not indicated Hydralazine Nitrate Prescribed: No Contraindication/Reason for not providing: not indicated Implantable Cardioverter Defibrillator Therapy: No Contraindication/Reason for not providing: not indicated Cardiac Resynchronization Therapy Prescribed: No Contraindication/Reason for not providing: not indicated Will be discharged to: Nursing Home Facility (patient going to TCU for recommended time; follow up appt made with her PCP Dr Rizo for 02/16/19 at 2pm) <Muriel Domingo - Last Filed: 01/28/19 13:59> Provider - Provider Date of Admission: 01/23/19 04:55 Attending physician: Mikal Lea Consults: 01/23/19 04:51 Critical Care Consult Stat Comment: Consulting Provider: Mikal Lea Consulting Physician: Mikal Lea Reason for Consult: airway compromise 01/23/19 04:59 Otolaryngology Consult Stat Consulting Provider: Tyrel Gonsalves Consulting Physician: Tyrel Gonsalves Reason for Consult: tonsillar and throat swelling with airway compromise Additional Comments: Intubated for airway protection 01/23/19 07:39 Nursing Referral for Wound Care Routine Comment: Physician Instructions: Reason For Exam: protocol 01/23/19 08:40 Infectious Disease Consult Routine Comment: Consulting Provider: Rubén Cowan Consulting Physician: Rubén Cowan Reason for Consult: HIV +, ? retropharyngeal celluitis 01/23/19 10:30 Pastoral Care Referral Routine Comment: Physician Instructions: Reason For Exam: protocol Hospital Course - Lab Results Lab Results: Micro Results 01/23/19 13:37 Blood-Venous Blood Culture - Final NO GROWTH AFTER 5 DAYS 01/23/19 13:37 Blood-Venous Gram Stain - Final TEST NOT PERFORMED 01/23/19 13:37 Blood-Venous Blood Culture - Final NO GROWTH AFTER 5 DAYS 01/23/19 13:37 Blood-Venous Gram Stain - Final TEST NOT PERFORMED 01/23/19 17:01 Nose MRSA Culture (Admit) - Final MRSA NOT DETECTED Most Recent Lab Values WBC 6.4 K/uL (4.8-10.8) 01/27/19 05:30 RBC 3.45 Mil/uL (3.80-5.20) L 01/27/19 05:30 Hgb 11.4 g/dL (12.0-16.0) L 01/27/19 05:30 Hct 34.1 % (34.0-47.0) 01/27/19 05:30 MCV 98.7 fl (81.0-99.0) 01/27/19 05:30 MCH 33.0 pg (27.0-31.0) H 01/27/19 05:30 MCHC 33.4 g/dL (33.0-37.0) 01/27/19 05:30 RDW 15.3 % (11.5-14.5) H 01/27/19 05:30 Plt Count 242 K/uL (130-400) 01/27/19 05:30 MPV 9.1 fl (7.2-11.7) 01/26/19 04:19 Neut % (Auto) 91.0 % (50.0-75.0) H 01/26/19 04:19 Lymph % (Auto) 3.0 % (20.0-40.0) L 01/26/19 04:19 [place] % (Auto) 6.0 % (0.0-10.0) 01/26/19 04:19 Eos % (Auto) 0.0 % (0.0-4.0) 01/26/19 04:19 Baso % (Auto) 0.0 % (0.0-2.0) 01/26/19 04:19 Neut # (Auto) 5.2 K/uL (1.8-7.0) 01/26/19 04:19 Lymph # (Auto) 0.2 K/uL (1.0-4.3) L 01/26/19 04:19 [place] # (Auto) 0.3 K/uL (0.0-0.8) 01/26/19 04:19 Eos # (Auto) 0.0 K/uL (0.0-0.7) 01/26/19 04:19 Baso # (Auto) 0.0 K/uL (0.0-0.2) 01/26/19 04:19 Total Counted Cancelled 01/26/19 04:19 Neutrophils % (Manual) 89 % (42-75) H 01/24/19 04:50 Band Neutrophils % Cancelled 01/26/19 04:19 Lymphocytes % (Manual) 8 % (20-50) L 01/24/19 04:50 Reactive Lymphs % Cancelled 01/26/19 04:19 Monocytes % (Manual) 3 % (0-10) 01/24/19 04:50 Eosinophils % (Manual) Cancelled 01/26/19 04:19 Basophils % (Manual) Cancelled 01/26/19 04:19 Metamyelocytes % Cancelled 01/26/19 04:19 Myelocytes % Cancelled 01/26/19 04:19 Promyelocytes % Cancelled 01/26/19 04:19 Blast Cells % Cancelled 01/26/19 04:19 Plasma Cell % (Manual) Cancelled 01/26/19 04:19 Nucleated RBC % Cancelled 01/26/19 04:19 Hypersegmented Polys Cancelled 01/26/19 04:19 Smudge Cells Cancelled 01/26/19 04:19 Toxic Granulation Cancelled 01/26/19 04:19 Dohle Bodies Cancelled 01/26/19 04:19 Rina Rods Cancelled 01/26/19 04:19 Platelet Estimate Normal (NORMAL) 01/24/19 04:50 Plt Clumps, EDTA Cancelled 01/26/19 04:19 Large Platelets Present 01/24/19 04:50 Giant Platelets Cancelled 01/26/19 04:19 RBC Morphology Cancelled 01/26/19 04:19 Polychromasia Cancelled 01/26/19 04:19 Hypochromasia (manual) Cancelled 01/26/19 04:19 Poikilocytosis (manual Cancelled 01/26/19 04:19 Basophilic Stippling Cancelled 01/26/19 04:19 Anisocytosis (manual) Slight 01/24/19 04:50 Microcytosis (manual) Cancelled 01/26/19 04:19 Macrocytosis (manual) Cancelled 01/26/19 04:19 Spherocytes Cancelled 01/26/19 04:19 Sickle Cells Cancelled 01/26/19 04:19 Target Cells Cancelled 01/26/19 04:19 Tear Drop Cells Cancelled 01/26/19 04:19 Ovalocytes Moderate 01/24/19 04:50 Stomatocytes Cancelled 01/26/19 04:19 Helmet Cells Cancelled 01/26/19 04:19 [place] Bodies Cancelled 01/26/19 04:19 [place] Cells Cancelled 01/26/19 04:19 Acanthocytes (Spur) Cancelled 01/26/19 04:19 Rouleaux Cancelled 01/26/19 04:19 Schistocytes Cancelled 01/26/19 04:19 PT 11.2 Seconds (9.8-13.1) 01/24/19 04:50 INR 1.0 01/24/19 04:50 APTT 26.2 Seconds (25.6-37.1) 01/24/19 04:50 pCO2 57 mm/Hg (35-45) H 01/27/19 15:20 pO2 60 mm/Hg (80-100) L 01/27/19 15:20 HCO3 35.2 mmol/L (21-28) H 01/27/19 15:20 ABG pH 7.45 (7.35-7.45) 01/27/19 15:20 ABG Total CO2 41.3 mmol/L (22-28) H 01/27/19 15:20 ABG O2 Saturation 92.2 % (95-98) L 01/27/19 15:20 ABG O2 Content 15.0 ML/dL (15-23) 01/27/19 15:20 ABG Base Excess 13.4 mmol/L (-2.0-3.0) H 01/27/19 15:20 ABG Hemoglobin 11.7 g/dL (11.7-17.4) 01/27/19 15:20 ABG Carboxyhemoglobin 0.5 % (0.5-1.5) 01/27/19 15:20 POC ABG HHb (Measured) 7.7 % (0.0-5.0) H 01/27/19 15:20 ABG Methemoglobin 0.5 % (0.0-3.0) 01/27/19 15:20 ABG O2 Capacity 16.3 mL/dL (16-24) 01/27/19 15:20 Pancho Test Yes 01/27/19 15:20 ABG Potassium 4.6 mmol/L (3.6-5.2) 01/26/19 05:06 VBG pH 7.41 (7.32-7.43) 01/23/19 01:22 VBG pCO2 45 mmHg (40-60) 01/23/19 01:22 VBG HCO3 25.8 mmol/L 01/23/19 01:22 VBG Total CO2 29.9 mmol/L (22-28) H 01/23/19 01:22 VBG O2 Sat (Calc) 38.5 % (40-65) L 01/23/19 01:22 VBG Base Excess 3.2 mmol/L (0.0-2.0) H 01/23/19 01:22 VBG Potassium 4.0 mmol/L (3.6-5.2) 01/23/19 01:22 A-a O2 Difference 68.0 mm/Hg 01/27/19 15:20 Hgb O2 Saturation 91.2 % (95.0-98.0) L 01/27/19 15:20 Sodium 138.0 mmol/L (132-148) 01/26/19 05:06 Chloride 108.0 mmol/L (98-107) H 01/26/19 05:06 Glucose 218 mg/dL (65-105) H 01/26/19 05:06 Lactate 1.8 mmol/L (0.7-2.1) 01/26/19 05:06 Vent Mode A/c 01/26/19 05:06 Mechanical Rate 12 01/26/19 05:06 FiO2 28.0 % 01/27/19 15:20 Tidal Volume 400 01/26/19 05:06 PEEP 5 01/26/19 05:06 Crit Value Called To Isak hicks rn 01/25/19 05:01 Crit Value Called By 333 01/25/19 05:01 Crit Value Read Back Y 01/25/19 05:01 Blood Gas Notified Time 519 01/25/19 05:01 Sodium 132 mmol/l (132-148) 01/28/19 04:50 Potassium 3.4 MMOL/L (3.6-5.0) L 01/28/19 04:50 Chloride 94 mmol/L (98-107) L 01/28/19 04:50 Carbon Dioxide 36 mmol/L (22-30) H 01/28/19 04:50 Anion Gap 5 (10-20) L 01/28/19 04:50 BUN 14 mg/dl (7-17) 01/28/19 04:50 Creatinine 0.4 mg/dl (0.7-1.2) L 01/28/19 04:50 Est GFR ( Amer) > 60 01/28/19 04:50 Est GFR (Non-Af Amer) > 60 01/28/19 04:50 POC Glucose (mg/dL) 170 mg/dL (65-110) H 01/28/19 05:06 Random Glucose 163 mg/dL (65-105) H 01/28/19 04:50 Calcium 8.4 mg/dL (8.4-10.2) 01/28/19 04:50 Total Bilirubin 0.3 mg/dl (0.2-1.3) 01/24/19 04:50 AST 30 U/L (14-36) 01/24/19 04:50 ALT 28 U/L (9-52) 01/24/19 04:50 Alkaline Phosphatase 67 U/L (38-126) 01/24/19 04:50 Total Protein 6.8 G/DL (6.3-8.2) 01/24/19 04:50 Albumin 3.8 g/dL (3.5-5.0) 01/24/19 04:50 Globulin 3.0 gm/dL (2.2-3.9) 01/24/19 04:50 Albumin/Globulin Ratio 1.2 (1.0-2.1) 01/24/19 04:50 Procalcitonin < 0.05 NG/ML (0.19-0.49) L 01/23/19 13:37 Arterial Blood Potassium 4.6 mmol/L (3.6-5.2) 01/26/19 05:06 Venous Blood Potassium 4.0 mmol/L (3.6-5.2) 01/23/19 01:22 Vancomycin Trough 9.6 ug/mL (5.0-10.0) 01/26/19 04:19 Attending/Attestation - Attestation I have personally seen and examined this patient.: Yes I have fully participated in the care of the patient.: Yes I have reviewed all pertinent clinical information, including history, physical exam and plan: Yes Notes (Text): 1.Dysphagia/angioedema /possible allergic reaction, Abscess ruled out 2.Retropharyngeal edema 3.HIV - not AIDS . on HAART meds 4.HTN- discontinued ACEI since patient had angioedema.Strated Norvasc low dose 5.Dyslipidemia- on statin 6.Mild anemia- dilutional 7. Depression - on Cymbalta and Seroquel 8.DVT prophylaxis- Lovenox 9. Smoker - on Nicotine patch 10.Chronic CHF systolic dysfunction,compensated 11. Hypokalemia -Pt was intubated for airway protection, extubated, now on 2 liters NC -ENT consul;jeferson - Laryngoscopy done - no abscess, no edema noted - received Solumedrol - now tapered off - JESSICA inhibitor d/c - pt also empirically received IV antibiotics - Clinda, Unasyn and Vanco -will d/c pt to TCU for 3 more days of IV abx - deconditioned , feels weak, - PT rec TCU
--- NOTE | 2019-01-28 15:03 | PQF ---
PROVIDER RESPONSE TEXT: Bipolar depression, chronic, stable REVIEWER QUERY TEXT: Depression Type Physician?s Documentation Request This Form is Not a Permanent Document in the Medical Record Pt Name: DEVI DEL ROSARIO MR #: [id number] Payor: MEDICAID HMO Unit/Bed: [id number] Adm Date: 01/23/2019 4:55:00 AM Reviewer: Chula Delarosa Ext. Query Date: 01/28/2019 8:50:13 AM Depression Type [id number] By submitting this query, we are merely seeking further clarification of documentation to accurately reflect all conditions that you are monitoring, evaluating, treating or that extend the hospitalizati on or utilize additional resources of care. Please utilize your independent clinical judgment when ad dressing the question(s) below. Dear Doctor Nancie Silva, The patient?s Clinical Indicators include: - Depression is documented in the Medical Record. Please specify the type Such as: -- Agitated depression -- Anxiety depression, mild or not persistent -- Anxiety depression, persistent -- Hysterical depression -- Major depression (Please specify severity - mild, moderate, severe) -- Bipolar depression -- Reactive -- Situational / Grief reaction -- Other, please specify H and P and progress notes include: Depression - cont Cymbalta and Seroquel PLEASE DOCUMENT ANY ADDITIONAL DIAGNOSES AND/OR SPECIFICITY IN THE PROGRESS NOTES AND/OR DISCHARGE MENG MMARY. Clinically unable to determine/unknown Disagree with the above request Need to discuss Query created by: Chula Delarosa on 01/28/2019 8:50 AM Electronically signed by: Nancie Silva 01/28/2019 3:00 PM
[2019-01-28 15:35] VITALS: RESP 17
[2019-01-28 19:24] VITALS: BP 153/75; PULSE 61; TEMP 98.7; O2SAT 99
[2019-01-28] MEDS: Emtricitabine-Tenofovir 200 mg-300 mg Tab PO SCH (21:42)
== END 2019-01-29 00:18 | DRG 582 ==
LOC: H.ER 00:15 → H.ERHOLD 04:55 → H.ICU/CCU 07:05 → H.TEL 01-27 12:15
PROVIDERS: ADMIT Internal Medicine; ATTEND Internal Medicine
PROC: 5A1945Z Respiratory Ventilation, 24-96 Consecutive Hours (ICD-10-PCS; 2019-01-23)
PROC: 0BH17EZ Insertion of Endotracheal Airway into Trachea, Via Natural or Artificial Opening (ICD-10-PCS; 2019-01-23)
PROC: 0CJS8ZZ Inspection of Larynx, Via Natural or Artificial Opening Endoscopic (ICD-10-PCS; principal; 2019-01-25)
DX: T78.3XXA Angioneurotic edema, initial encounter (principal); I50.22 Chronic systolic (congestive) heart failure; J39.0 Retropharyngeal and parapharyngeal abscess; I43 Cardiomyopathy in diseases classified elsewhere; J43.9 Emphysema, unspecified; E87.6 Hypokalemia; I13.0 Hypertensive heart and chronic kidney disease with heart failure and stage 1 through stage 4 chronic kidney disease, or unspecified chronic kidney disease; J98.11 Atelectasis; N18.9 Chronic kidney disease, unspecified; T38.0X5A Adverse effect of glucocorticoids and synthetic analogues, initial encounter; Z21 Asymptomatic human immunodeficiency virus [HIV] infection status; I25.5 Ischemic cardiomyopathy; D64.9 Anemia, unspecified; E78.00 Pure hypercholesterolemia, unspecified; E78.5 Hyperlipidemia, unspecified; F17.200 Nicotine dependence, unspecified, uncomplicated; F31.30 Bipolar disorder, current episode depressed, mild or moderate severity, unspecified; J34.2 Deviated nasal septum; J39.2 Other diseases of pharynx; M81.0 Age-related osteoporosis without current pathological fracture; Z79.1 Long term (current) use of non-steroidal anti-inflammatories (NSAID); Z86.73 Personal history of transient ischemic attack (TIA), and cerebral infarction without residual deficits; K14.0 Glossitis; M19.90 Unspecified osteoarthritis, unspecified site; Z79.899 Other long term (current) drug therapy; M54.9 Dorsalgia, unspecified

== ENCOUNTER 2019-01-28 15:14 | Inpatient (IN) | payer MEDICAID ==
[2019-01-29] MEDS ORDERED: Patient's Own Med (Clindamycin In 0.9 % Sod Chlor [Clindamycin 600 Mg/50 Ml-Ns] 600 MG) IV SCH (01:00)
[2019-01-29 02:11] VITALS: BMI 20.9
[2019-01-29 04:17] VITALS: RESP 20
--- NOTE | 2019-01-29 07:21 | CP.PCM.HP ---
<Nancie Silva - Last Filed: 01/29/19 09:36> History of Present Illness - History of Present Illness History of Present Illness: 63 yr old F admitted to TCU for deconditioning. Patient was discharged from telemetry yesterday after evaluation for tongue swelling and difficulty swallowing. Patient was intubated electively for airway protection. CT neck showed retropharyngeal edema with compressive effects on the airway displaced to the right side, possible cellulitis/abscess. Patient was treated with IV antibiotics (clindamycin, vancomycin, unasyn) for 6 days. ENT was consulted and Direct laryngoscopy was negative for masses or lesions. Patients home medication of Enalapril was discontinued as it may have caused the angioedema. Norvasc 5mg PO QD was started. Patient was successfully extubated, remained on supplemental oxygen via nasal cannula x 2 days and weaned off. Patient currently tolerating PO diet, denies chest pain/SOB or palpitations. Patient was evaluated by physical therapy and recommendation is for TCU. Patient is stable for PT/OT. Present on Admission - Present on Admission Any Indicators Present on Admission: No History of DVT/PE: No History of Uncontrolled Diabetes: No Urinary Catheter: No Decubitus Ulcer Present: No Review of Systems - Constitutional Constitutional: absent: Chills, Weakness - EENT Eyes: absent: Blurred Vision Ears: absent: Dizziness Nose/Mouth/Throat: absent: Sore Throat, Neck Mass - Cardiovascular Cardiovascular: absent: Chest Pain, Dyspnea - Respiratory Respiratory: absent: Cough, Dyspnea - Gastrointestinal Gastrointestinal: absent: Nausea, Vomiting - Genitourinary Genitourinary: absent: Dysuria - Musculoskeletal Musculoskeletal: absent: Numbness, Tingling - Neurological Neurological: absent: Confusion - Psychiatric Psychiatric: absent: Anxiety - Endocrine Endocrine: absent: Polydipsia, Polyphagia - Hematologic/Lymphatic Hematologic: absent: Easy Bleeding, Easy Bruising Past Patient History - Infectious Disease Hx of Infectious Diseases: None - Tetanus Immunizations Tetanus Immunization: Unknown - Past Medical History & Family History Past Medical History?: Yes - Past Social History Smoking Status: Light Smoker < 10 Cigarettes Daily - CARDIAC Hx Hypercholesterolemia: Yes Hx Hypertension: Yes - PULMONARY Hx Respiratory Disorders: Yes Hx Emphysema: Yes - NEUROLOGICAL Hx Neurological Disorder: Yes - HEENT Hx Difficulty Chewing: Yes - RENAL Other/Comment: chronic kidney disease - ENDOCRINE/METABOLIC Hx Endocrine Disorders: No - HEMATOLOGICAL/ONCOLOGICAL Hx Human Immunodeficiency Virus (HIV): Yes - INTEGUMENTARY Hx Dermatological Problems: No - MUSCULOSKELETAL/RHEUMATOLOGICAL Hx Falls: No Hx Herniated Disk: Yes - GASTROINTESTINAL Hx Gastrointestinal Disorders: No - GENITOURINARY/GYNECOLOGICAL Hx Genitourinary Disorders: No - PSYCHIATRIC Hx Substance Use: No (unable to assess) - SURGICAL HISTORY Hx Surgeries: Yes Hx Section: Yes (x1) Hx Orthopedic Surgery: Yes - ANESTHESIA Hx Anesthesia Reactions: No (unable assess) Hx Malignant Hyperthermia: No (unable assess) Meds Allergies/Adverse Reactions: Allergies Allergy/AdvReac Type Severity Reaction Status Date / Time No Known Allergies Allergy Verified 01/23/19 00:36 Physical Exam - Constitutional Appears: No Acute Distress - Head Exam Head Exam: ATRAUMATIC, NORMOCEPHALIC - Eye Exam Eye Exam: EOMI - ENT Exam ENT Exam: Mucous Membranes Moist - Respiratory Exam Respiratory Exam: Clear to Auscultation Bilateral, NORMAL BREATHING PATTERN - Cardiovascular Exam Cardiovascular Exam: REGULAR RHYTHM, +S1, +S2 - GI/Abdominal Exam GI & Abdominal Exam: Normal Bowel Sounds, Soft. absent: Tenderness - Extremities Exam Extremities exam: Negative for: calf tenderness - Back Exam Back exam: absent: CVA tenderness (L), CVA tenderness (R) - Neurological Exam Neurological exam: Alert, CN II-XII Intact, Oriented x3 - Psychiatric Exam Psychiatric exam: Normal Affect, Normal Mood - Skin Skin Exam: Dry, Normal Color, Warm Results - Vital Signs Recent Vital Signs: Last Vital Signs Temp Pulse Resp 20 01/28/19 23:56 BP Pulse Ox 95 01/28/19 23:56 - Labs Result Diagrams: 01/29/19 06:55 01/29/19 06:55 Assessment & Plan - Assessment and Plan (Free Text) Assessment: 63 yr old F admitted to TCU for deconditioning requiring PT/OT s/p discharge from telemetry for treatment retropharyngeal edema. Patient remains stable. D irect laryngoscopy negative for masses or lesions. Tolerating PO diet. Abnormal gait, lower extremity weakness -acute, secondary to deconditioning -PT/OT -encourage OOB to chair Retropharyngeal edema -improved, likely angioedema secondary to allergic reaction -ENT consulted: Direct laryngoscopy negative for masses or lesions -afebrile, no antibiotics at this time HIV without AIDS Clinic notes reviewed Last CD4/Viral load 09/2018: 864/<20 -Neg Hep C Ab, GC/Chl and RPR -continue home meds Systolic congestive heart failure, unspecified congestive heart failure chronicity -chronic, stable -Last Echo 2017 EF 35 % -Last stress test Lexicon 2016. -Recently seen by Cardio as outpatient Hypertension -chronic -norvasc 5 mg PO QD -do not resume prior home med: enalapril, may have caused to angioedema -monitor BP Pulmonary emphysema, unspecified emphysema type -chronic, controlled -monitor vital signs Hx of TIA -continue home med aggrenox -DVT prophylaxis -Lovenox 40 mg daily - Date & Time Date: 01/29/19 Time: 07:20 <Muriel Domingo - Last Filed: 01/29/19 14:21> Results - Vital Signs Recent Vital Signs: Last Vital Signs Temp 98.0 F 01/29/19 09:55 Pulse 57 L 01/29/19 09:55 Resp 20 01/29/19 09:55 BP 133/71 01/29/19 09:55 Pulse Ox 100 01/29/19 09:55 - Labs Result Diagrams: 01/29/19 06:55 01/29/19 06:55 Labs: Laboratory Results - last 24 hr 01/29/19 01/29/19 06:55 06:55 WBC 5.9 RBC 3.99 Hgb 13.0 Hct 38.8 MCV 97.3 MCH 32.5 H MCHC 33.4 RDW 14.9 H Plt Count 225 MPV 9.2 Neut % (Auto) 69.7 Lymph % (Auto) 16.9 L [place] % (Auto) 13.1 H Eos % (Auto) 0.1 Baso % (Auto) 0.2 Neut # (Auto) 4.1 Lymph # (Auto) 1.0 [place] # (Auto) 0.8 Eos # (Auto) 0.0 Baso # (Auto) 0.0 Sodium 133 Potassium 3.7 Chloride 96 L Carbon Dioxide 31 H Anion Gap 10 BUN 18 H Creatinine 0.4 L Est GFR ( Amer) > 60 Est GFR (Non-Af Amer) > 60 Random Glucose 128 H Calcium 8.2 L Attending/Attestation - Attestation I have personally seen and examined this patient.: Yes I have fully participated in the care of the patient.: Yes I have reviewed all pertinent clinical information: Yes Notes (Text): 1. Pharyngeal, Retropharyngeal and Tonsillar Edema with Dyspgagia poss due to angioedema / allergic reaction Abscess ruled out 2.HIV asymptomatic 3. HTN 4.Dyslipidemia- on statin 5. Depression - on Cymbalta and Seroquel 6.DVT prophylaxis- Lovenox 7. Smoker - on Nicotine patch 8.Chronic CHF systolic dysfunction,compensated - JESSICA inhibitor d/c due to poss ACER induced Angioedema , Norvasc started - pt empirically received IV antibiotics - Clinda, Unasyn and Vanco - now off abx - cont HAART - deconditioned , feels weak, - PT rec TCU
[2019-01-29 07:48] LABS: BLOOD UREA NITROGEN 18 mg/dl (7-17); CALCIUM 8.2 mg/dL (8.4-10.2); GFR NON-AFRICAN AMERICAN > 60
[2019-01-29 07:50] LABS: BASO % 0.2 % (0.0-2.0); EOS % 0.1 % (0.0-4.0); LYMPH % 16.9 % (20.0-40.0); MEAN CELL VOLUME 97.3 fl (81.0-99.0); MEAN CORPUSCULAR HEMOGLOBIN 32.5 pg (27.0-31.0); MEAN CORPUSCULAR HGB CONC 33.4 g/dL (33.0-37.0); MEAN PLATELET VOLUME 9.2 fl (7.2-11.7); MONO # 0.8 K/uL (0.0-0.8); MONO % 13.1 % (0.0-10.0); NEUT # 4.1 K/uL (1.8-7.0); NEUT % 69.7 % (50.0-75.0); NRBC % 0.2 % (0.0-0.0); RBC 3.99 Mil/uL (3.80-5.20); RED CELL DISTRIBUTION WIDTH 14.9 % (11.5-14.5); WHITE BLOOD COUNT 5.9 K/uL (4.8-10.8)
[2019-01-29] MEDS: Aspirin-Dipyridamole 200-25 mg ER Cap PO SCH ×2 (09:27→17:26)
[2019-01-29] MEDS: Enoxaparin 40 mg Syringe SC SCH (09:27)
[2019-01-29] MEDS: Emtricitabine-Tenofovir 200 mg-300 mg Tab PO SCH (21:00)
[2019-01-30] MEDS: Enoxaparin 40 mg Syringe SC SCH (08:06)
[2019-01-30] MEDS: Aspirin-Dipyridamole 200-25 mg ER Cap PO SCH ×2 (08:07→17:22)
[2019-01-30] MEDS: Benzocaine/Menthol (Cepacol) Lozenge PO PRN ×2 (13:28→17:21)
[2019-01-30 19:13] LABS: URINE BILIRUBIN NEGATIVE (NEGATIVE); URINE BLOOD NEGATIVE (NEGATIVE); URINE CLARITY SLIGHTY-CLOUDY (Clear); URINE COLOR YELLOW (YELLOW); URINE GLUCOSE (UA) NEG (NEGATIVE); URINE LEUKOCYTE ESTERASE NEG Leu/uL (Negative); URINE PROTEIN NEGATIVE (NEGATIVE); URINE UROBILINOGEN 0.2-1.0 mg/dL (0.2-1.0)
[2019-01-30] MEDS: Emtricitabine-Tenofovir 200 mg-300 mg Tab PO SCH (21:25)
[2019-01-30] MEDS: Tmp-Smz 800 mg-160 mg DS Tab PO SCH (21:27)
[2019-01-31] MEDS: Enoxaparin 40 mg Syringe SC SCH (08:03)
[2019-01-31] MEDS: Aspirin-Dipyridamole 200-25 mg ER Cap PO SCH ×2 (08:06→16:54)
[2019-01-31 08:12] LABS: HEMOGLOBIN 14.3 g/dL (12.0-16.0); MEAN CELL VOLUME 98.4 fl (81.0-99.0); MEAN CORPUSCULAR HEMOGLOBIN 32.6 pg (27.0-31.0); MEAN CORPUSCULAR HGB CONC 33.2 g/dL (33.0-37.0); RBC 4.37 Mil/uL (3.80-5.20); RED CELL DISTRIBUTION WIDTH 15.2 % (11.5-14.5); WHITE BLOOD COUNT 7.7 K/uL (4.8-10.8)
[2019-01-31] MEDS: Tmp-Smz 800 mg-160 mg DS Tab PO SCH ×2 (08:16→21:22)
[2019-01-31 08:30] LABS: BLOOD UREA NITROGEN 13 mg/dl (7-17); CALCIUM 9.2 mg/dL (8.4-10.2); GFR NON-AFRICAN AMERICAN > 60
[2019-01-31] MEDS: Emtricitabine-Tenofovir 200 mg-300 mg Tab PO SCH (21:25)
[2019-01-31] MEDS: Benzocaine/Menthol (Cepacol) Lozenge PO PRN (21:28)
[2019-02-01] MEDS: Tmp-Smz 800 mg-160 mg DS Tab PO SCH ×2 (08:10→22:29)
[2019-02-01] MEDS: Aspirin-Dipyridamole 200-25 mg ER Cap PO SCH ×2 (08:11→16:54)
[2019-02-01] MEDS: Enoxaparin 40 mg Syringe SC SCH (08:13)
[2019-02-01] MEDS: Benzocaine/Menthol (Cepacol) Lozenge PO PRN ×3 (09:26→16:53)
--- NOTE | 2019-02-01 12:08 | CP.PCM.PN ---
Subjective - Date & Time of Evaluation Date of Evaluation: 02/01/19 Time of Evaluation: 12:08 - Subjective Subjective: hd stable no complaints Objective - Vital Signs/Intake and Output Vital Signs (last 24 hours): Temp Pulse Resp BP Pulse Ox 97.4 F L 60 20 132/67 99 02/01/19 10:43 02/01/19 10:43 02/01/19 10:43 02/01/19 10:43 02/01/19 10:43 Gen: WDWN, cooperative HEENT: NCAT, PERRL HEART: RRR S1S2 LUNG: CTAB NO WRR ABD: SOFT NT ND NO MASS EXT: WARM, WELL PERFUSED SKIN: WARM, NO RASHES NEURO: AWAKE, ALERT PSYCH: NORMAL MOOD, NORMAL AFFECT - Medications Medications: Current Medications Acetaminophen (Tylenol 325mg Tab) 650 mg PO Q4 PRN PRN Reason: Pain, Mild (1-3) Amlodipine Besylate (Norvasc) 5 mg PO DAILY [facility] Last Admin: 02/01/19 08:11 Dose: 5 mg Ascorbic Acid (Vitamin C 500 Mg Tab) 1,000 mg PO DAILY [facility] Last Admin: 02/01/19 08:12 Dose: 1,000 mg Atorvastatin Calcium (Lipitor) 40 mg PO HS [facility] Last Admin: 01/31/19 21:23 Dose: 40 mg Benzocaine/Menthol (Cepacol Sore Throat) 1 donaldo PO Q2 PRN PRN Reason: Sore Throat Last Admin: 02/01/19 09:26 Dose: 1 donaldo Cyclobenzaprine HCl (Flexeril) 10 mg PO DAILY [facility] Last Admin: 02/01/19 08:13 Dose: 10 mg Darunavir (Prezista) 800 mg PO HS [facility]; Protocol Last Admin: 01/31/19 21:25 Dose: 800 mg Dipyridamole/Aspirin (Aggrenox 25-200 Mg) 1 ea PO BID [facility] Last Admin: 02/01/19 08:11 Dose: 1 ea Duloxetine HCl (Cymbalta) 60 mg PO DAILY [facility] Last Admin: 02/01/19 08:10 Dose: 60 mg Emtricitabine/Tenofovir (Truvada 200 Mg-300 Mg) 1 tab PO HS [facility]; Protocol Last Admin: 01/31/19 21:25 Dose: 1 tab Enoxaparin Sodium (Lovenox) 40 mg SC DAILY [facility]; Protocol Last Admin: 02/01/19 08:13 Dose: 40 mg Gabapentin (Neurontin) 800 mg PO TID [facility] Last Admin: 02/01/19 08:10 Dose: 800 mg Ibuprofen (Motrin Tab) 400 mg PO Q4 PRN PRN Reason: Pain, moderate (4-7) Last Admin: 01/31/19 21:23 Dose: 400 mg Ibuprofen (Motrin Tab) 600 mg PO Q6 PRN PRN Reason: Pain, severe (8-10) Last Admin: 01/31/19 13:32 Dose: 600 mg Nicotine (Nicoderm Cq) 1 patch TD DAILY [facility] Last Admin: 02/01/19 08:10 Dose: 1 patch Quetiapine Fumarate (Seroquel) 100 mg PO HS [facility] Last Admin: 01/31/19 21:25 Dose: 100 mg Ritonavir (Norvir) 100 mg PO HS [facility]; Protocol Last Admin: 01/31/19 21:24 Dose: 100 mg Trimethoprim/Sulfamethoxazole (Bactrim Ds Tab) 1 tab PO Q12 [facility]; Protocol Last Admin: 02/01/19 08:10 Dose: 1 tab - Labs Labs: 01/31/19 07:50 01/31/19 07:50 Assessment and Plan - Assessment and Plan (Free Text) Plan: 63 yr old F admitted to TCU for deconditioning requiring PT/OT s/p discharge from telemetry for treatment retropharyngeal edema. Patient remains stable. Direct laryngoscopy negative for masses or lesions. Tolerating PO diet. Abnormal gait, lower extremity weakness -acute, secondary to deconditioning -PT/OT -encourage OOB to chair Retropharyngeal edema -improved, likely angioedema secondary to allergic reaction -ENT consulted: Direct laryngoscopy negative for masses or lesions -afebrile, no antibiotics at this time HIV without AIDS Clinic notes reviewed Last CD4/Viral load 09/2018: 864/<20 -Neg Hep C Ab, GC/Chl and RPR -continue home meds Systolic congestive heart failure, unspecified congestive heart failure chronicity -chronic, stable -Last Echo 2017 EF 35 % -Last stress test Lexicon 2017. -Recently seen by Cardio as outpatient Hypertension -chronic -norvasc 5 mg PO QD -do not resume prior home med: enalapril, may have caused to angioedema -monitor BP Pulmonary emphysema, unspecified emphysema type -chronic, controlled -monitor vital signs Hx of TIA -continue home med aggrenox -DVT prophylaxis -Lovenox 40 mg daily
[2019-02-01] MEDS: Emtricitabine-Tenofovir 200 mg-300 mg Tab PO SCH (22:30)
[2019-02-02] MEDS: Aspirin-Dipyridamole 200-25 mg ER Cap PO SCH ×2 (08:14→17:28)
[2019-02-02] MEDS: Tmp-Smz 800 mg-160 mg DS Tab PO SCH ×2 (08:14→21:32)
[2019-02-02] MEDS: Enoxaparin 40 mg Syringe SC SCH (08:14)
[2019-02-02] MEDS: Benzocaine/Menthol (Cepacol) Lozenge PO PRN (08:16)
[2019-02-02] MEDS: Emtricitabine-Tenofovir 200 mg-300 mg Tab PO SCH (21:32)
[2019-02-02] MEDS ORDERED: Oxycodone/Acetaminophen 5/325 mg Tab PO ONE (21:48)
[2019-02-03] MEDS: Enoxaparin 40 mg Syringe SC SCH (08:27)
[2019-02-03] MEDS: Aspirin-Dipyridamole 200-25 mg ER Cap PO SCH ×2 (08:30→16:11)
[2019-02-03] MEDS: Tmp-Smz 800 mg-160 mg DS Tab PO SCH ×2 (09:30→21:10)
--- NOTE | 2019-02-03 15:01 | CP.PCM.PN ---
Subjective - Date & Time of Evaluation Date of Evaluation: 02/03/19 Time of Evaluation: 12:00 - Subjective Subjective: Patient seen and examined. Still have of pain on swallowing. Also complained of low back pain. Objective - Vital Signs/Intake and Output Vital Signs (last 24 hours): Temp Pulse Resp BP Pulse Ox 97.6 F 61 20 111/68 97 02/03/19 07:54 02/03/19 08:30 02/03/19 07:54 02/03/19 08:30 02/03/19 07:54 - Medications Medications: Current Medications Acetaminophen (Tylenol 325mg Tab) 650 mg PO Q4 PRN PRN Reason: Pain, Mild (1-3) Amlodipine Besylate (Norvasc) 5 mg PO DAILY [facility] Last Admin: 02/03/19 08:30 Dose: 5 mg Ascorbic Acid (Vitamin C 500 Mg Tab) 1,000 mg PO DAILY [facility] Last Admin: 02/03/19 08:27 Dose: 1,000 mg Atorvastatin Calcium (Lipitor) 40 mg PO HS [facility] Last Admin: 02/02/19 21:32 Dose: 40 mg Benzocaine/Menthol (Cepacol Sore Throat) 1 donaldo PO Q2 PRN PRN Reason: Sore Throat Last Admin: 02/02/19 08:16 Dose: 1 donaldo Cyclobenzaprine HCl (Flexeril) 10 mg PO DAILY [facility] Last Admin: 02/03/19 08:31 Dose: 10 mg Darunavir (Prezista) 800 mg PO HS [facility]; Protocol Last Admin: 02/02/19 21:32 Dose: 800 mg Dipyridamole/Aspirin (Aggrenox 25-200 Mg) 1 ea PO BID [facility] Last Admin: 02/03/19 08:30 Dose: 1 ea Duloxetine HCl (Cymbalta) 60 mg PO DAILY [facility] Last Admin: 02/03/19 08:29 Dose: 60 mg Emtricitabine/Tenofovir (Truvada 200 Mg-300 Mg) 1 tab PO HS [facility]; Protocol Last Admin: 02/02/19 21:32 Dose: 1 tab Enoxaparin Sodium (Lovenox) 40 mg SC DAILY [facility]; Protocol Last Admin: 02/03/19 08:27 Dose: 40 mg Gabapentin (Neurontin) 800 mg PO TID [facility] Last Admin: 02/03/19 12:33 Dose: 800 mg Ibuprofen (Motrin Tab) 400 mg PO Q4 PRN PRN Reason: Pain, moderate (4-7) Last Admin: 01/31/19 21:23 Dose: 400 mg Ibuprofen (Motrin Tab) 600 mg PO Q6 PRN PRN Reason: Pain, severe (8-10) Last Admin: 02/01/19 13:26 Dose: 600 mg Nicotine (Nicoderm Cq) 1 patch TD DAILY [facility] Last Admin: 02/03/19 08:28 Dose: 1 patch Oxycodone/Acetaminophen (Percocet 5/325 Mg Tab) 1 tab PO Q6 PRN PRN Reason: Pain, moderate (4-7) Stop: 02/06/19 12:38 Quetiapine Fumarate (Seroquel) 100 mg PO HS [facility] Last Admin: 02/02/19 21:32 Dose: 100 mg Ritonavir (Norvir) 100 mg PO HS [facility]; Protocol Last Admin: 02/02/19 21:32 Dose: 100 mg Trimethoprim/Sulfamethoxazole (Bactrim Ds Tab) 1 tab PO Q12 [facility]; Protocol Last Admin: 02/03/19 09:30 Dose: 1 tab - Labs Labs: 01/31/19 07:50 01/31/19 07:50 - Constitutional Appears: No Acute Distress - Head Exam Head Exam: ATRAUMATIC - Eye Exam Eye Exam: absent: Scleral icterus - ENT Exam ENT Exam: Mucous Membranes Moist - Neck Exam Neck Exam: absent: Meningismus - Respiratory Exam Respiratory Exam: absent: Rales, Rhonchi, Wheezes, Respiratory Distress - Cardiovascular Exam Cardiovascular Exam: REGULAR RHYTHM, +S1, +S2 - GI/Abdominal Exam GI & Abdominal Exam: Soft. absent: Tenderness - Rectal Exam Rectal Exam: Deferred - Neurological Exam Neurological Exam: Alert, Oriented x3 - Psychiatric Exam Psychiatric exam: Normal Affect - Skin Skin Exam: Dry, Intact Assessment and Plan - Assessment and Plan (Free Text) Assessment: 63 yo female with history of HIV initially admitted because of retropharyngeal edema was admitted to TCU on 01/29/2019 to continue PT/OT for deconditioning. 1. Physical Deconditioning continue PT/OT 2. Retropharyngeal edema angioedema likely secondary to allergic reaction 3. HIV continue retroviral medications 4. Systolic CHF stable Last Echo in 2017 EF 35 % 5. Hypertension BP stable continue Norvasc 5 mg PO QD 6. History TIA continue Aggrenox 7. DVT prophylaxis Lovenox 40 mg daily
[2019-02-03] MEDS: Oxycodone/Acetaminophen 5/325 mg Tab PO PRN (18:37)
[2019-02-03] MEDS: Emtricitabine-Tenofovir 200 mg-300 mg Tab PO SCH (21:10)
[2019-02-04] MEDS: Aspirin-Dipyridamole 200-25 mg ER Cap PO SCH ×2 (08:11→16:49)
[2019-02-04] MEDS: Enoxaparin 40 mg Syringe SC SCH (08:12)
[2019-02-04] MEDS: Tmp-Smz 800 mg-160 mg DS Tab PO SCH ×3 (08:20→21:54)
[2019-02-04 16:09] VITALS: O2SAT 98
[2019-02-04] MEDS: Benzocaine/Menthol (Cepacol) Lozenge PO PRN (16:49)
[2019-02-04] MEDS: Oxycodone/Acetaminophen 5/325 mg Tab PO PRN (16:49)
[2019-02-04] MEDS ORDERED: Emtricitabine-Tenofovir 200 mg-300 mg Tab PO SCH (22:00)
[2019-02-05 07:56] VITALS: BP 104/53; PULSE 63; TEMP 97.8
[2019-02-05] MEDS: Aspirin-Dipyridamole 200-25 mg ER Cap PO SCH (09:41)
[2019-02-05] MEDS: Enoxaparin 40 mg Syringe SC SCH ×2 (09:41→09:46)
[2019-02-05] MEDS: Tmp-Smz 800 mg-160 mg DS Tab PO SCH (09:42)
--- NOTE | 2019-02-05 13:42 | CP.PCM.DIS ---
Provider - Provider Date of Admission: 01/28/19 23:56 Attending physician: Mikal Lea Time Spent in preparation of Discharge (in minutes): 25 Diagnosis - Discharge Diagnosis (1) Physical deconditioning Status: Acute Comment: did well with therapy (2) Retropharyngeal abscess Status: Acute Priority: High Comment: improved. completed IV antibiotics. Enalapril DC for possible cause of angioedema (3) HIV infection, asymptomatic Status: Chronic Priority: Low Comment: stable. continue retroviral meds (4) Systolic heart failure Status: Chronic Priority: Low Comment: stable (5) HTN (hypertension) Status: Chronic Priority: Low Comment: BP controlled. on [facility] - Lab Results Lab Results: Micro Results 01/30/19 21:10 Urine,Clean Catch Urine Culture - Final No Growth (<1,000 CFU/ML) Most Recent Lab Values WBC 7.7 K/uL (4.8-10.8) 01/31/19 07:50 RBC 4.37 Mil/uL (3.80-5.20) 01/31/19 07:50 Hgb 14.3 g/dL (12.0-16.0) 01/31/19 07:50 Hct 43.0 % (34.0-47.0) 01/31/19 07:50 MCV 98.4 fl (81.0-99.0) 01/31/19 07:50 MCH 32.6 pg (27.0-31.0) H 01/31/19 07:50 MCHC 33.2 g/dL (33.0-37.0) 01/31/19 07:50 RDW 15.2 % (11.5-14.5) H 01/31/19 07:50 Plt Count 226 K/uL (130-400) 01/31/19 07:50 MPV 9.2 fl (7.2-11.7) 01/29/19 06:55 Neut % (Auto) 69.7 % (50.0-75.0) 01/29/19 06:55 Lymph % (Auto) 16.9 % (20.0-40.0) L 01/29/19 06:55 [place] % (Auto) 13.1 % (0.0-10.0) H 01/29/19 06:55 Eos % (Auto) 0.1 % (0.0-4.0) 01/29/19 06:55 Baso % (Auto) 0.2 % (0.0-2.0) 01/29/19 06:55 Neut # (Auto) 4.1 K/uL (1.8-7.0) 01/29/19 06:55 Lymph # (Auto) 1.0 K/uL (1.0-4.3) 01/29/19 06:55 [place] # (Auto) 0.8 K/uL (0.0-0.8) 01/29/19 06:55 Eos # (Auto) 0.0 K/uL (0.0-0.7) 01/29/19 06:55 Baso # (Auto) 0.0 K/uL (0.0-0.2) 01/29/19 06:55 Sodium 136 mmol/l (132-148) 01/31/19 07:50 Potassium 4.1 MMOL/L (3.6-5.0) 01/31/19 07:50 Chloride 98 mmol/L (98-107) 01/31/19 07:50 Carbon Dioxide 30 mmol/L (22-30) 01/31/19 07:50 Anion Gap 12 (10-20) 01/31/19 07:50 BUN 13 mg/dl (7-17) 01/31/19 07:50 Creatinine 0.6 mg/dl (0.7-1.2) L 01/31/19 07:50 Est GFR ( Amer) > 60 01/31/19 07:50 Est GFR (Non-Af Amer) > 60 01/31/19 07:50 Random Glucose 109 mg/dL (65-105) H 01/31/19 07:50 Calcium 9.2 mg/dL (8.4-10.2) 01/31/19 07:50 Urine Color Yellow (YELLOW) 01/30/19 19:02 Urine Clarity Slighty-cloudy (Clear) 01/30/19 19:02 Urine pH 7.0 (5.0-8.0) 01/30/19 19:02 Ur Specific [place] 1.009 (1.003-1.030) 01/30/19 19:02 Urine Protein Negative mg/dL (NEGATIVE) 05/05/19 19:02 Urine Glucose (UA) Neg mg/dL (NEGATIVE) 01/30/19 19:02 Urine Ketones Negative mg/dL (NEGATIVE) 01/30/19 19:02 Urine Blood Negative (NEGATIVE) 01/30/19 19:02 Urine Nitrate Negative (NEGATIVE) 01/30/19 19:02 Urine Bilirubin Negative (NEGATIVE) 01/30/19 19:02 Urine Urobilinogen 0.2-1.0 mg/dL (0.2-1.0) 01/30/19 19:02 Ur Leukocyte Esterase Neg Sang/uL (Negative) 01/30/19 19:02 Urine RBC (Auto) 1 /hpf (0-3) 01/30/19 19:02 Urine Microscopic WBC 2 /hpf (0-5) 01/30/19 19:02 - Hospital Course Hospital Course: 63 yo female with history of HIV, CHF and HTN was admitted because of retropharyngeal edema and possible abscess. Patient was put on Clindamycin, Vancomycin and Unasyn and Enalapril was DC for possible cause of angioedema. Patient did well but was sent to TCU for further therapy because of physical deconditioning. Discharge Exam - Head Exam Head Exam: ATRAUMATIC - Eye Exam Eye Exam: Normal appearance - ENT Exam ENT Exam: Mucous Membranes Moist - Respiratory Exam Respiratory Exam: absent: Rales, Rhonchi, Wheezes, Respiratory Distress - Cardiovascular Exam Cardiovascular Exam: REGULAR RHYTHM, +S1, +S2 - GI/Abdominal Exam GI & Abdominal Exam: Soft. absent: Tenderness - Rectal Exam Rectal Exam: Deferred - Neurological Exam Neurological exam: Alert, Oriented x3 - Psychiatric Exam Psychiatric exam: Normal Affect - Skin Skin Exam: Dry, Intact Discharge Plan - Discharge Medications Prescriptions: Nicotine 21 mg/24 hr [Nicoderm Cq] 1 patch TD DAILY #30 patch oxyCODONE/Acetaminophen [Percocet 5/325 mg Tab] 1 tab PO Q6 PRN #20 tab PRN Reason: Pain, Moderate (4-7) QUEtiapine [Seroquel] 100 mg PO HS #30 tab - Follow Up Plan Condition: GOOD Disposition: HOME/ ROUTINE Instructions: Peritonsillar Abscess, Adult (DC)
== END 2019-02-05 12:34 | disposition home or self-care (01) | DRG 582 ==
LOC: H.TCU 23:56
PROVIDERS: ADMIT Internal Medicine; ATTEND Internal Medicine
PROC: 3E03329 Introduction of Other Anti-infective into Peripheral Vein, Percutaneous Approach (ICD-10-PCS; principal; 2019-01-28)
PROC: F07M6FZ Therapeutic Exercise Treatment of Musculoskeletal System - Whole Body using Assistive, Adaptive, Supportive or Protective Equipment (ICD-10-PCS; 2019-01-28)
PROC: F08Z4FZ Home Management Treatment using Assistive, Adaptive, Supportive or Protective Equipment (ICD-10-PCS; 2019-01-28)
DX: T78.3XXA Angioneurotic edema, initial encounter (principal); I50.22 Chronic systolic (congestive) heart failure; I13.0 Hypertensive heart and chronic kidney disease with heart failure and stage 1 through stage 4 chronic kidney disease, or unspecified chronic kidney disease; J39.0 Retropharyngeal and parapharyngeal abscess; J43.9 Emphysema, unspecified; N18.9 Chronic kidney disease, unspecified; Z21 Asymptomatic human immunodeficiency virus [HIV] infection status; E78.00 Pure hypercholesterolemia, unspecified; Z86.73 Personal history of transient ischemic attack (TIA), and cerebral infarction without residual deficits; F17.210 Nicotine dependence, cigarettes, uncomplicated; M54.5 Low back pain; R26.9 Unspecified abnormalities of gait and mobility; F32.9 Major depressive disorder, single episode, unspecified